=== PATIENT | female | born 1950 | race Caucasian/White ===

== ENCOUNTER → 2018-04-27 10:17 | Outpatient (CLI) | payer MEDICARE, OTHER, SELFPAY ==
--- NOTE | 2018-04-27 10:21 | DI.MG.S_ITS ---
BILATERAL DIGITAL SCREENING MAMMOGRAM 3D/2D WITH CAD: 04/27/2018 CLINICAL: Routine screening. Family history of breast cancer. Comparison is made to exams dated: 04/14/2017 mammogram, 03/26/2016 mammogram, and 02/07/2015 mammogram - [facility]. There are scattered fibroglandular elements in both breasts. Current study was also evaluated with a Computer Aided Detection (CAD) system. There is possible architectual distortion in the outer right breast at middle depth seen only on the craniocaudal view, which appears to pull calcifications towards its center. There is an asymmetry in the upper right breast at anterior depth. No significant masses, calcifications, or other findings are seen in either breast. IMPRESSION: INCOMPLETE: NEEDS ADDITIONAL IMAGING EVALUATION 1) Possible architectual distortion in the outer right breast at middle depth seen only on the craniocaudal view. Additional views with possible ultrasound recommended. 2) Asymmetry in the upper right breast at anterior depth. Additional views with possible ultrasound recommended. This exam was interpreted at Station ID: [id number]. NOTE: For mammograms, a report in lay terms will be sent to the patient. Approximately 15% of breast malignancies will not be visualized mammographically. In the management of a palpable breast mass, a negative mammogram must not discourage biopsy of a clinically suspicious lesion. Electronically Signed By: Maldonado Ruiz M.D. ecl/:04/27/2018 13:22:48 letter sent: Additional Imaging Needed ACR BI-RADS Category 0: Incomplete [id number]
== END ==
PROVIDERS: Family Provider Physician Assistant; PCP Physician Assistant; Visit Provider Physician Assistant
DX: Z12.31 Encounter for screening mammogram for malignant neoplasm of breast (principal); Z80.3 Family history of malignant neoplasm of breast
CPT/HCPCS: 77063; 77067

== ENCOUNTER → 2018-05-11 13:31 | Outpatient (CLI) | payer MEDICARE, OTHER, SELFPAY ==
--- NOTE | 2018-05-11 13:36 | DI.MG.S_ITS ---
UNILATERAL RIGHT DIGITAL DIAGNOSTIC MAMMOGRAM 3D/2D WITH ADDITIONAL VIEWS: 05/11/2018 CLINICAL: Additional evaluation requested from prior study. Comparison is made to exams dated: 04/27/2018 mammogram, 04/14/2017 mammogram, and 03/26/2016 mammogram - [facility]. There are scattered fibroglandular elements in the right breast. The architectural distortion in the right breast at 7 o'clock middle depth is much less prominent on additional views. The asymmetry in the right breast anterior depth superior region seen on the mediolateral oblique view only is not definitely seen on additional views. No other significant masses or calcifications are seen in the breast. IMPRESSION: INCOMPLETE: NEEDS ADDITIONAL IMAGING EVALUATION The architectural distortion in the right breast at 7 o'clock middle depth is indeterminate. An ultrasound is recommended. The asymmetry in the right breast anterior depth superior region seen on the mediolateral oblique view only is indeterminate. An ultrasound is recommended. This exam was interpreted at Station ID: [id number]. NOTE: For mammograms, a report in lay terms will be sent to the patient. Approximately 15% of breast malignancies will not be visualized mammographically. In the management of a palpable breast mass, a negative mammogram must not discourage biopsy of a clinically suspicious lesion. Electronically Signed By: Melissa Lees M.D. lk/:05/11/2018 15:06:46 letter sent: Additional Imaging Needed ACR BI-RADS Category 0: Incomplete [id number]
--- NOTE | 2018-05-11 13:36 | DI.US.S_ITS ---
PROCEDURE: US BREAST RT LIMITED COMPARISON: [facility], , MM SPECIAL VIEW RT, 05/11/2018, 14:06. INDICATIONS: Abnormal mammogram FINDINGS: IMPRESSION: Dictated by: Melissa Lees M.D. on 05/11/2018 at 17:25 Approved by: Melissa Lees M.D. on 05/11/2018 at 17:28
[2018-05-11 13:54] LABS: Add Manual Diff / Slide Review NO; Basophils Percent Auto 0.9 % (0-2); Eosinophils Percent Auto 2.1 % (2-4); Hemoglobin 15.6 g/dL (12.0-16.0); Lymphocytes Percent Auto 43.7 % (25-40); Mean Corpuscular HGB Conc 35.5 % (30-36); Mean Corpuscular Hemoglobin 31.2 PG (26-34); Mean Corpuscular Volume 87.8 fL (80-100); Monocytes Percent Auto 5.5 % (3-14); Neutrophils Absolute Auto 2800 /uL (3000-5900); Neutrophils Percent Auto 47.8 % (50-75); Platelet Count 162 X10^3/uL (150-400); Red Blood Cell Count 5.02 X10^6/uL (4.0-5.2); Red Cell Distribution Width 13.1 % (11.6-14.8); White Blood Cell Count 5.9 X10^3/uL (4.5-11.0)
--- NOTE | 2018-05-11 17:28 | DI.US.S_ITS ---
Patient Name: KAREN BAUTISTA date: 1950 Sex: F Attending Physician: Colten Indications: Date: 05/11/2018 14:50 At the request of: TENISHA EDWARDS Procedure: US breast RT limited ULTRASOUND OF RIGHT BREAST: 05/11/2018 CLINICAL: Patient returns today to evaluate a density in the right breast. No prior exams were available for comparison. Color flow ultrasound of the right breast was performed on the areas of interest. Dunaway scale images of the real-time examination were reviewed. IMPRESSION: NEGATIVE There is no sonographic evidence of malignancy. There is no abnormality seen in the right breast to correspond with the subtle mammography finding at 11 o'clock. This finding likely represent normal fibroglandular tissue. There is no abnormality seen in the right breast to correspond with the mammography finding at 7 o'clock. This finding is unchanged on multiple prior mammograms and likely represents fibroglandular tisse. A 1 year screening mammogram is recommended. This exam was interpreted at Station ID: [id number]. Electronically Signed By: Melissa mccloud/:05/11/2018 17:28:47 letter sent: Normal Exam Ultrasound BI-RADS: 1 Negative
== END ==
PROVIDERS: Family Provider Physician Assistant; PCP Physician Assistant; Visit Provider Physician Assistant
DX: R92.8 Other abnormal and inconclusive findings on diagnostic imaging of breast (principal); R71.8 Other abnormality of red blood cells
CPT/HCPCS: 36415; 76642; 77065; 85025; G0279

== ENCOUNTER → 2018-10-19 11:01 | Outpatient (CLI) | payer MEDICARE, OTHER, SELFPAY ==
[2018-10-19 12:11] LABS: BUN Creatinine Ratio 34.3 (6-22); Blood Urea Nitrogen 24 mg/dL (7-17); Calcium 9.2 mg/dL (8.4-10.2); Carbon Dioxide 31 mmol/L (22-32); Chloride 95 mmol/L (98-107); Estimated Glomerular Filt Rate > 60.0 mL/min (>60); Glucose 83 mg/dL (80-110); HEMOLYSIS < 15 (0-50); Potassium 4.8 mmol/L (3.4-5.1); Sodium 135 mmol/L (137-145)
== END ==
PROVIDERS: PCP Physician Assistant; Visit Provider Physician Assistant
DX: R94.4 Abnormal results of kidney function studies (principal); Z51.81 Encounter for therapeutic drug level monitoring
CPT/HCPCS: 36415; 80048

== ENCOUNTER → 2018-10-23 11:15 | Outpatient (CLI) | payer MEDICARE, OTHER, SELFPAY ==
[2018-10-23 17:09] LABS: Microalbumin Urine Random < 0.6 mg/dL (0-1.6)
[2018-10-23 17:17] LABS: Creatinine Urine Random 12.1 mg/dL; Microalbumi Creatinin Ratio Ur < 49.5 ug/mg CR (<30)
== END ==
PROVIDERS: PCP Physician Assistant; Visit Provider Physician Assistant
DX: R79.9 Abnormal finding of blood chemistry, unspecified (principal); R89.9 Unspecified abnormal finding in specimens from other organs, systems and tissues
CPT/HCPCS: 82043; 82570

== ENCOUNTER → 2018-10-27 09:42 | Outpatient (CLI) | payer MEDICARE, OTHER, SELFPAY ==
[2018-10-27 12:14] LABS: Creatinine Urine Random 56.9 mg/dL
[2018-10-27 12:23] LABS: Microalbumi Creatinin Ratio Ur 10.5 ug/mg CR (<30); Microalbumin Urine Random < 0.6 mg/dL (0-1.6)
== END ==
PROVIDERS: PCP Physician Assistant; Visit Provider Physician Assistant
DX: R79.9 Abnormal finding of blood chemistry, unspecified (principal); R89.9 Unspecified abnormal finding in specimens from other organs, systems and tissues
CPT/HCPCS: 82043; 82570

== ENCOUNTER → 2018-10-31 16:13 | Outpatient (CLI) | payer MEDICARE, OTHER, SELFPAY ==
[2018-10-31 16:49] LABS: BUN Creatinine Ratio 38.3 (6-22); Blood Urea Nitrogen 23 mg/dL (7-17); Calcium 9.9 mg/dL (8.4-10.2); Carbon Dioxide 28 mmol/L (22-32); Chloride 101 mmol/L (98-107); Estimated Glomerular Filt Rate > 60.0 mL/min (>60); Glucose 135 mg/dL (80-110); HEMOLYSIS < 15 (0-50); Potassium 3.7 mmol/L (3.4-5.1); Sodium 141 mmol/L (137-145); Uric Acid 3.3 mg/dL (2.5-6.2)
== END ==
PROVIDERS: PCP Physician Assistant; Visit Provider Physician Assistant
DX: E80.4 Gilbert syndrome (principal); K31.84 Gastroparesis; E79.0 Hyperuricemia without signs of inflammatory arthritis and tophaceous disease
CPT/HCPCS: 36415; 80048; 84550

== ENCOUNTER → 2018-11-13 14:53 | Outpatient (CLI) | payer MEDICARE, OTHER, SELFPAY ==
--- NOTE | 2018-11-13 14:57 | DI.RAD.S_ITS ---
PROCEDURE: XR ANKLE LT MIN 3V INDICATIONS: Left Ankle Pain TECHNIQUE: 3 views of the ankle were acquired. COMPARISON: None. FINDINGS: Bones: There is a nondisplaced fracture identified involving the tip of the lateral malleolus. Ankle mortise is well-maintained. No additional fractures are evident. Moderate-sized plantar calcaneal spur is present. Soft tissues: There is a tibiotalar joint effusion. Soft tissue swelling about the ankle is present. IMPRESSION: Nondisplaced distal lateral malleolar fracture. Dictated by: Wilian Richmond M.D. on 11/13/2018 at 14:37 Approved by: Wilian Richmond M.D. on 11/13/2018 at 14:42
== END ==
PROVIDERS: Family Provider Physician Assistant; PCP Physician Assistant; Visit Provider Physician Assistant
DX: S82.65XA Nondisplaced fracture of lateral malleolus of left fibula, initial encounter for closed fracture (principal); M25.572 Pain in left ankle and joints of left foot; M77.32 Calcaneal spur, left foot
CPT/HCPCS: 73610

== ENCOUNTER → 2018-11-17 12:14 | Outpatient (CLI) | payer MEDICARE, OTHER, SELFPAY ==
--- NOTE | 2018-11-17 12:18 | DI.RAD.S_ITS ---
PROCEDURE: XR LUMBAR SPINE 2-3V INDICATIONS: right hip pain TECHNIQUE: 3 views of the lumbar spine were acquired. COMPARISON: None. FINDINGS: Bones: 5 [id number] vertebrae are present. There is abnormal bony alignment, with grade 1 anterolisthesis of L4 and L5. No vertebral body compression fractures. No suspicious bony lesions. Note is made of moderately severe to severe degenerative disc disease at L5-S1, and also moderately severe facet osteoarthritis at becoming progressively more prominent from L3-S1. Soft tissues: Overlying bowel gas pattern is normal. No suspicious soft tissue calcifications. IMPRESSION: No acute disease is found and no trauma is seen over the lower half of the LS-spine there is progressively greater degenerative disc disease and facet osteoarthritis to the degree that significant spinal and foraminal stenosis would be expected. Dictated by: Jose Leon M.D. on 11/17/2018 at 12:35 Approved by: Jose Leon M.D. on 11/17/2018 at 12:37
== END ==
PROVIDERS: Family Provider Physician Assistant; PCP Physician Assistant; Visit Provider Physician Assistant
DX: M25.551 Pain in right hip (principal); M51.37 Other intervertebral disc degeneration, lumbosacral region; M47.817 Spondylosis without myelopathy or radiculopathy, lumbosacral region
CPT/HCPCS: 72110

== ENCOUNTER → 2018-11-25 09:33 | Outpatient (CLI) | payer MEDICARE, OTHER, SELFPAY ==
--- NOTE | 2018-11-25 09:37 | DI.MRI.S_ITS ---
PROCEDURE: MR LUMBAR SPINE WO CON INDICATIONS: Persistant low back pain radiating into right hip TECHNIQUE: Noncontrast sagittal T1 spin echo and T2 fast echo, sagittal STIR, axial T1 and T2 fast spin echo through the lumbar spine. In cases with scoliosis, additional coronal T2 fast spin echo may be performed. COMPARISON: [facility], CR, XR ANKLE LT MIN 3V, 11/13/2018, 15:06. [facility], CR, XR LUMBAR SPINE 2-3V, 11/17/2018, 12:19. FINDINGS: Image quality: Excellent. Alignment and Curvature: There are 5 lumbar-type vertebral bodies by plain film. There is mild, grade 1 retrolisthesis of L3 on L4 and L4 on L5. Bone Marrow: Marrow is of normal overall signal. No acute vertebral body compression fractures. T12 hemangioma. Minimal reactive signal within the endplates adjacent to the L3-L4 intervertebral disc. Spinal Cord: Conus medullaris terminates at the L1-L2 disc space level. Visualized cord demonstrates normal signal and size. Paraspinous Soft Tissues: No paravertebral masses. L1-L2: Mild disc desiccation. Mild facet and ligamentum flavum hypertrophy. No significant canal, nor foraminal stenosis. L2-L3: Mild disc desiccation and diffuse disc bulge with small superimposed right far lateral broad-based protrusion. Mild ligamentum flavum hypertrophy. Mild canal stenosis. Mild right greater than left foraminal stenosis. L3-L4: Mild disc height loss and desiccation. Mild diffuse disc bulge with small superimposed broad based right far lateral protrusion. Mild facet and ligamentum flavum hypertrophy. Mild canal stenosis. Mild right greater than left foraminal stenosis. L4-L5: Mild disc desiccation and diffuse disc bulge. Moderate facet hypertrophy bilaterally. Mild canal stenosis. Mild foraminal stenosis bilaterally. L5-S1: Moderate disc height loss and desiccation. Mild diffuse disc bulge/osteophyte. Mild bilateral facet hypertrophy. Mild canal stenosis. Mild bilateral foraminal stenosis. IMPRESSION: 1.Multilevel degenerative disc and facet disease, as well as ligamentum flavum hypertrophy and epidural lipomatosis. 2. Mild multilevel canal and foraminal stenoses. 3. No neural impingement. Dictated by: Sabine Sun M.D. on 11/27/2018 at 10:22 Approved by: Sabine Sun M.D. on 11/27/2018 at 10:31
== END ==
PROVIDERS: Family Provider Physician Assistant; PCP Physician Assistant; Visit Provider Physician Assistant
DX: M54.5 Low back pain (principal); M51.16 Intervertebral disc disorders with radiculopathy, lumbar region; M51.17 Intervertebral disc disorders with radiculopathy, lumbosacral region; M48.061 Spinal stenosis, lumbar region without neurogenic claudication; M48.07 Spinal stenosis, lumbosacral region; E88.2 Lipomatosis, not elsewhere classified
CPT/HCPCS: 72148

== ENCOUNTER → 2019-03-06 16:43 | Outpatient (CLI) | payer MEDICARE, OTHER, SELFPAY ==
[2019-03-06 17:19] LABS: Add Manual Diff / Slide Review NO; Basophils Absolute Auto 0 /uL (0-100); Basophils Percent Auto 0.8 % (0-2); Eosinophils Absolute Auto 200 /uL (0-450); Eosinophils Percent Auto 3.7 % (2-4); Hematocrit 44.9 % (36-46); Hemoglobin 15.6 g/dL (12.0-16.0); Lymphocytes Absolute Auto 2000 /uL (1100-4500); Lymphocytes Percent Auto 38.6 % (25-40); Mean Corpuscular HGB Conc 34.7 % (30-36); Mean Corpuscular Hemoglobin 30.1 PG (26-34); Mean Corpuscular Volume 86.8 fL (80-100); Monocytes Absolute Auto 300 /uL (0-900); Monocytes Percent Auto 5.8 % (3-14); Neutrophils Absolute Auto 2600 /uL (1500-7000); Neutrophils Percent Auto 51.1 % (50-75); Platelet Count 172 X10^3/uL (150-400); Red Blood Cell Count 5.18 X10^6/uL (4.0-5.2); Red Cell Distribution Width 13.4 % (11.6-14.8); White Blood Cell Count 5.1 X10^3/uL (4.5-11.0)
[2019-03-06 17:56] LABS: Alanine Aminotransferase 34 IU/L (9-52); Albumin 4.5 g/dL (3.5-5.0); Albumin Globulin Ratio 1.6 (1.0-2.8); Alkaline Phosphatase 132 U/L (38-126); Aspartate Aminotransferase 33 IU/L (14-36); Bilirubin Total 1.3 mg/dL (0.2-1.3); Blood Urea Nitrogen 21 mg/dL (7-17); Calcium 10.1 mg/dL (8.4-10.2); Carbon Dioxide 31 mmol/L (22-32); Chloride 99 mmol/L (98-107); Estimated Glomerular Filt Rate > 60.0 mL/min (>60); Globulin 2.8 g/dL (1.7-4.1); Glucose 97 mg/dL (80-110); HEMOLYSIS < 15 (0-50); Potassium 4.4 mmol/L (3.4-5.1); Sodium 138 mmol/L (137-145); Total Protein 7.3 g/dL (6.3-8.2); Uric Acid 4.8 mg/dL (2.5-6.2)
[2019-03-06 18:12] LABS: Vitamin D 25 Hydroxy (D3) 46.3 ng/mL (30.0-100.0)
[2019-03-06 18:23] LABS: Iron 74 ug/dL (37-170)
[2019-03-06 18:26] LABS: Thyroid Stimulating Hormone 1.78 uIU/mL (0.47-4.68)
[2019-03-06 18:44] LABS: Vitamin B12 685 pg/mL (239-931)
== END ==
PROVIDERS: Family Provider Physician Assistant; PCP Physician Assistant; Visit Provider Physician Assistant
DX: E79.0 Hyperuricemia without signs of inflammatory arthritis and tophaceous disease (principal); E80.4 Gilbert syndrome; M25.50 Pain in unspecified joint; R19.4 Change in bowel habit; R53.83 Other fatigue; M81.0 Age-related osteoporosis without current pathological fracture
CPT/HCPCS: 36415; 80053; 82306; 82607; 83540; 84443; 84550; 85025

== ENCOUNTER → 2019-03-16 13:31 | Outpatient (CLI) | payer MEDICARE, OTHER, SELFPAY | PROVIDERS: Family Provider Physician Assistant; PCP Physician Assistant; Visit Provider Physician Assistant | DX: M85.80 Other specified disorders of bone density and structure, unspecified site (principal); Z78.0 Asymptomatic menopausal state; K92.9 Disease of digestive system, unspecified; Z82.62 Family history of osteoporosis; Z87.81 Personal history of (healed) traumatic fracture | CPT/HCPCS: 77080 ==

== ENCOUNTER → 2019-03-19 12:08 | Outpatient (CLI) | payer MEDICARE, OTHER, SELFPAY ==
--- NOTE | 2019-03-19 | DI.US.S_ITS ---
PROCEDURE: US ABDOMEN LIMITED INDICATIONS: ELEVATED LFTS, CHANGE IN BOWEL HABITS TECHNIQUE: Real-time focused scanning was performed of the abdomen, with image documentation. COMPARISON: [facility], CT, ABDOMEN/PELVIS WITH CONTRAST, 01/07/2016, 11:45. [facility], US, ABDOMEN COMPLETE, 03/06/2014, 8:53. FINDINGS: Liver is diffusely increased in echogenicity. Presumed mid right hepatic lobe hemangioma not significantly changed measuring 2.4 x 2.0 x 2.8 cm. Normal hepatic size. Normal gallbladder. Prominence of the extra hepatic bile duct measuring up to 8.9 mm. IMPRESSION: 1. Increased hepatic echogenicity noted possibly related to hepatic steatosis but other sources of hepatocellular disease cannot be excluded. Recommend clinical correlation. 2. Presumed cavernous hemangioma within the mid right hepatic lobe not significantly changed. 3. Prominence of the extra hepatic bile duct. Recommend correlation with LFTs. Dictated by: Marcellus RODRIGUEZ Interpreted: Blanca Berger MD on 03/19/2019 at 13:53 Approved by: Blanca Berger MD, PhD on 03/19/2019 at 16:32
== END ==
PROVIDERS: Family Provider Physician Assistant; PCP Physician Assistant; Visit Provider Internal Medicine
DX: R19.4 Change in bowel habit (principal); R79.89 Other specified abnormal findings of blood chemistry
CPT/HCPCS: 76705

== ENCOUNTER 2019-03-21 13:13 | Day surgery (SDC) | payer MEDICARE, OTHER, SELFPAY ==
[2019-03-21 14:25] VITALS: BP 151/78; PULSE 65; RESP 99; TEMP 37; O2SAT 17
[2019-03-21 14:29] VITALS: BMI 22.6
[2019-03-21] MEDS: SODIUM CHLORIDE 0.9% 1,000 ML 200 ML IV (14:43)
--- NOTE | 2019-03-21 15:53 | PM.PREOP ---
Pre-operative Note Interval Note History & Physical reviewed/Exam performed by Physician: Yes Changes to H&P: No ASA Class (for procedural sedation): II
--- NOTE | 2019-03-21 16:28 | SUR.OPER ---
GLASSES IN LABELED BAG TO PACU WITH PATIENT.
[2019-03-21] MEDS: fentaNYL 250 MCG/5 ML INJ IV (16:33)
[2019-03-21] MEDS: MIDAZOLAM 5 MG/5 ML VIAL IV (16:34)
--- NOTE | 2019-03-21 17:08 | PM.OP.ENDO ---
Operative Date/Time/Diagnoses Date of procedure: 03/21/19 Procedure & Clinicians Study performed: Colonoscopy Moderate conscious sedation was administered by the endoscopy nurse and supervised by the endoscopist. The following parameters were monitored: Oxygen saturation, heart rate, blood pressure, and response to care. Sedation: 6 mg IV midazolam, 150 mcg IV fentanyl Indications: Change in bowel habits. Personal history of colon polyps. Last colonoscopy 2013 Procedure Notes Procedure in detail: Prior to the procedure, history and physical was performed, and patient medications and allergies were reviewed. Preprocedure nursing history and assessment was reviewed. Patient identification and proposed procedure were verified by the physician and nurse in the procedure room. The physical status of the patient was reassessed after the procedure. After informed consent was obtained including risks, benefits, and alternatives, the scope was passed under direct vision. Throughout the procedure, the patient's blood pressure, pulse, and oxygen saturations were monitored continuously. The slim colonoscope was introduced through the anus and advanced to the cecum as identified by the appendiceal orifice and ileocecal valve. The patient tolerated the procedure well. Bowel prep was deemed adequate to detect polyps greater than 5 mm. PRATIK and perianal examinations were unremarkable. Retroflexion in the rectum was unrevealing The entire examined colon was markedly tortuous. There was looping in the sigmoid colon. Many sigmoid colon diverticula were noted Impression: Sigmoid colon diverticulosis Tortuous colon No specimens taken Sedation minutes: 34 Complications: other (EBL none. No complications) Plan for aftercare: Repeat colonoscopy in 5 years for screening purposes Resume home medications High fiber diet Follow-up in GI clinic as previously scheduled Patient has a contact number available for emergencies. The signs and symptoms of potential delayed complications were discussed with the patient. Return to normal activities tomorrow. Written discharge instructions were provided to the patient. Discharge home with escort
== END 2019-03-21 17:25 | disposition home or self-care (01) ==
PROVIDERS: Family Provider Physician Assistant; PCP Physician Assistant; Visit Provider Internal Medicine
PROC: 0DJD8ZZ Inspection of Lower Intestinal Tract, Via Natural or Artificial Opening Endoscopic (ICD-10-PCS; CPT 45378; principal; 2019-03-21 15:00)
DX: R19.4 Change in bowel habit (principal); K57.30 Diverticulosis of large intestine without perforation or abscess without bleeding; R79.89 Other specified abnormal findings of blood chemistry; Z86.010 Personal history of colon polyps; Z80.0 Family history of malignant neoplasm of digestive organs
CPT/HCPCS: 45378; J2250; J3010

== ENCOUNTER 2019-03-26 09:23 | Emergency (ER) | payer MEDICARE, OTHER, SELFPAY ==
[2019-03-26 09:31] VITALS: BP 181/64; PULSE 66; RESP 20; TEMP 36.9; O2SAT 99; BMI 22.7
--- NOTE | 2019-03-26 10:00 | ED.ABDPAIN ---
HPI - Abdominal Pain General Chief Complaint: Abdominal Pain Stated Complaint: Abd pain Time Seen by Provider: 03/26/19 09:44 Source: patient Mode of arrival: ambulatory Limitations: no limitations History of Present Illness HPI narrative: Patient comes emergency department complaining of right upper quadrant abdominal pain that is under her ribs. Patient states she has been having this pain for years on and off, but that this time, she has nausea. Patient states she did had a big workup for the pain of 5 years ago, and nothing was found. The patient just had a colonoscopy this last week with Dr. Parekh, and she states that she mentioned to him that her liver enzymes had been elevated on and off over time, and he decided to do an ultrasound of her right upper quadrant. Patient states that he told her that she had a dilated common bile duct. She was not notified of any gallstones, though she states she has never been found to have gallstones in the past. Patient states her bilirubin has fluctuated between normal and mildly elevated over the last couple years. Patient states that her colonoscopy was unremarkable, as well as she knows, and that her health is otherwise good. No other complaints at this time. No chest pain or shortness breath. No cough. No fevers. No urinary symptoms. Patient has been nauseated and has vomited once this morning, but states she is feeling better now. She states pressure makes the pain worse, and nothing makes it better. It generally just resolved on its own, she states. Related Data Home Medications Medication Instructions Recorded Confirmed ResMed Aircurve 10 BIPAP #1 ea 10/26/18 03/26/19 levalbuterol 1.25 mg/3 mL solution 1.25 mg INHALATION Q4-6H PRN 12/28/18 03/26/19 for nebulization fluticasone propionate 110 1 - 2 puff INHALATION Q12H PRN 03/06/19 03/26/19 mcg/actuation HFA aerosol inhaler metronidazole 1 % topical cream 1 applictn TOP BID gram 03/06/19 03/26/19 mupirocin 2 % topical ointment 1 applictn TOP BID PRN 03/06/19 03/26/19 cholecalciferol (vitamin D3) 1,000 unit PO DAILY 03/26/19 03/26/19 [Vitamin D3] epinephrine [EpiPen 2-Niles] 3 ml IM PRN PRN 03/26/19 03/26/19 ketotifen fumarate [Zaditor] 1 drp EYE-BOTH PRN PRN 03/26/19 03/26/19 lifitegrast [Xiidra] 1 drp EYE-BOTH Q12H 03/26/19 03/26/19 loratadine [Claritin] 10 mg PO DAILY PRN 03/26/19 03/26/19 omega [id number]-fish oil [Fish Oil] 1,000 mg PO DAILY 03/26/19 03/26/19 polyethylene glycol 3350 [Miralax] 2 tsp PO DAILY 03/26/19 03/26/19 ranitidine HCl 150 mg PO BEDTIME PRN 03/26/19 03/26/19 Previous Rx's Medication Instructions Recorded azelastine 137 mcg (0.1 %) nasal 1 - 2 spray INTRANASAL BID #200 05/17/18 spray aerosol actuation levalbuterol HFA 45 mcg/actuation 2 puff INHALATION Q4-6H PRN #15 01/04/19 aerosol inhaler gram zolpidem 5 mg tablet 5 mg PO BEDTIME PRN #30 tab 01/04/19 Spacer for inhaler #1 ea 02/02/19 hyoscyamine sulfate 0.25 mg PO QID PRN #20 tab 03/26/19 ondansetron 4 mg PO Q6H PRN #14 tab 03/26/19 Allergies Allergy/AdvReac Type Severity Reaction Status Date / Time hydrocodone [HYDROCODONE] Allergy Intermediate ITCHY, Verified 03/21/19 14:34 NAUSEA, SOB Proton Pump Inhibitors AdvReac Severe Diarrhea - Verified 03/21/19 14:34 [PROTON PUMP INHIBITORS] severe cetirizine [CETIRIZINE] AdvReac Intermediate insomnia, Verified 03/21/19 14:34 nightmares fexofenadine [From DILAN] AdvReac Intermediate UNABLE TO Verified 03/21/19 14:34 SLEEP ENOUGH TO DISRUPT LIFE fluorouracil [From Efudex] AdvReac Intermediate depression Verified 03/21/19 14:34 and brain fogginess Latex, Natural Rubber AdvReac Intermediate Skin Verified 03/21/19 14:34 redness montelukast [MONTELUKAST] AdvReac Intermediate Anxiety Verified 03/21/19 14:34 palpitations rabeprazole [From ACIPHEX] AdvReac Mild Headaches Verified 03/21/19 14:34 Dry throat Review of Systems Constitutional Denies chills, Denies fever(s), Denies lethargy and Denies weakness Eyes Denies change in vision, Denies eye discharge, Denies irritation and Denies loss of vision ENT Ears, Nose, Mouth, and Throat: Denies change in voice, Denies neck pain and Denies sore throat Cardiovascular Denies chest pain, Denies irregular heart rhythm, Denies lightheadedness, Denies palpitations, Denies dyspnea, Denies dyspnea on exertion and Denies orthopnea Respiratory Denies cough, Denies dyspnea, Denies dyspnea on exertion and Denies wheezing Gastrointestinal Gastrointestinal: Reports abdominal pain, Denies change in bowel habits, Denies diarrhea, Denies nausea and Denies vomiting Genitourinary Denies hematuria, Denies flank pain, Denies urinary incontinence and Denies urinary urgency Musculoskeletal Denies neck pain Integumentary/Breasts Denies pruritus, Denies erythema, Denies rash and Denies wounds Neurologic Denies confusion, Denies loss of vision and Denies weakness Psychiatric Denies anxiety, Denies confusion, Denies depression, Denies homicidal ideation and Denies suicidal ideation Endocrine Denies palpitations Hematologic/Lymphatic Denies easy bruising Allergic/Immunologic Denies wheezing ON LICENSE OF [facility] Medical History Allergic rhinitis (Chronic) Asthma (Chronic) 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) Eczema (Chronic) GERD (gastroesophageal reflux disease) (Chronic) Gastroparesis (Chronic) Multinodular goiter (Chronic ~1999) SVT (supraventricular tachycardia) (Chronic 02/2016) Sleep apnea (Chronic) Actinic keratosis (Resolved) Colon polyps (Resolved 04/2014) Gastric polyps (Resolved 04/2014) Family History Father Heart disease Mother Dementia Social History marital status: details: to Mert, lives in [place] number of children: 0 household members: spouse lives independently: Yes caregiver/support person: No housing: house pets and animals: Yes (dog, Nery) education level: college 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, 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 Smoking Status: Former smoker Tobacco: How many years used: 1 second hand exposure: Yes alcohol intake: current substance use type: does not use Exam Initial Vital Signs Initial Vital Signs: Vital Signs Temperature 98.4 F 03/26/19 09:31 Pulse Rate 66 03/26/19 09:31 Respiratory Rate 20 03/26/19 09:31 Blood Pressure 181/64 H 03/26/19 09:31 Pulse Oximetry 99 03/26/19 09:31 Const General: cooperative and well developed Nutritional Appearance: well nourished Orientation: alert, awake, oriented x3 and not confused HENMT Head: normocephalic and atraumatic Ears: external ears normal Nose: external nose normal and No nasal discharge Face and sinus: face symmetric and No dry mucous membranes Mouth: oral mucosae normal and moist mucous membranes Teeth and gingiva: dentition normal Eyes General: appearance normal, both eyes and all related structures Eyelids: eyelids normal Conjunctivae: conjunctivae normal Sclera: sclerae normal Pupils: PERRL EOM: EOM intact bilaterally Neck Neck: normal visual inspection, trachea midline, No lymphadenopathy, No midline deformity and No JVD Lymphatic: No lymphedema Chest Chest: normal inspection of the chest Resp Effort & Inspection: normal respiratory effort, able to speak in complete sentences, no respiratory distress and no use of accessory muscles Auscultation: clear to auscultation bilaterally, no rales, no rhonchi and no wheezes Cardio Rate: regular rate Rhythm: regular rhythm Heart Sounds: no click, no gallops, no murmurs and no rubs Pulses: normal peripheral pulses GI Inspection: non-distended Palpation: soft, no hepatosplenomegaly, No guarding, No pulsatile mass and No tender Auscultation: normal bowel sounds Back/Spine/Pelvis Back: No CVA tenderness Cervical Spine: cervical ROM normal and No pain with cervical ROM Thoracic/Lumbar Spine: thoracic and lumbar spine normal to inspection Skin General: no rashes or lesions noted, No jaundice and No petechiae Neuro General: alert, oriented x3, gait normal and no focal motor deficits Speech: speech normal Extrem General: full ROM, no clubbing, cyanosis or edema, no pedal edema and no calf tenderness Psych Appearance: well kempt Mental Status: mental status grossly normal Attitude: cooperative Thought Content: normal and suicidality Judgment: judgment good Course Course Narrative: The patient was worked up with laboratory studies, and treated symptomatically for her pain and nausea. Medical records were reviewed, and it was found that she had a slight dilation of the extrahepatic bile duct at 8.9 mm. No stones appear to have been visualized. Patient was also found to have hepatic steatosis. Repeat ultrasound today was essentially unchanged. I spoke with Dr. Robins who did not feel that the patient needed any further intervention at this time. She recommended that patient follow up with Dr. Parekh, and get set up for an ERCP or MRCP as an outpatient and non emergently. I discussed the plan with the patient, who is agreeable. Patient was found to be feeling better after symptomatic treatment in the emergency department. We have discussed the usual indications for return. Orders Ordered: Discontinued Medications Hydromorphone HCl (Dilaudid) 0.5 mg IV NOW ONE Stop: 03/26/19 10:01 Last Admin: 03/26/19 10:15 Dose: 0.5 mg Sodium Chloride (Normal Saline 0.9%) 1,000 mls @ 1,000 mls/hr IV BOLUS ONE Stop: 03/26/19 10:59 Last Infusion: 03/26/19 11:06 Dose: 0 mls/hr Admin: 03/26/19 10:15 Dose: 1,000 mls/hr Ketorolac Tromethamine (Toradol) 30 mg IV NOW ONE Stop: 03/26/19 10:01 Last Admin: 03/26/19 10:14 Dose: 30 mg Ondansetron HCl (Zofran) 4 mg IV NOW ONE Stop: 03/26/19 10:01 Last Admin: 03/26/19 10:14 Dose: 4 mg Vital Signs - 8 hr 03/26/19 09:31 03/26/19 10:30 03/26/19 11:00 Temperature 98.4 F Pulse Rate 66 58 L 64 Respiratory Rate 20 15 Blood Pressure 181/64 H Blood Pressure [Left Arm] 153/74 H 147/106 H Pulse Oximetry 99 100 03/26/19 12:01 Temperature Pulse Rate 58 L Respiratory Rate 16 Blood Pressure Blood Pressure [Left Arm] 151/79 H Pulse Oximetry 98 MDM - Abdominal Pain Medical Records Attestation: I reviewed the patient's medical records. Lab Data Attestation: I reviewed the patient's lab results. Result diagrams: 03/26/19 09:51 03/26/19 10:30 Lab Results 03/26/19 03/26/19 Range/Units 09:51 10:30 WBC 4.5 (4.5-11.0) X10^3/uL RBC 5.22 H (4.0-5.2) X10^6/uL Hgb 15.8 (12.0-16.0) g/dL Hct 45.2 (36-46) % MCV 86.6 (80-100) fL MCH 30.2 (26-34) PG MCHC 34.9 (30-36) % RDW 13.8 (11.6-14.8) % Plt Count 183 (150-400) X10^3/uL Neut % (Auto) 44.5 L (50-75) % Lymph % (Auto) 42.9 H (25-40) % Payne % (Auto) 6.9 (3-14) % Eos % (Auto) 4.9 H (2-4) % Baso % (Auto) 0.8 (0-2) % Neut # (Auto) 2000 (4451-7563) /uL Lymph # (Auto) 1900 (2064-8394) /uL Payne # (Auto) 300 (0-900) /uL Eos # (Auto) 200 (0-450) /uL Baso # (Auto) 0 (0-100) /uL Sodium 142 (137-145) mmol/L Potassium 4.1 (3.4-5.1) mmol/L Chloride 108 H (98-107) mmol/L Carbon Dioxide 26 (22-32) mmol/L BUN 19 H (7-17) mg/dL Creatinine 0.70 (0.52-1.04) mg/dL Estimated GFR > 60.0 (>60) mL/min BUN/Creatinine Ratio 27.1 H (6-22) Glucose 89 (80-110) mg/dL Calcium 8.9 (8.4-10.2) mg/dL Total Bilirubin 1.5 H (0.2-1.3) mg/dL AST 26 (14-36) IU/L ALT 36 (9-52) IU/L Alkaline Phosphatase 101 (38-126) U/L Total Protein 6.5 (6.3-8.2) g/dL Albumin 3.9 (3.5-5.0) g/dL Globulin 2.6 (1.7-4.1) g/dL Albumin/Globulin Ratio 1.5 (1.0-2.8) Imaging Data US - abdomen: Radiologist's impression: PROCEDURE: US ABDOMEN LIMITED INDICATIONS: INCREASED RUQ PAIN TECHNIQUE: Real-time scanning was performed of the abdominal and retroperitoneal organs, with image documentation. COMPARISON: [facility], CT, ABDOMEN/PELVIS WITH CONTRAST, 01/07/2016, 11:45. [facility], [place], US ABDOMEN LIMITED, 03/19/2019, 12:46. FINDINGS: Liver: The liver is normal in size and demonstrates moderately increased echogenicity when compared to the right kidney. A small ovoid area of decreased echogenicity within the liver near the gregory hepatis is evident measuring up to 1.4 cm. A similar appearance is noted within the region of the gallbladder fossa. However, there is a heterogeneous structure that demonstrates decreased echogenicity involving the right hepatic lobe that measures up to 3 cm in diameter (previously measuring up to 2.8 cm in diameter. Gallbladder: No cholelithiasis or evidence of gallbladder wall inflammation. Biliary ducts: Intrahepatic bile ducts are non-dilated. Extrahepatic bile duct caliber measures 10 mm. Normal is 6-7 mm or less in diameter, or 10 mm or less post-cholecystectomy. Pancreas: Visualized portions of the pancreas are sonographically normal. Spleen: Spleen is normal in size and homogeneous in echotexture. Kidneys: The kidneys were not adequately evaluated. However, the imaged portions of both kidneys are within normal limits without hydronephrosis. IMPRESSION: 1. Hepatic steatosis. Please correlate clinically to exclude other chronic liver diseases. (There likely are small areas of fatty sparing within the left hepatic lobe.) 2. No cholelithiasis or evidence of acute cholecystitis. 3. Hemangioma within the right hepatic lobe is slightly larger on the current study. 4. Dilatation of the common bile duct may be within normal limits for this patient. Please correlate clinically with laboratory values. If there is clinical concern for choledocholithiasis, please consider MRCP for further evaluation. Dictated by: Wilian Richmond M.D. on 03/26/2019 at 13:01 Approved by: Wilian Richmond M.D. on 03/26/2019 at 13:06 Discharge Plan Departure Patient Disposition: Home Clinical Impression: Abdominal pain Qualifiers: Abdominal location: right upper quadrant Qualified Code(s): R10.11 - Right upper quadrant pain Discharge Date/Time: 03/26/19 14:18 Interventions: ED Discharge Assessment Last Done: 03/26/19 14:17 Instructions: DI for Abdominal Pain-Adult Activity Restrictions/Additional Instructions: Your labs look great. Your bilirubin is very slightly elevated at 1.5, but the rest of your liver labs are normal. Your ultrasound is unchanged from the 1 he had last week, which showed a very mild dilation of your common bile duct. Her case has been discussed with the on-call surgeon, who does not feel that there is any emergent intervention that needs to be done today. He will most likely need to have an ERCP or MRCP, and should follow up with Dr. Parekh to discuss this. Please call his office tomorrow to make an appointment for follow-up. Prescriptions: New ondansetron 4 mg tablet,disintegrating 4 mg PO Q6H PRN (Reason: nausea and vomiting) Qty: 14 RF: 0 hyoscyamine sulfate 0.125 mg tablet,disintegrating 0.25 mg PO QID PRN (Reason: dyspepsia) Qty: 20 RF: 0 No Action levalbuterol HCl 1.25 mg/3 mL solution for nebulization 1.25 mg INHALATION Q4-6H PRN (Reason: Allergic Symptoms) RF: 0 zolpidem 5 mg tablet 5 mg PO BEDTIME PRN (Reason: insomnia when traveling) Qty: 30 RF: 0 levalbuterol tartrate [Xopenex HFA] 45 mcg/actuation HFA aerosol inhaler 2 puff INHALATION Q4-6H PRN (Reason: shortness of breath or wheezing) Qty: 15 RF: 3 azelastine 137 mcg (0.1 %) aerosol,spray 1 - 2 spray Intranasal BID Qty: 200 RF: 3 Spacer for inhaler Qty: 1 RF: 0 Flovent HFA 110 mcg/actuation HFA aerosol inhaler 1 - 2 puff INHALATION Q12H PRN (Reason: Allergy Symptoms) RF: 0 metronidazole 1 % cream 1 applictn TOP BID RF: 0 mupirocin 2 % ointment 1 applictn TOP BID PRN (Reason: Allergy Symptoms) RF: 0 epinephrine [EpiPen 2-Niles] 0.3 mg/0.3 mL auto-injector 3 ml IM PRN PRN (Reason: Allergic Reaction) RF: 0 Xiidra 5 % dropperette 1 drp EYE-BOTH Q12H RF: 0 ketotifen fumarate [Zaditor] 0.025 % (0.035 %) Drops 1 drp EYE-BOTH PRN PRN (Reason: Allergy Symptoms) RF: 0 polyethylene glycol 3350 [Miralax] 17 gram/dose Powder 2 tsp PO DAILY RF: 0 loratadine [Claritin] 10 mg Tablet 10 mg PO DAILY PRN (Reason: Allergy Symptoms) RF: 0 cholecalciferol (vitamin D3) [Vitamin D3] 1,000 unit Capsule 1,000 unit PO DAILY RF: 0 omega 8-hfq-ppo-fish oil [Fish Oil] 1,000 mg (120 mg-180 mg) Capsule 1,000 mg PO DAILY RF: 0 ranitidine HCl 150 mg capsule 150 mg PO BEDTIME PRN (Reason: Heartburn) RF: 0 ResMed Aircurve 10 BIPAP Qty: 1 RF: 0 Referrals: Megan Abel PA-C [Primary Care Provider] -
[2019-03-26 10:12] LABS: Add Manual Diff / Slide Review NO; Basophils Absolute Auto 0 /uL (0-100); Basophils Percent Auto 0.8 % (0-2); Eosinophils Absolute Auto 200 /uL (0-450); Eosinophils Percent Auto 4.9 % (2-4); Hematocrit 45.2 % (36-46); Hemoglobin 15.8 g/dL (12.0-16.0); Lymphocytes Absolute Auto 1900 /uL (1100-4500); Lymphocytes Percent Auto 42.9 % (25-40); Mean Corpuscular HGB Conc 34.9 % (30-36); Mean Corpuscular Hemoglobin 30.2 PG (26-34); Mean Corpuscular Volume 86.6 fL (80-100); Monocytes Absolute Auto 300 /uL (0-900); Monocytes Percent Auto 6.9 % (3-14); Neutrophils Absolute Auto 2000 /uL (1500-7000); Neutrophils Percent Auto 44.5 % (50-75); Platelet Count 183 X10^3/uL (150-400); Red Blood Cell Count 5.22 X10^6/uL (4.0-5.2); Red Cell Distribution Width 13.8 % (11.6-14.8); White Blood Cell Count 4.5 X10^3/uL (4.5-11.0)
[2019-03-26] MEDS: KETOROLAC 60 MG/2 ML VIAL 30 MG IV (10:14)
[2019-03-26] MEDS: ONDANSETRON 4 MG/2 ML INJ IV (10:14)
[2019-03-26] MEDS: SODIUM CHLORIDE 0.9% 1,000 ML 1000 ML IV (10:15)
[2019-03-26] MEDS: HYDROMORPHONE 1 MG INJ 0.5 MG IV (10:15)
[2019-03-26 10:30] VITALS: BP 153/74; PULSE 58; RESP 15; O2SAT 100
[2019-03-26 10:52] LABS: Alanine Aminotransferase 36 IU/L (9-52); Albumin 3.9 g/dL (3.5-5.0); Albumin Globulin Ratio 1.5 (1.0-2.8); Alkaline Phosphatase 101 U/L (38-126); Aspartate Aminotransferase 26 IU/L (14-36); BUN Creatinine Ratio 27.1 (6-22); Bilirubin Total 1.5 mg/dL (0.2-1.3); Blood Urea Nitrogen 19 mg/dL (7-17); Calcium 8.9 mg/dL (8.4-10.2); Carbon Dioxide 26 mmol/L (22-32); Chloride 108 mmol/L (98-107); Estimated Glomerular Filt Rate > 60.0 mL/min (>60); Globulin 2.6 g/dL (1.7-4.1); Glucose 89 mg/dL (80-110); HEMOLYSIS < 15 (0-50); Potassium 4.1 mmol/L (3.4-5.1); Sodium 142 mmol/L (137-145); Total Protein 6.5 g/dL (6.3-8.2)
[2019-03-26 11:00] VITALS: BP 147/106; PULSE 64
[2019-03-26 12:01] VITALS: BP 151/79; PULSE 58; RESP 16; O2SAT 98
--- NOTE | 2019-03-26 12:20 | DI.US.S_ITS ---
PROCEDURE: US ABDOMEN LIMITED INDICATIONS: INCREASED RUQ PAIN TECHNIQUE: Real-time scanning was performed of the abdominal and retroperitoneal organs, with image documentation. COMPARISON: [facility], CT, ABDOMEN/PELVIS WITH CONTRAST, 01/07/2016, 11:45. [facility], [place], US ABDOMEN LIMITED, 03/19/2019, 12:46. FINDINGS: Liver: The liver is normal in size and demonstrates moderately increased echogenicity when compared to the right kidney. A small ovoid area of decreased echogenicity within the liver near the gregory hepatis is evident measuring up to 1.4 cm. A similar appearance is noted within the region of the gallbladder fossa. However, there is a heterogeneous structure that demonstrates decreased echogenicity involving the right hepatic lobe that measures up to 3 cm in diameter (previously measuring up to 2.8 cm in diameter. Gallbladder: No cholelithiasis or evidence of gallbladder wall inflammation. Biliary ducts: Intrahepatic bile ducts are non-dilated. Extrahepatic bile duct caliber measures 10 mm. Normal is 6-7 mm or less in diameter, or 10 mm or less post-cholecystectomy. Pancreas: Visualized portions of the pancreas are sonographically normal. Spleen: Spleen is normal in size and homogeneous in echotexture. Kidneys: The kidneys were not adequately evaluated. However, the imaged portions of both kidneys are within normal limits without hydronephrosis. IMPRESSION: 1. Hepatic steatosis. Please correlate clinically to exclude other chronic liver diseases. (There likely are small areas of fatty sparing within the left hepatic lobe.) 2. No cholelithiasis or evidence of acute cholecystitis. 3. Hemangioma within the right hepatic lobe is slightly larger on the current study. 4. Dilatation of the common bile duct may be within normal limits for this patient. Please correlate clinically with laboratory values. If there is clinical concern for choledocholithiasis, please consider MRCP for further evaluation. Dictated by: Wilian Richmond M.D. on 03/26/2019 at 13:01 Approved by: Wilian Richmond M.D. on 03/26/2019 at 13:06
[2019-03-26 13:00] VITALS: BP 135/69; PULSE 61; RESP 17; O2SAT 98
== END 2019-03-26 14:18 | disposition home or self-care (01) ==
PROVIDERS: Emergency Provider Emergency Medicine; PCP Physician Assistant
DX: R10.11 Right upper quadrant pain (principal)
CPT/HCPCS: 36415; 36591; 76705; 80053; 85025; 96361; 96374; 96375; 99283; 99284; J1170; J1885; J2405

== ENCOUNTER → 2019-04-09 06:00 | Outpatient (CLI) | payer MEDICARE, OTHER, SELFPAY ==
--- NOTE | 2019-04-09 06:09 | DI.MRI.S_ITS ---
PROCEDURE: MR ABDOME PELVIS WWO CON INDICATIONS: RUQ pain; dilated biliary duct; nausea; Hepatic abnormalities TECHNIQUE: Coronal HASTE, axial 2D FLASH in- and [id number]; axial breath-hold T2 FSE; dynamic axial VIBE during IV gadolinium administration; postgadolinium coronal VIBE or 2D FLASH with fat saturation from the hepatic dome to the iliac crests. COMPARISON: [facility], MR, ABDOMEN W&WO CONTRAST, 03/25/2014, 19:03. [facility], CT, ABDOMEN/PELVIS WITH CONTRAST, 01/07/2016, 11:45. [facility], US, US ABDOMEN LIMITED, 03/19/2019, 12:46. [facility], US, US ABDOMEN LIMITED, 03/26/2019, 12:37. FINDINGS: Image quality: Excellent. Lung bases: No basal pleural effusions. Heart is borderline enlarged. Solid organs: Within the inferior right hepatic lobe traversing segment 5 and 6, there is an oval mass lesion redemonstrated measuring approximately 2.2 x 2.0 cm in transverse dimension, slightly increased from approximately 1.9 x 1.9 cm on the prior MRI. This demonstrates T2 hyperintensity and T1 hypointensity with slightly lobulated margins. Following contrast administration, there is discontinuous peripheral nodular enhancement on the arterial phase with progressive centripetal enhancement internally on the portal venous phase and homogeneous hypervascular enhancement on the delayed phase. 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 No additional hepatic mass lesions identified. The gallbladder demonstrates no gallstones, wall thickening, or pericholecystic fluid. There is minimal central intrahepatic biliary ductal dilatation. The extrahepatic ducts are mildly dilated, with the common bile duct measuring up to 0.9 cm with gradual tapering distally into the ampulla of Vater. No discrete filling defects to suggest choledocholithiasis. No pancreatic duct dilatation. No discrete pancreatic or ampullary mass. No peripancreatic edema or fluid collections. There is mild fatty infiltration of the pancreas. The kidneys demonstrate no hydronephrosis. No adrenal nodules. Nodes and vessels: No mesenteric or retroperitoneal lymphadenopathy. Bowel and peritoneum: Visualized bowel loops appear normal in caliber. There is colonic diverticulosis within the sigmoid colon without acute diverticulitis. No intraperitoneal free fluid. Pelvis: There is mild trabeculation of the bladder wall. There is incomplete bladder distention. There are 2 small hypoenhancing hypoattenuating lesions within the uterus compatible with fibroids. No free fluid in the pelvis. Bones and soft tissues: Visualized osseous structures demonstrate no suspicious lesions. IMPRESSION: 1. Right hepatic lobe mass lesion again demonstrates imaging findings consistent with a cavernous hemangioma. There is slight increase in size compared to the prior MRI 03/25/14. 2. Mild biliary ductal dilatation without evidence of choledocholithiasis or a discrete mass lesion. Recommend correlation clinically included with laboratory values. 3. No evidence of cholelithiasis or cholecystitis. 4. Probable small fibroids in the uterus. Dictated by: Nolberto Rodriguez M.D. on 04/09/2019 at 11:14 Approved by: Nolberto Rodriguez M.D. on 04/09/2019 at 11:35
== END ==
PROVIDERS: PCP Physician Assistant; Referring Provider Internal Medicine; Visit Provider Physician Assistant
DX: R10.11 Right upper quadrant pain (principal); R11.0 Nausea; K83.8 Other specified diseases of biliary tract; K76.9 Liver disease, unspecified
CPT/HCPCS: 72197

== ENCOUNTER → 2019-04-17 14:58 | Outpatient (CLI) | payer MEDICARE, OTHER, SELFPAY ==
[2019-04-17 16:07] LABS: Alanine Aminotransferase 28 IU/L (9-52); Albumin 4.4 g/dL (3.5-5.0); Albumin Globulin Ratio 1.6 (1.0-2.8); Alkaline Phosphatase 129 U/L (38-126); Aspartate Aminotransferase 30 IU/L (14-36); Bilirubin Total 1.1 mg/dL (0.2-1.3); Globulin 2.8 g/dL (1.7-4.1); HEMOLYSIS < 15 (0-50); Total Protein 7.2 g/dL (6.3-8.2)
== END ==
PROVIDERS: PCP Physician Assistant; Visit Provider Physician Assistant
DX: R74.8 Abnormal levels of other serum enzymes (principal)
CPT/HCPCS: 36415; 80076

== ENCOUNTER → 2019-05-15 14:49 | Outpatient (CLI) | payer MEDICARE, OTHER, SELFPAY ==
--- NOTE | 2019-05-15 14:53 | DI.MG.S_ITS ---
BILATERAL DIGITAL SCREENING MAMMOGRAM 3D/2D WITH CAD: 05/15/2019 CLINICAL: Routine screening. Family history of breast cancer. Comparison is made to exams dated: 05/11/2018 mammogram, 04/27/2018 mammogram, and 04/14/2017 mammogram - [facility]. There are scattered fibroglandular elements in both breasts. Current study was also evaluated with a Computer Aided Detection (CAD) system. There are benign calcifications in both breasts. No significant masses, calcifications, or other findings are seen in either breast. There has been no significant interval change. IMPRESSION: There is no mammographic evidence of malignancy. A 1 year screening mammogram is recommended. This exam was interpreted at Station ID: [id number]. NOTE: For mammograms, a report in lay terms will be sent to the patient. Approximately 15% of breast malignancies will not be visualized mammographically. In the management of a palpable breast mass, a negative mammogram must not discourage biopsy of a clinically suspicious lesion. Electronically Signed By: Genaro frost/chely:05/15/2019 17:41:30 letter sent: Normal Exam ACR BI-RADS Category 2: Benign Finding(s) 3342F
== END ==
PROVIDERS: PCP Physician Assistant; Visit Provider Physician Assistant
DX: Z12.31 Encounter for screening mammogram for malignant neoplasm of breast (principal); Z80.3 Family history of malignant neoplasm of breast
CPT/HCPCS: 77063; 77067

== ENCOUNTER → 2019-06-19 12:54 | Outpatient (CLI) | payer MEDICARE, OTHER, SELFPAY ==
[2019-06-19 14:05] LABS: Alanine Aminotransferase 30 IU/L (9-52); Albumin 4.4 g/dL (3.5-5.0); Albumin Globulin Ratio 1.6 (1.0-2.8); Alkaline Phosphatase 120 U/L (38-126); Aspartate Aminotransferase 32 IU/L (14-36); Bilirubin Total 1.2 mg/dL (0.2-1.3); Bilirubin Unconjugated 1.2 mg/dL (0.0-1.1); Globulin 2.7 g/dL (1.7-4.1); HEMOLYSIS < 15 (0-50); Total Protein 7.1 g/dL (6.3-8.2)
== END ==
PROVIDERS: PCP Physician Assistant; Visit Provider Physician Assistant
DX: R74.8 Abnormal levels of other serum enzymes (principal)
CPT/HCPCS: 36415; 80076

== ENCOUNTER → 2019-06-28 15:28 | Outpatient (CLI) | payer MEDICARE, OTHER, SELFPAY ==
--- NOTE | 2019-06-28 | DI.RAD.S_ITS ---
PROCEDURE: XR FOOT RT MIN 3V INDICATIONS: PAIN IN JOINTS TECHNIQUE: 3 views of the foot were acquired. COMPARISON: None. FINDINGS: Bones: No fractures or dislocations. No suspicious bony lesions. Severe first MTP joint degeneration. Prominent plantar calcaneal spur. Hallux valgus appearance although weightbearing views of the more specific. No marginal lucencies Soft tissues: No tibiotalar joint effusion. Achilles tendon appears normal. IMPRESSION: Severe first MTP joint degeneration. Plantar calcaneal spur. Hallux valgus, although weightbearing views of the more specific. Dictated by: Ross Rivera M.D. on 06/28/2019 at 17:03 Approved by: Ross Rivera M.D. on 06/28/2019 at 17:04
--- NOTE | 2019-06-28 | DI.RAD.S_ITS ---
PROCEDURE: XR HAND LT MIN 3V INDICATIONS: PAIN IN JOINTS TECHNIQUE: 3 views of the hand(s) acquired. COMPARISON: None. FINDINGS: Bones: No fractures or dislocations. Carpal bones are normally aligned. No suspicious bony lesions. First CMC and triscaphe joint degeneration diffuse interphalangeal joint degeneration. No definite marginal lucencies. Soft tissues: No suspicious soft tissue calcifications. IMPRESSION: Left hand osteoarthritis as above. Dictated by: Ross Rivera M.D. on 06/28/2019 at 17:04 Approved by: Ross Rivera M.D. on 06/28/2019 at 17:06
--- NOTE | 2019-06-28 | DI.RAD.S_ITS ---
PROCEDURE: XR HAND RT MIN 3V INDICATIONS: PAIN IN JOINTS TECHNIQUE: 3 views of the hand(s) acquired. COMPARISON: None. FINDINGS: Bones: No fractures or dislocations. Carpal bones are normally aligned. No suspicious bony lesions. Diffuse interphalangeal joint degeneration and spurring. Marginal lucencies are seen at the third fourth and fifth MCP joints although technically age-indeterminate in the absence of comparison studies. First CMC and triscaphe joint degeneration. Possible additional small marginal lucencies at the DIP joints of the little and index finger, as well as the PIP joints of the middle, ring and little finger. Soft tissues: No suspicious soft tissue calcifications. IMPRESSION: Right hand osteoarthritis. Polyarticular marginal lucencies as detailed above raising the possibility of erosions although age-indeterminate. Dictated by: Ross Rivera M.D. on 06/28/2019 at 17:06 Approved by: Ross Rivera M.D. on 06/28/2019 at 17:09
--- NOTE | 2019-06-28 | DI.RAD.S_ITS ---
PROCEDURE: XR FOOT LT MIN 3V INDICATIONS: PAIN IN JOINTS TECHNIQUE: 3 views of the foot were acquired. COMPARISON: None. FINDINGS: Bones: No fractures or dislocations. No suspicious bony lesions. First MTP joint degeneration. Plantar calcaneal spur. Soft tissues: No tibiotalar joint effusion. Achilles tendon appears normal. IMPRESSION: First MTP joint degeneration. Plantar calcaneal spur. Dictated by: Ross Rivera M.D. on 06/28/2019 at 17:00 Approved by: Ross Rivera M.D. on 06/28/2019 at 17:01
== END ==
PROVIDERS: PCP Physician Assistant; Visit Provider Internal Medicine Rheumatology
DX: M25.542 Pain in joints of left hand (principal); M25.541 Pain in joints of right hand; M25.572 Pain in left ankle and joints of left foot; M25.571 Pain in right ankle and joints of right foot; M19.072 Primary osteoarthritis, left ankle and foot; M19.071 Primary osteoarthritis, right ankle and foot; M77.32 Calcaneal spur, left foot; M77.31 Calcaneal spur, right foot; M20.11 Hallux valgus (acquired), right foot; M18.0 Bilateral primary osteoarthritis of first carpometacarpal joints; M19.042 Primary osteoarthritis, left hand; M19.041 Primary osteoarthritis, right hand
CPT/HCPCS: 73130; 73630

== ENCOUNTER → 2020-01-30 16:16 | Outpatient (CLI) | payer MEDICARE, OTHER, SELFPAY ==
[2020-01-30 17:01] LABS: Add Manual Diff / Slide Review NO; Basophils Absolute Auto 100 /uL (0-100); Basophils Percent Auto 0.9 % (0-2); Eosinophils Absolute Auto 200 /uL (0-450); Eosinophils Percent Auto 3.7 % (2-4); Hemoglobin 15.9 g/dL (12.0-16.0); Lymphocytes Absolute Auto 2900 /uL (1100-4500); Lymphocytes Percent Auto 50.2 % (25-40); Mean Corpuscular HGB Conc 35.3 % (30-36); Mean Corpuscular Hemoglobin 31.1 PG (26-34); Mean Corpuscular Volume 88.1 fL (80-100); Monocytes Absolute Auto 300 /uL (0-900); Monocytes Percent Auto 4.6 % (3-14); Neutrophils Absolute Auto 2300 /uL (1500-7000); Neutrophils Percent Auto 40.6 % (50-75); Platelet Count 165 X10^3/uL (150-400); Red Cell Distribution Width 13.6 % (11.6-14.8); White Blood Cell Count 5.8 X10^3/uL (4.5-11.0)
[2020-01-30 17:17] LABS: Alanine Aminotransferase 30 IU/L (<35); Albumin 4.7 g/dL (3.5-5.0); Albumin Globulin Ratio 1.5 (1.0-2.8); Alkaline Phosphatase 139 U/L (38-126); Aspartate Aminotransferase 36 IU/L (14-36); BUN Creatinine Ratio 39.7 (6-22); Bilirubin Total 0.9 mg/dL (0.2-1.3); Blood Urea Nitrogen 27 mg/dL (7-17); Calcium 9.7 mg/dL (8.4-10.2); Carbon Dioxide 28 mmol/L (22-32); Chloride 102 mmol/L (98-107); Estimated Glomerular Filt Rate > 60.0 mL/min (>60); Globulin 3.1 g/dL (1.7-4.1); Glucose 153 mg/dL (80-110); HEMOLYSIS < 15 (0-50); Potassium 3.8 mmol/L (3.4-5.1); Sodium 140 mmol/L (137-145); Total Protein 7.8 g/dL (6.3-8.2)
== END ==
PROVIDERS: Referring Provider Family Medicine; Visit Provider Family Medicine
DX: E79.0 Hyperuricemia without signs of inflammatory arthritis and tophaceous disease (principal); E80.4 Gilbert syndrome; M25.50 Pain in unspecified joint; R53.83 Other fatigue
CPT/HCPCS: 36415; 80053; 85025

== ENCOUNTER → 2020-03-07 14:44 | Outpatient (CLI) | payer MEDICARE, OTHER, SELFPAY ==
--- NOTE | 2020-03-07 14:49 | DI.RAD.S_ITS ---
PROCEDURE: XR LUMBAR SPINE 2-3V INDICATIONS: right hip pain, toe paresthesia both feet TECHNIQUE: 3 views of the lumbar spine were acquired. COMPARISON: [facility], , XR LUMBAR SPINE 2-3V, 11/17/2018, 12:19. FINDINGS: Bones: 5 [id number] vertebrae are present. Trace multilevel retrolisthesis. Trace spondylolisthesis L4-L5. Multilevel disc degeneration, severe at the L5-S1 level. Moderate L4-L5 and L5-S1 facet joint arthropathy. No vertebral body compression fractures. No suspicious bony lesions. Soft tissues: Overlying bowel gas pattern is normal. No suspicious soft tissue calcifications. IMPRESSION: Multilevel spondylosis similar to prior exam dated 11/17/18. Dictated by: Marcellus Espitia [facility] Interpreted: Blanca Berger MD on 03/07/2020 at 15:57 Approved by: Blanca Berger MD, PhD on 03/07/2020 at 16:30
--- NOTE | 2020-03-07 14:49 | DI.RAD.S_ITS ---
PROCEDURE: XR HIP W PEL IF DONE RT 2V INDICATIONS: right hip pain, toe paresthesia both feet TECHNIQUE: AP pelvis with lateral view(s) of the right hip(s). COMPARISON: [facility], , XR PELVIS WITH LATERAL HIP, 10/09/2018, 11:08. FINDINGS: Bones: No fractures or dislocations. Pelvic ring appears intact. No suspicious bony lesions. Soft tissues: The visualized bowel gas pattern is normal. No suspicious soft tissue calcifications. Mild joint narrowing with periarticular osteophyte formation of the hip joints bilaterally. Degenerative disc and facet disease involves the inferior lumbar spine. IMPRESSION: Mild symmetric hip joint degeneration. Dictated by: Marcellus MICHAELA Interpreted: Blanca Berger MD on 03/07/2020 at 15:56 Approved by: Blanca Berger MD, PhD on 03/07/2020 at 16:29
== END ==
PROVIDERS: PCP Family Medicine; Referring Provider Nurse Practitioner Family; Visit Provider Nurse Practitioner Family
DX: M25.551 Pain in right hip (principal); M16.0 Bilateral primary osteoarthritis of hip; M47.816 Spondylosis without myelopathy or radiculopathy, lumbar region; M47.817 Spondylosis without myelopathy or radiculopathy, lumbosacral region; R20.2 Paresthesia of skin
CPT/HCPCS: 72100; 73502

== ENCOUNTER → 2020-03-27 08:11 | Outpatient (CLI) | payer MEDICARE, OTHER, SELFPAY ==
[2020-03-27 09:54] LABS: Hemoglobin A1C% w Est Avg Glu 4.9 % (4.0-6.0)
[2020-03-27 09:56] LABS: Add Manual Diff / Slide Review NO; Basophils Absolute Auto 100 /uL (0-100); Basophils Percent Auto 1.2 % (0-2); Eosinophils Absolute Auto 300 /uL (0-450); Eosinophils Percent Auto 5.6 % (2-4); Hematocrit 43.5 % (36-46); Hemoglobin 15.7 g/dL (12.0-16.0); Lymphocytes Absolute Auto 1900 /uL (1100-4500); Mean Corpuscular HGB Conc 36.1 % (30-36); Mean Corpuscular Hemoglobin 31.5 PG (26-34); Mean Corpuscular Volume 87.3 fL (80-100); Monocytes Absolute Auto 300 /uL (0-900); Monocytes Percent Auto 5.8 % (3-14); Neutrophils Absolute Auto 2100 /uL (1500-7000); Neutrophils Percent Auto 45.4 % (50-75); Platelet Count 185 X10^3/uL (150-400); Red Blood Cell Count 4.98 X10^6/uL (4.0-5.2); Red Cell Distribution Width 13.3 % (11.6-14.8); White Blood Cell Count 4.6 X10^3/uL (4.5-11.0)
[2020-03-27 10:06] LABS: Alanine Aminotransferase 23 IU/L (<35); Albumin 4.1 g/dL (3.5-5.0); Albumin Globulin Ratio 1.5 (1.0-2.8); Alkaline Phosphatase 119 U/L (38-126); Aspartate Aminotransferase 33 IU/L (14-36); Bilirubin Total 1.2 mg/dL (0.2-1.3); Blood Urea Nitrogen 24 mg/dL (7-17); Calcium 9.3 mg/dL (8.4-10.2); Carbon Dioxide 30 mmol/L (22-32); Chloride 103 mmol/L (98-107); Cholesterol 190 mg/dL (140-199); Estimated Glomerular Filt Rate > 60.0 mL/min (>60); Globulin 2.8 g/dL (1.7-4.1); Glucose 89 mg/dL (80-110); HDL Cholesterol 38 mg/dL (40-60); HEMOLYSIS < 15 (0-50); LDL Cholesterol Calculated 121 mg/dL (<100); Potassium 3.8 mmol/L (3.4-5.1); Sodium 139 mmol/L (137-145); Total Protein 6.9 g/dL (6.3-8.2); Triglycerides 157 mg/dL (35-150)
[2020-03-27 10:13] LABS: Free T3, Triiodothyronine Free 3.34 pg/mL (2.77-5.27); Free T4, Direct Thyroxine 1.19 ng/dL (0.78-2.19)
[2020-03-27 10:26] LABS: Vitamin D 25 Hydroxy (D3) 42.5 ng/mL (30.0-100.0)
[2020-03-27 10:27] LABS: Thyroid Stimulating Hormone 1.74 uIU/mL (0.47-4.68)
== END ==
PROVIDERS: PCP Family Medicine; Referring Provider Family Medicine; Visit Provider Family Medicine
DX: Z13.220 Encounter for screening for lipoid disorders (principal); E04.1 Nontoxic single thyroid nodule; E55.9 Vitamin D deficiency, unspecified; E80.4 Gilbert syndrome; K31.84 Gastroparesis; R73.9 Hyperglycemia, unspecified; E78.5 Hyperlipidemia, unspecified
CPT/HCPCS: 36415; 80053; 80061; 82306; 83036; 84439; 84443; 84481; 85025

== ENCOUNTER → 2020-04-04 12:05 | Outpatient (CLI) | payer MEDICARE, OTHER, SELFPAY ==
--- NOTE | 2020-04-04 | DI.MRI.S_ITS ---
PROCEDURE: MR LUMBAR SPINE WO CON INDICATIONS: Radiculopathy, lumbar region TECHNIQUE: Noncontrast sagittal T1 spin echo and T2 fast echo, sagittal STIR, axial T1 and T2 fast spin echo through the lumbar spine. In cases with scoliosis, additional coronal T2 fast spin echo may be performed. COMPARISON: [facility], , MR LUMBAR SPINE WO CON, 11/25/2018, 10:00. FINDINGS: Image quality: Excellent. Alignment and Curvature: 5 lumbar type vertebral bodies are present by plain film. There is mild grade 1 retrolisthesis of L3 on L4 and mild grade 1 anterolisthesis of L4 on L5. Bone Marrow: Marrow is of normal overall signal. No acute vertebral body compression fractures. There is mild reactive signal within the endplates adjacent to the L2-L3, L3-L4, L4-L5, and L5-S1 intervertebral discs. Spinal Cord: Conus medullaris terminates at the lower L1 level. Visualized cord demonstrates normal signal and size. Paraspinous Soft Tissues: No paravertebral masses. L1-L2: Normal appearance. L2-L3: Mild disc desiccation and diffuse disc bulge. Mild facet and ligamentum flavum hypertrophy. Mild canal stenosis. Mild right greater than left foraminal stenosis. No change. L3-L4: Mild disc height loss and desiccation. Mild diffuse disc bulge. Mild facet and ligament flavum hypertrophy. Mild canal stenosis. Mild bilateral foraminal stenosis. No change. L4-L5: Mild disc desiccation and diffuse disc bulge. Moderate facet hypertrophy bilaterally. Mild ligamentum hypertrophy. Mild canal stenosis. Mild bilateral foraminal stenosis. No change. L5-S1: Moderate disc height loss and desiccation. Mild diffuse disc bulge/osteophyte. Mild bilateral facet hypertrophy. Mild canal stenosis. Mild bilateral foraminal stenosis. No change. IMPRESSION: 1. Multilevel degenerative disc and facet disease, as well as ligamentum flavum hypertrophy and epidural lipomatosis, causing mild multilevel canal and foraminal stenoses. No neural impingement. Dictated by: Sabien Sun M.D. on 04/04/2020 at 14:44 Approved by: Sabine Sun M.D. on 04/04/2020 at 14:49
== END ==
PROVIDERS: PCP Family Medicine; Referring Provider Physical Medicine & Rehabilitation; Visit Provider Physical Medicine & Rehabilitation
DX: M51.16 Intervertebral disc disorders with radiculopathy, lumbar region (principal); M48.061 Spinal stenosis, lumbar region without neurogenic claudication; M48.07 Spinal stenosis, lumbosacral region; E88.2 Lipomatosis, not elsewhere classified
CPT/HCPCS: 72148

== ENCOUNTER → 2020-04-21 08:52 | Outpatient (CLI) | payer MEDICARE, OTHER, SELFPAY ==
[2020-04-21 09:37] LABS: Bacteria Urine None Seen; RBC Urine None Seen (0-5/HPF); WBC Urine None Seen (0-5/HPF)
[2020-04-21 09:48] LABS: Add Manual Diff / Slide Review NO; Basophils Absolute Auto 100 /uL (0-100); Basophils Percent Auto 1.3 % (0-2); Eosinophils Absolute Auto 300 /uL (0-450); Eosinophils Percent Auto 5.5 % (2-4); Hematocrit 44.7 % (36-46); Lymphocytes Absolute Auto 1800 /uL (1100-4500); Lymphocytes Percent Auto 37.4 % (25-40); Mean Corpuscular HGB Conc 35.7 % (30-36); Mean Corpuscular Hemoglobin 31.5 PG (26-34); Mean Corpuscular Volume 88.1 fL (80-100); Monocytes Absolute Auto 300 /uL (0-900); Neutrophils Absolute Auto 2300 /uL (1500-7000); Neutrophils Percent Auto 49.8 % (50-75); Platelet Count 169 X10^3/uL (150-400); Red Blood Cell Count 5.07 X10^6/uL (4.0-5.2); Red Cell Distribution Width 13.1 % (11.6-14.8); White Blood Cell Count 4.7 X10^3/uL (4.5-11.0)
[2020-04-21 09:52] LABS: Appearance Urine UA CLEAR; Bilirubin Urine UA NEGATIVE (NEGATIVE); Color Urine UA YELLOW; Glucose Urine UA NEGATIVE (Negative); Ketones Urine UA NEGATIVE (NEGATIVE); Leukocyte Esterase Urine UA NEGATIVE (NEGATIVE); Nitrite Urine UA NEGATIVE (Negative); Occult Blood Urine UA NEGATIVE (Negative); Protein Urine UA NEGATIVE (Negative); Specific Gravity Urine UA <=1.005 (1.000-1.035); Urobilinogen Urine UA 0.2 E.U./dL (0.2)
[2020-04-21 09:54] LABS: pH Urine UA 6.5 (4.5-8.0)
[2020-04-21 10:01] LABS: Alanine Aminotransferase 34 IU/L (<35); Albumin 4.5 g/dL (3.5-5.0); Albumin Globulin Ratio 1.6 (1.0-2.8); Alkaline Phosphatase 120 U/L (38-126); Aspartate Aminotransferase 34 IU/L (14-36); BUN Creatinine Ratio 36.9 (6-22); Bilirubin Total 1.3 mg/dL (0.2-1.3); Blood Urea Nitrogen 24 mg/dL (7-17); Calcium 9.7 mg/dL (8.4-10.2); Carbon Dioxide 29 mmol/L (22-32); Chloride 105 mmol/L (98-107); Estimated Glomerular Filt Rate > 60.0 mL/min (>60); Globulin 2.8 g/dL (1.7-4.1); Glucose 89 mg/dL (80-110); HEMOLYSIS < 15 (0-50); Potassium 3.9 mmol/L (3.4-5.1); Sodium 140 mmol/L (137-145); Total Protein 7.3 g/dL (6.3-8.2)
[2020-04-21 10:06] LABS: Culture Indicated Urine Cult Not Indicated; Urine Comments Microscopic Normal
[2020-04-21 17:39] LABS: HIV 1 & 2 Ab/Ag 4th Gen Combo NEGATIVE (NEGATIVE)
[2020-04-23 13:46] LABS: QuantiFERON Mitogen Value 5.09 IU/mL (.); QuantiFERON Nil Value 0.19 IU/mL (.); QuantiFERON TB Gold Plus Negative (Negative); QuantiFERON TB1 Ag Value 0.18 IU/mL (.); QuantiFERON TB2 Ag Value 0.14 IU/mL (.)
== END ==
PROVIDERS: PCP Family Medicine; Referring Provider Family Medicine; Visit Provider Family Medicine
DX: R61 Generalized hyperhidrosis (principal)
CPT/HCPCS: 36415; 80053; 81001; 85025; 86480; 87040; 87389

== ENCOUNTER → 2020-04-26 10:30 | Outpatient (CLI) | payer MEDICARE, OTHER, SELFPAY ==
[2020-04-28 21:01] LABS: COVID19 Sendout Not Detected (Not Detect)
== END ==
PROVIDERS: PCP Family Medicine; Visit Provider Physician Assistant
DX: Z11.59 Encounter for screening for other viral diseases (principal)
CPT/HCPCS: 87635

== ENCOUNTER 2020-04-29 07:58 | Day surgery (SDC) | payer MEDICARE, OTHER, SELFPAY ==
[2020-04-29] MEDS: CATARACT EYE COMPOUND (10 DROPS/SYRINGE) 3 DROPS EYE-OP (08:37)
[2020-04-29] MEDS: PROPARACAINE 0.5% OPHTH SOL 2 DROPS EYE-OP (08:37)
[2020-04-29 08:38] VITALS: BP 148/83; PULSE 75; RESP 16; TEMP 36.4; O2SAT 100; BMI 22.5
--- NOTE | 2020-04-29 09:40 | P.OP_ITS ---
Operative Date/Time/Diagnoses Pre-op diagnosis: Nuclear cataract right eye Procedure & Clinicians Procedure: Cataract Surgery Same procedure as scheduled: Yes Surgeon: Joshua Moreno Anesthesia Type: MAC +/- and Sedation Operative Notes Procedure in detail: Patient brought to the operating suite. Tetracaine drops placed in the right eye. Marking instrument was used to sneha the vertical and horizontal meridians. Patient was prepped and draped in sterile manner. Wire lid speculum was placed in the eye. Marking instrument was used to sneha 45 degree meridian. Betadine drops were placed on the eye. This was irrigated. Lidocaine jelly was placed on the eye. A paracentesis port was created with a side-port blade. 0.1 mL 1% preservative free lidocaine was injected into the anterior chamber. The anterior chamber was deepened with viscoelastic. 2.6 mm keratome was used to create a temporal clear corneal incision. Cystotome and Utr terra forceps were used to create continuous tear capsulorrhexis. Balanced salt solution was used to hydro dissect the nucleus. The phacoemulsification handpiece was inserted and the nucleus was removed using the stop and chop technique. The irrigation aspiration handpiece was inserted and the remaining cortex was removed. Anterior chamber was deepened with viscoelastic. An Belle [id number] intraocular lens with a power of 16.0 was injected into the capsular bag. Irrigation aspiration handpiece was inserted and the remaining viscoelastic was removed. The lens was rotated to the 45 degree meridian. Incision was hydrated with balanced salt solution and found to be leak free with pressure with Weck- Yoko sponges. 0.1 mL Vigamox injected anterior chamber. 0.3 mL Kenalog 10 mg was injected subconjunctivally. Lid speculum was removed. The patient left the operating room in excellent condition. Complications: none Post-operative Condition: stable Disposition: same day surgery
--- NOTE | 2020-04-29 09:40 | PM.PREOP ---
Pre-operative Note Interval Note History & Physical reviewed/Exam performed by Physician: Yes Changes to H&P: No
[2020-04-29] MEDS: LIDOCAINE JELLY 2% 5 ML 1 APPLIC TOP (10:08)
[2020-04-29] MEDS: TETRACAINE 0.5% OPHTH DROPS 4 ML 2 DROPS EYE-OP (10:08)
[2020-04-29] MEDS: CHONDROIDTIN/SOD HYALURONATE 1.05 ML SYRINGE INTRAOCULA (10:08)
[2020-04-29] MEDS: TRIAMCINOLONE 50 MG/5 ML VIAL INJ (10:09)
[2020-04-29] MEDS: MOXIFLOXACIN INJ 5 MG/ML VIAL EYE-OP (10:09)
[2020-04-29] MEDS: BALANCED SALT IRRIG SOLN NO.2 500 ML, EPINEPHrine 1 MG IRR (10:10)
[2020-04-29] MEDS: PHENYLEPHRINE/LIDOCAINE VIAL (OR) 0.2 ML EYE-OP (10:10)
[2020-04-29 10:20] VITALS: BP 149/77; PULSE 71; RESP 16; TEMP 36.5
--- NOTE | 2020-04-29 12:12 | SUR.PHASEII ---
Left when ready and left in stable condition.
== END 2020-04-29 11:00 | disposition home or self-care (01) ==
PROVIDERS: PCP Family Medicine; Referring Provider Family Medicine; Visit Provider Ophthalmology
PROC: (CPT 66984; principal; 2020-04-29 09:45)
DX: H25.11 Age-related nuclear cataract, right eye (principal); K21.9 Gastro-esophageal reflux disease without esophagitis; G47.33 Obstructive sleep apnea (adult) (pediatric)
CPT/HCPCS: 66984; J0171; J2250; J3010; J3301; V2787

== ENCOUNTER → 2020-05-10 15:17 | Outpatient (CLI) | payer MEDICARE, OTHER, SELFPAY ==
[2020-05-13 05:39] LABS: COVID19 Sendout Not Detected (Not Detected)
== END ==
PROVIDERS: PCP Family Medicine; Visit Provider Physician Assistant
DX: Z11.59 Encounter for screening for other viral diseases (principal)
CPT/HCPCS: 87635

== ENCOUNTER 2020-05-13 08:23 | Day surgery (SDC) | payer MEDICARE, OTHER, SELFPAY ==
[2020-05-13] MEDS: PROPARACAINE 0.5% OPHTH SOL 2 DROPS EYE-OP (09:21)
[2020-05-13] MEDS: CATARACT EYE COMPOUND (10 DROPS/SYRINGE) 3 DROPS EYE-OP (09:22)
[2020-05-13 09:23] VITALS: TEMP 36.9; BMI 22.6
[2020-05-13 09:30] VITALS: BP 147/75; PULSE 70; RESP 16; O2SAT 100
--- NOTE | 2020-05-13 10:10 | P.OP_ITS ---
Operative Date/Time/Diagnoses Pre-op diagnosis: Nuclear Cataract Left eye Post-op diagnosis: same Procedure & Clinicians Same procedure as scheduled: Yes Surgeon: Joshua Moreno Anesthesia Type: MAC +/- and Sedation Operative Notes Procedure in detail: Patient brought to the operating suite. Tetracaine drops placed in the left eye. marking instrument was used to sneha the vertical and horizontal merdiains. Patient was prepped and draped in sterile manner. Wire lid speculum was placed in the eye. Marking instrument was used to sneha the 120 degree meridian. Betadine drops were placed on the eye. This was irrigated. Lidocaine jelly was placed on the eye. A paracentesis port was created with a side-port blade. 0.1 mL 1% preservative free lidocaine was injected into the anterior chamber. The anterior chamber was deepened with viscoelastic. 2.6 mm keratome was used to create a temporal clear corneal incision. Cystotome and Utrata forceps were used to create continuous tear capsulorrhexis. Balanced salt solution was used to hydro dissect the nucleus. The phacoemulsification handpiece was inserted and the nucleus was removed using the stop and chop te chnique. The irrigation aspiration handpiece was inserted and the remaining cortex was removed. Anterior chamber was deepened with viscoelastic. An Belle [id number] intraocular lens with a power of 15.5 was injected into the capsular bag. Irrigation aspiration handpiece was inserted and the remaining viscoelastic was removed. The lens was rotated to the 120 degree meridian. Incision was hydrated with balanced salt solution and found to be leak free with pressure with Weck-Yoko sponges. 0.1 mL Vigamox injected anterior chamber. 0.3 mL Kenalog 10 mg was injected subconjunctivally. Lid speculum was removed. The patient left the operating room in excellent condition. Complications: none Post-operative Condition: stable Disposition: same day surgery
--- NOTE | 2020-05-13 10:10 | PM.PREOP ---
Pre-operative Note Interval Note History & Physical reviewed/Exam performed by Physician: Yes Changes to H&P: No
--- NOTE | 2020-05-13 10:24 | SUR.OPER ---
Supine on eye stretcher, head on extension cradle secured with tape. Arms tucked at sides with blanket. Pillow under knees.
[2020-05-13] MEDS: CHONDROIDTIN/SOD HYALURONATE 1.05 ML SYRINGE INTRAOCULA (10:29)
[2020-05-13] MEDS: LIDOCAINE JELLY 2% 5 ML 1 APPLIC TOP (10:29)
[2020-05-13] MEDS: PHENYLEPHRINE/LIDOCAINE VIAL (OR) 0.2 ML EYE-OP (10:30)
[2020-05-13] MEDS: TETRACAINE 0.5% OPHTH DROPS 4 ML 2 DROPS EYE-OP (10:30)
[2020-05-13] MEDS: MOXIFLOXACIN INJ 5 MG/ML VIAL EYE-OP (10:30)
[2020-05-13] MEDS: BALANCED SALT IRRIG SOLN NO.2 500 ML, EPINEPHrine 1 MG IRR (10:31)
[2020-05-13] MEDS: TRIAMCINOLONE 50 MG/5 ML VIAL INJ (10:31)
[2020-05-13 12:42] VITALS: BP 137/72; PULSE 63; RESP 16; TEMP 36.4; O2SAT 97
--- NOTE | 2020-05-13 12:46 | SUR.PHASEII ---
called at 1050, to be here in 10-15 minutes, called at 1100, stated he would be delayed by 10 minutes, pt ok to wait outside with pt. She had her snack of crackers and beverage after the proceedure and stated. I feel great Left unit in stable condition.
== END 2020-05-13 11:08 | disposition home or self-care (01) ==
PROVIDERS: PCP Family Medicine; Referring Provider Family Medicine; Visit Provider Ophthalmology
PROC: (CPT 66984; principal; 2020-05-13 10:15)
DX: H25.12 Age-related nuclear cataract, left eye (principal); K21.9 Gastro-esophageal reflux disease without esophagitis; J45.909 Unspecified asthma, uncomplicated
CPT/HCPCS: 66984; J0171; J2250; J3010; J3301; V2787

== ENCOUNTER → 2020-05-16 15:35 | Outpatient (CLI) | payer MEDICARE, OTHER, SELFPAY ==
--- NOTE | 2020-05-16 15:37 | DI.MG.S_ITS ---
BILATERAL DIGITAL SCREENING MAMMOGRAM 3D/2D WITH CAD: 05/16/2020 CLINICAL: Routine screening. Family history of breast cancer. Comparison is made to exams dated: 05/15/2019 mammogram, 04/27/2018 mammogram, and 04/14/2017 mammogram - [facility]. There are scattered fibroglandular elements in both breasts. Current study was also evaluated with a Computer Aided Detection (CAD) system. There are benign calcifications in both breasts. No significant masses, calcifications, or other findings are seen in either breast. There has been no significant interval change. IMPRESSION: BENIGN There is no mammographic evidence of malignancy. A 1 year screening mammogram is recommended. This exam was interpreted at Station ID: [id number]. NOTE: For mammograms, a report in lay terms will be sent to the patient. Approximately 15% of breast malignancies will not be visualized mammographically. In the management of a palpable breast mass, a negative mammogram must not discourage biopsy of a clinically suspicious lesion. Electronically Signed By: Gerson Angelse M.D., jr/chely:05/16/2020 16:57:32 letter sent: Normal Exam ACR BI-RADS Category 2: Benign Finding(s) 3342F
== END ==
PROVIDERS: PCP Family Medicine; Referring Provider Family Medicine; Visit Provider Family Medicine
DX: Z12.31 Encounter for screening mammogram for malignant neoplasm of breast (principal); Z80.3 Family history of malignant neoplasm of breast
CPT/HCPCS: 77063; 77067

== ENCOUNTER → 2020-06-23 09:36 | Outpatient (CLI) | payer MEDICARE, OTHER, SELFPAY | PROVIDERS: PCP Family Medicine; Visit Provider Registered Nurse | DX: L03.90 Cellulitis, unspecified (principal) | CPT/HCPCS: 87070; 87075; 87077; 87205 ==

== ENCOUNTER 2020-09-01 12:45 | Outpatient (RCR) | payer MEDICARE, OTHER, SELFPAY ==
--- NOTE | 2020-08-04 16:36 | PT.OIE ---
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) Eczema (Chronic) Gastric polyps (Resolved 04/2014) Gastroparesis (Chronic) GERD (gastroesophageal reflux disease) (Chronic) History of Lyme disease (Resolved) Multinodular goiter (Chronic ~1999) Paresthesia of both feet (Acute) Pelvic somatic dysfunction (Acute) Physical exam, annual (Acute) Rheumatoid arthritis (Acute) Rheumatoid arthritis (Acute) Right hip pain (Acute) Sacral region somatic dysfunction (Acute) Segmental and somatic dysfunction of rib cage (Acute) Sleep apnea (Chronic) Somatic dysfunction of abdominal region (Acute) Somatic dysfunction of right lower extremity (Acute) Stiff neck (Acute) Stress incontinence in female (Acute) SVT (supraventricular tachycardia) (Chronic 02/2016) Thoracic region somatic dysfunction (Acute) Thyroid nodule (Acute) Upper extremity somatic dysfunction (Acute) Vitamin D deficiency (Acute) Past Surgical History (Last Reviewed 07/01/20 @ 13:40 by Isabella Marsh MD) History of tonsillectomy (Acute 08/09/19) Visit Care Team Role Provider Type Jose Bolanos DO Family Provider Physician Primary Care Provider Specialty: Family Practice Address: [address] [place] [id number] Email: Isabella Marsh MD Attending Provider Physician Referring Provider 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 [employer] Address: [address] [place] [address], [id number] Email: Physical Therapy Initial Evaluation PT-OP-A Visit Information Start: 08/04/20 07:54 Freq: Status: Active Protocol: Document 08/04/20 14:15 AMB (Rec: 08/05/20 09:02 AMB [id number]) Out-Patient Physical Therapy Visit Information Visit Information Visit Type Initial Evaluation Visit Start Time 14:15 Visit Stop Time 15:10 Total Visit Minutes 55 Visit Number 1 PT-OP-B Current Condition Start: 08/04/20 07:54 Freq: Status: Active Protocol: Document 08/05/20 14:15 AMB (Rec: 08/07/20 10:56 AMB [email or web address]) Current Condition History of Current Condition Onset Date years ago Current Complaints urinary incontinence History of Current Condition Ashlie's biggest issue is moving from sit to stand after sitting for about 2 hours and then getting a sudden urge that she needs to urinate. She states she leaks enough to wet her underwear. She does drink a lot of fluid due to her autoimmune disease. She states that she usually urinates for at least 5 seconds. She denies any fecal incontinence. She does also notice leaking with cough, sneeze, lift. She has had one of a baby with Prior Functional Status Baseline Function- ADL's Independent Baseline Function- Mobility Independent Current Functional Impairments (Reported) Functional Limitations- ADL's difficulty getting to toilet in time if holding urine more than 2 hours, leak with lift cough sneeze Personal Factors Other Personal Factors That May Effect Rheumatoid arthritis, history Therapy/Recovery of bronchitis, previous history of contstipation (not currently) PT-OP-C Subjective Start: 08/04/20 07:54 Freq: Status: Active Protocol: Document 08/04/20 14:15 AMB (Rec: 08/08/20 16:36 AMB [email or web address]) Patient Questionnaires Pelvic Pain and Urgency/Frequency Patient Symptom Scale Pelvic Pain Score 13 PT-OP-I Pelvic Floor Start: 08/04/20 07:54 Freq: Status: Active Protocol: Document 08/04/20 14:15 AMB (Rec: 08/04/20 15:25 AMB [email or web address]) Pelvic Floor Assessment Urine Pelvic Floor Surgery No Urinary Symptoms Urge Sensation,Prolapse, Dribbling After Urination, Incomplete Emptying Leakage Size Medium Leakage Cause Cough,Lifting,Sneeze,Urge Other Leakage Causes sit to stand Leaks Per Day 9/week Voiding Frequency every 2 hours Nocturia 1 Bowel Other Bowel Symptoms previous constipation currently on miralax Prolapse Cystocele Grade 2 Perineal Descent Resting Present Bearing Present Contraction Ability Voluntary Contraction Weak Voluntary Relaxation Moderate Manual Muscle Testing Left 2 Manual Muscle Testing Right 2 Manual Muscle Testing Anterior 2 Manual Muscle Testing Posterior 3 Muscle Endurance (Seconds) 5 Number of Quick Contractions In 10 4 Seconds PT-OP-T Assessment and Plan Start: 08/04/20 07:54 Freq: Status: Active Protocol: Document 08/04/20 14:15 AMB (Rec: 08/08/20 16:36 AMB [email or web address]) Physical Therapy Assessment Rehab Potential Rehabilitation Potential Excellent Evaluation Complexity Number of Personal Factors/Comorbidities 1-2 Number of Body Systems Impaired 1-2 Clinical Presentation at Evaluation Stable Impairments Impairments Functional Activities, Functional Mobility,Strength Goals Two Impairment incontinence Short Term Goal (STG) Ashlie will contract her pelvic floor while lifting to avoid leaking while lifting 10 pounds from the floor to waist height. STG Duration 4 weeks Skilled Nursing Goal (LTG) Ashlie will move from sit to stand without leaking urine. LTG Duration 8 weeks One Impairment Pelvic floor strength Short Term Goal (STG) Ashlie will improve her pelvic floor strength to 4/5. STG Duration 4 weeks Assessment Summary Assessment Ashlie attends physical therapy with pelvic floor weakness and stress incontinence with what sounds like a little bit of urgency as well. She will benefit from physical therapy to improve her ability to contract her pelvic floor and avoid urinary leaks. Physical Therapy Plan Frequency and Duration Frequency of Treatment 1x/Week Duration of Treatment 8 weeks Plan of Care Start Date 08/04/20 Plan of Care End Date 09/29/20 Therapeutic Interventions Therapeutic Interventions Home Exercise Program,Manual Therapy,Neuromuscular Re- education,Self-Care/Home Management,Therapeutic Activities,Therapeutic Exercises Modalities Biofeedback,Electric Stimulation Next Visit Focus/Plan Next Note Type Treatment Note
--- NOTE | 2020-08-04 16:37 | PT.OPPOC ---
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 Address: [address] [place] [address], [phone] Email: Plan Of Care PT-OP-T Assessment and Plan Start: 08/04/20 07:54 Freq: Status: Active Protocol: Document 08/04/20 14:15 AMB (Rec: 08/08/20 16:36 AMB [email or web address]) Physical Therapy Assessment Rehab Potential Rehabilitation Potential Excellent Evaluation Complexity Number of Personal Factors/Comorbidities 1-2 Number of Body Systems Impaired 1-2 Clinical Presentation at Evaluation Stable Impairments Impairments Functional Activities, Functional Mobility,Strength Goals Two Impairment incontinence Short Term Goal (STG) Ashlie will contract her pelvic floor while lifting to avoid leaking while lifting 10 pounds from the floor to waist height. STG Duration 4 weeks Nursing Home Goal (LTG) Ashlie will move from sit to stand without leaking urine. LTG Duration 8 weeks One Impairment Pelvic floor strength Short Term Goal (STG) Ashlie will improve her pelvic floor strength to 4/5. STG Duration 4 weeks Assessment Summary Assessment Ashlie attends physical therapy with pelvic floor weakness and stress incontinence with what sounds like a little bit of urgency as well. She will benefit from physical therapy to improve her ability to contract her pelvic floor and avoid urinary leaks. Physical Therapy Plan Frequency and Duration Frequency of Treatment 1x/Week Duration of Treatment 8 weeks Plan of Care Start Date 08/04/20 Plan of Care End Date 09/29/20 Therapeutic Interventions Therapeutic Interventions Home Exercise Program,Manual Therapy,Neuromuscular Re- education,Self-Care/Home Management,Therapeutic Activities,Therapeutic Exercises Modalities Biofeedback,Electric Stimulation Next Visit Focus/Plan Next Note Type Treatment Note Plan of Care Dates Plan of Care Start Date 08/04/20 Plan of Care End Date 09/29/20 Electronically Signed by: Emilie Steen, PT 08/08/20 [id number] Please Sign and Return: I have reviewed this Plan of Care and certify that the skilled therapy services above are required to meet the patient?s needs. Physician Signature Date Printed Name and Credentials Clinical Instructor Signature Printed Name and Credentials
--- NOTE | 2020-08-18 15:19 | PT.OTN ---
Current Diagnoses Segmental and somatic dysfunction of pelvic region (08/18/20) Stress incontinence (female) (male) (08/18/20) Physical Therapy Treatment Note PT-OP-A Visit Information Start: 08/04/20 07:54 Freq: Status: Active Protocol: Document 08/18/20 13:31 AMB (Rec: 08/18/20 13:43 AMB [id number]) Out-Patient Physical Therapy Visit Information Visit Information Visit Type Treatment Note Visit Start Time 13:30 Visit Stop Time 14:15 Total Visit Minutes 45 Visit Number 2 PT-OP-B Current Condition Start: 08/04/20 07:54 Freq: Status: Active Protocol: Document 08/05/20 14:15 AMB (Rec: 08/07/20 10:56 AMB [email or web address]) Current Condition History of Current Condition Onset Date years ago Current Complaints urinary incontinence History of Current Condition Ashlie's biggest issue is moving from sit to stand after sitting for about 2 hours and then getting a sudden urge that she needs to urinate. She states she leaks enough to wet her underwear. She does drink a lot of fluid due to her autoimmune disease. She states that she usually urinates for at least 5 seconds. She denies any fecal incontinence. She does also notice leaking with cough, sneeze, lift. She has had one of a baby with Prior Functional Status Baseline Function- ADL's Independent Baseline Function- Mobility Independent Current Functional Impairments (Reported) Functional Limitations- ADL's difficulty getting to toilet in time if holding urine more than 2 hours, leak with lift cough sneeze Personal Factors Other Personal Factors That May Effect Rheumatoid arthritis, history Therapy/Recovery of bronchitis, previous history of contstipation (not currently) PT-OP-C Subjective Start: 08/04/20 07:54 Freq: Status: Active Protocol: Document 08/18/20 13:31 AMB (Rec: 08/18/20 13:43 AMB [id number]) OP-PT Subjective Patient Comments Patient Comments Ashlie attends PT with 3 days of measurements of how much urine she voided each time she went to the bathroom. The first day she noticed a few voids with 4oz only, but used the kegels and reducing urge techniques and then noticed that she is able to avoid small voids keeping it to at least 9oz, she is no longer rushing to the bathroom. PT-OP-I Pelvic Floor Start: 08/04/20 07:54 Freq: Status: Active Protocol: Document 08/04/20 14:15 AMB (Rec: 08/04/20 15:25 AMB [email or web address]) Pelvic Floor Assessment Urine Pelvic Floor Surgery No Urinary Symptoms Urge Sensation,Prolapse, Dribbling After Urination, Incomplete Emptying Leakage Size Medium Leakage Cause Cough,Lifting,Sneeze,Urge Other Leakage Causes sit to stand Leaks Per Day 9/week Voiding Frequency every 2 hours Nocturia 1 Bowel Other Bowel Symptoms previous constipation currently on miralax Prolapse Cystocele Grade 2 Perineal Descent Resting Present Bearing Present Contraction Ability Voluntary Contraction Weak Voluntary Relaxation Moderate Manual Muscle Testing Left 2 Manual Muscle Testing Right 2 Manual Muscle Testing Anterior 2 Manual Muscle Testing Posterior 3 Muscle Endurance (Seconds) 5 Number of Quick Contractions In 10 4 Seconds PT-OP-Q Treatments Start: 08/04/20 07:54 Freq: Status: Active Protocol: Document 08/18/20 13:30 AMB (Rec: 08/18/20 15:18 AMB [id number]) Therapeutic Exercises Sitting Exercises 1 Sitting Exercise Name roll in/roll out Reps/Minutes 2x10 ea, #2 t band Neuro Re-Education Treatment Other Activities 1 Details sEMG Comments quick flicks and long holds PT-OP-T Assessment and Plan Start: 08/04/20 07:54 Freq: Status: Active Protocol: Document 08/18/20 13:30 AMB (Rec: 08/18/20 14:02 AMB [id number]) Physical Therapy Assessment Assessment Summary Assessment 2.8 resting baseline, quick flicks 13.8 avg, 10 second hold avg 14.9. Pt with good understanding of pelvic floor exercises, if she continues to improve, may not need all appoitnments scheduled, but pt is still noticing stress incotinence so will benefit from continued therapy at this time.
--- NOTE | 2020-09-01 15:14 | PT.OTN ---
Current Diagnoses Segmental and somatic dysfunction of pelvic region (09/01/20) Stress incontinence (female) (male) (09/01/20) Physical Therapy Treatment Note PT-OP-A Visit Information Start: 08/04/20 07:54 Freq: Status: Active Protocol: Document 09/01/20 12:45 AMB (Rec: 09/01/20 13:36 AMB [id number]) Out-Patient Physical Therapy Visit Information Visit Information Visit Type Treatment Note Visit Start Time 12:45 Visit Stop Time 13:30 Total Visit Minutes 45 Visit Number 3 PT-OP-B Current Condition Start: 08/04/20 07:54 Freq: Status: Active Protocol: Document 08/05/20 14:15 AMB (Rec: 08/07/20 10:56 AMB [email or web address]) Current Condition History of Current Condition Onset Date years ago Current Complaints urinary incontinence History of Current Condition Ashlie's biggest issue is moving from sit to stand after sitting for about 2 hours and then getting a sudden urge that she needs to urinate. She states she leaks enough to wet her underwear. She does drink a lot of fluid due to her autoimmune disease. She states that she usually urinates for at least 5 seconds. She denies any fecal incontinence. She does also notice leaking with cough, sneeze, lift. She has had one of a baby with Prior Functional Status Baseline Function- ADL's Independent Baseline Function- Mobility Independent Current Functional Impairments (Reported) Functional Limitations- ADL's difficulty getting to toilet in time if holding urine more than 2 hours, leak with lift cough sneeze Personal Factors Other Personal Factors That May Effect Rheumatoid arthritis, history Therapy/Recovery of bronchitis, previous history of contstipation (not currently) PT-OP-C Subjective Start: 08/04/20 07:54 Freq: Status: Active Protocol: Document 09/01/20 12:45 AMB (Rec: 09/01/20 15:11 AMB [email or web address]) OP-PT Subjective Patient Comments Patient Comments Ashlie is doing well, she does have leaking with a large squat and is working on increasing the time between voids. PT-OP-I Pelvic Floor Start: 08/04/20 07:54 Freq: Status: Active Protocol: Document 08/04/20 14:15 AMB (Rec: 08/04/20 15:25 AMB [email or web address]) Pelvic Floor Assessment Urine Pelvic Floor Surgery No Urinary Symptoms Urge Sensation,Prolapse, Dribbling After Urination, Incomplete Emptying Leakage Size Medium Leakage Cause Cough,Lifting,Sneeze,Urge Other Leakage Causes sit to stand Leaks Per Day 9/week Voiding Frequency every 2 hours Nocturia 1 Bowel Other Bowel Symptoms previous constipation currently on miralax Prolapse Cystocele Grade 2 Perineal Descent Resting Present Bearing Present Contraction Ability Voluntary Contraction Weak Voluntary Relaxation Moderate Manual Muscle Testing Left 2 Manual Muscle Testing Right 2 Manual Muscle Testing Anterior 2 Manual Muscle Testing Posterior 3 Muscle Endurance (Seconds) 5 Number of Quick Contractions In 10 4 Seconds PT-OP-Q Treatments Start: 08/04/20 07:54 Freq: Status: Active Protocol: Document 09/01/20 12:45 AMB (Rec: 09/01/20 13:36 AMB [id number]) Therapeutic Exercises Standing Exercises 3 Standing Exercise Name lifting 10# waist to chest height Comments with long hold before lift and at bottom 2 Standing Exercise Name long and quick flicks Comments stride stance 1 Standing Exercise Name long holds with mini squat PT-OP-T Assessment and Plan Start: 08/04/20 07:54 Freq: Status: Active Protocol: Document 09/01/20 12:45 AMB (Rec: 09/01/20 15:10 AMB [email or web address]) Physical Therapy Assessment Assessment Summary Assessment Ashlie is doing well with her exercises. She needs to continue to strengthen, as she does fatigue quickly. Physical Therapy Plan Next Visit Focus/Plan Next Note Type Treatment Note Next Visit Plan Increase challenge of exercises, or d/c if pt is feeling well
--- NOTE | 2020-09-08 15:00 | PT.OPDS ---
Current Diagnoses Segmental and somatic dysfunction of pelvic region (09/01/20) Stress incontinence (female) (male) (09/01/20) Visit Care Team Role Provider Type Jose Bolanos DO Family Provider Physician Primary Care Provider Specialty: Family Practice Address: [address] [place] [address], [id number] Email: Isabella Marsh MD Attending Provider Physician Referring Provider Specialty: GRAINING MACHINE OPERATOR Address: [address] [place] [address], [id number] Email: Visit Number Visit Number 3 Discharge Summary PT-OP-B Current Condition Start: 08/04/20 07:54 Freq: Status: Active Protocol: Document 08/05/20 14:15 AMB (Rec: 08/07/20 10:56 AMB [email or web address]) Current Condition History of Current Condition Onset Date years ago Current Complaints urinary incontinence History of Current Condition Ashlie's biggest issue is moving from sit to stand after sitting for about 2 hours and then getting a sudden urge that she needs to urinate. She states she leaks enough to wet her underwear. She does drink a lot of fluid due to her autoimmune disease. She states that she usually urinates for at least 5 seconds. She denies any fecal incontinence. She does also notice leaking with cough, sneeze, lift. She has had one of a baby with Prior Functional Status Baseline Function- ADL's Independent Baseline Function- Mobility Independent Current Functional Impairments (Reported) Functional Limitations- ADL's difficulty getting to toilet in time if holding urine more than 2 hours, leak with lift cough sneeze Personal Factors Other Personal Factors That May Effect Rheumatoid arthritis, history Therapy/Recovery of bronchitis, previous history of contstipation (not currently) PT-OP-C Subjective Start: 08/04/20 07:54 Freq: Status: Active Protocol: Document 09/01/20 12:45 AMB (Rec: 09/01/20 15:11 AMB [email or web address]) OP-PT Subjective Patient Comments Patient Comments Ashlie is doing well, she does have leaking with a large squat and is working on increasing the time between voids. PT-OP-I Pelvic Floor Start: 08/04/20 07:54 Freq: Status: Active Protocol: Document 08/04/20 14:15 AMB (Rec: 08/04/20 15:25 AMB [email or web address]) Pelvic Floor Assessment Urine Pelvic Floor Surgery No Urinary Symptoms Urge Sensation,Prolapse, Dribbling After Urination, Incomplete Emptying Leakage Size Medium Leakage Cause Cough,Lifting,Sneeze,Urge Other Leakage Causes sit to stand Leaks Per Day 9/week Voiding Frequency every 2 hours Nocturia 1 Bowel Other Bowel Symptoms previous constipation currently on miralax Prolapse Cystocele Grade 2 Perineal Descent Resting Present Bearing Present Contraction Ability Voluntary Contraction Weak Voluntary Relaxation Moderate Manual Muscle Testing Left 2 Manual Muscle Testing Right 2 Manual Muscle Testing Anterior 2 Manual Muscle Testing Posterior 3 Muscle Endurance (Seconds) 5 Number of Quick Contractions In 10 4 Seconds PT-OP-T Assessment and Plan Start: 08/04/20 07:54 Freq: Status: Active Protocol: Document 09/08/20 14:59 AMB (Rec: 09/08/20 15:00 AMB [email or web address]) Physical Therapy Assessment Assessment Summary Assessment Pt has met the majority of her goals, she feels she has enough exercises to continue to progress independently, and what with the pandemic, if she doesn't have to come to the hospital, that is probably for the best. Physical Therapy Plan Discharge Physical Therapy Discharge Reasons Goals Met
== END 2020-10-10 10:47 | disposition home or self-care (01) ==
LOC: PHYS 12:45
PROVIDERS: Family Provider Family Medicine; PCP Family Medicine; Referring Provider Obstetrics & Gynecology; Visit Provider Obstetrics & Gynecology
DX: N39.3 Stress incontinence (female) (male) (principal); M99.05 Segmental and somatic dysfunction of pelvic region
CPT/HCPCS: 97110; 97112; 97162

== ENCOUNTER → 2020-10-08 17:15 | Outpatient (CLI) | payer MEDICARE, OTHER, SELFPAY ==
--- NOTE | 2020-10-08 17:18 | DI.RAD.S_ITS ---
PROCEDURE: XR KNEE RT 3V INDICATIONS: knee pain TECHNIQUE: 3 views of the knee were acquired. COMPARISON: None. FINDINGS: Bones: No fractures or dislocations. No suspicious bony lesions. Mild medial and patellofemoral compartment marginal osteophytosis compatible with osteoarthritis. Soft tissues: No joint effusion. No suspicious soft tissue calcifications. IMPRESSION: Mild medial and patellofemoral compartment osteoarthritis. Dictated by: Blanca Berger MD, PhD on 10/09/2020 at 13:52 Approved by: Blanca Berger MD, PhD on 10/09/2020 at 13:54
--- NOTE | 2020-10-08 17:18 | DI.RAD.S_ITS ---
PROCEDURE: XR KNEE LT 3V INDICATIONS: knee pain TECHNIQUE: 3 views of the knee were acquired. COMPARISON: None. FINDINGS: Bones: No fractures or dislocations. No suspicious bony lesions. Mild medial and patellofemoral compartment marginal osteophytosis compatible with osteoarthritis. Soft tissues: No joint effusion. No suspicious soft tissue calcifications. IMPRESSION: Mild medial and patellofemoral compartment osteoarthritis. Dictated by: Blanca Beregr MD, PhD on 10/09/2020 at 13:54 Approved by: Blanca Berger MD, PhD on 10/09/2020 at 13:55
== END ==
PROVIDERS: Family Provider Family Medicine; PCP Family Medicine; Referring Provider Family Medicine; Visit Provider Family Medicine
DX: M17.0 Bilateral primary osteoarthritis of knee (principal); M25.561 Pain in right knee; M25.562 Pain in left knee
CPT/HCPCS: 73562

== ENCOUNTER 2021-02-18 12:00 | Outpatient (RCR) | payer MEDICARE, OTHER, SELFPAY ==
--- NOTE | 2020-12-23 17:53 | PT.OIE ---
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) Other disorders of patella, unspecified knee (12/23/20) Unspecified internal derangement of unspecified knee (12/23/20) Pain in right knee (12/23/20) Pain in left knee (12/23/20) Past Medical History (Last Updated 11/27/20 @ 18:03 by Jose Bolanos DO) Abnormal MRI, lumbar spine Actinic keratosis Allergic rhinitis Asthma Bilateral hand pain Bilateral knee pain Bladder prolapse Cervical somatic dysfunction Colon polyps (04/2014) Constipation due to slow transit Disseminated superficial actinic porokeratosis (DSAP) (~08/2017) Eczema Gastric polyps (04/2014) Gastroparesis GERD (gastroesophageal reflux disease) History of Lyme disease Left-sided low back pain without sciatica Multinodular goiter (~1999) Paresthesia of both feet Pelvic somatic dysfunction Physical exam, annual Rheumatoid arthritis Rheumatoid arthritis Right hip pain Sacral region somatic dysfunction Segmental and somatic dysfunction of rib cage Sleep apnea Somatic dysfunction of abdominal region Somatic dysfunction of lower extremity Somatic dysfunction of right lower extremity Stiff neck Stress incontinence in female SVT (supraventricular tachycardia) (02/2016) Thoracic region somatic dysfunction Thyroid nodule Upper extremity somatic dysfunction Vitamin D deficiency Past Surgical History (Last Reviewed 07/01/20 @ 13:40 by Isabella Marsh MD) History of tonsillectomy (08/09/19) Visit Care Team Role Provider Type Jose Bolanos DO Primary Care Provider Physician Specialty: Family Practice Address: [address] [place] [address], [facility] Email: Thee Cameron MD Attending Provider Physician Referring Provider Specialty: Orthopedic Surgery Address: [address] [place] [address], [id number] Email: [email or web address] Physical Therapy Initial Evaluation PT-OP-A Visit Information Start: 12/23/20 14:01 Freq: Status: Active Protocol: Document 12/23/20 11:15 DCW (Rec: 12/23/20 14:24 DCW [id number]) Out-Patient Physical Therapy Visit Information Visit Information Visit Type Initial Evaluation Visit Start Time 11:15 Visit Stop Time 11:55 Total Visit Minutes 40 Visit Number 1 Number of INTEL RECRUITER Visits 0 Evaluation Information Evaluation Date 12/23/20 PT-OP-B Current Condition Start: 12/23/20 14:01 Freq: Status: Active Protocol: Document 12/23/20 11:15 DCW (Rec: 12/23/20 14:24 [facility] [id number]) Current Condition History of Current Condition Onset Date Six months Current Complaints Knee pain, mainly at night History of Current Condition Pt is a 70 year old female presenting with a six month history of knee pain. When pain began, it was very back suddenly at night, but would go away during the day. Does note that over a last few weeks, it has been worsening, to the point where her knees were achy pretty much all day yesterday, but it is still much more severe at night. X- rays have shown minimal degenerative changes. Pain does not prevenet pt from her usual habit of walking 2+ miles daily. She can't think of anything in general that makes her symptoms worse, but has noticed recently some increased difficulty walking downhill. Prior Treatments and Tests Left knee x-ray: IMPRESSION: Mild medial and patellofemoral compartment osteoarthritis. Per Blanca Berger MD, PhD on 2020 Prior Functional Status Baseline Function- ADL's Independent Baseline Function- Mobility Independent Personal Factors Other Personal Factors That May Effect Rheumatoid Arthritis Therapy/Recovery PT-OP-C Subjective Start: 12/23/20 14:01 Freq: Status: Active Protocol: Document 12/23/20 11:15 DCW (Rec: 12/23/20 14:24 [facility] [id number]) OP-PT Subjective Patient Comments Patient Comments My watch adjuster does won't say for certain that my knee pain is RA, but he also won't say for certain that it isn't RA. Patient Reported Progress Worse Patient Questionnaires Lower Extremity Functional Scale LEFS Score 41/80 = 51.25% OP-PT Pain Assessment Location Bilateral Knee Intensity 7 Scale Used Numeric (0 - 10) PT-OP-F Manual Assessment Start: 12/23/20 14:01 Freq: Status: Active Protocol: Document 12/23/20 11:15 DCW (Rec: 12/23/20 14:30 LAW [id number]) Manual Assessments Soft Tissue Assessment Soft Tissue Mobility Assessment Moderate bilateral VMO atrophy , minimal contraction during quad set Joint Mobility Assessment Joint Mobility Assessment Poor patellafemoral tracking, minimal medial pull with knee extension PT-OP-K Range of Motion Start: 12/23/20 14:01 Freq: Status: Active Protocol: Document 12/23/20 11:15 DCW (Rec: 12/23/20 14:30 DCW [id number]) Knee Goniometric Range of Motion Knee Right Knee ROM WFL Yes Left Knee ROM WFL Yes PT-OP-L Special Tests Start: 12/23/20 14:01 Freq: Status: Active Protocol: Document 12/23/20 11:15 DCW (Rec: 12/23/20 17:53 DCW [id number]) Special Tests Knee Special Tests Varus- 0 Degrees Test Results Negative bilaterally Valgus- 0 Degrees Test Results Negative bilaterally Patellar Grind Test Test Results Mildly positive bilaterally Clarke Test Test Results Negative bilaterally Stephan's Test Results Negative bilaterally Anterior Draw Test Results Negative bilaterally PT-OP-M Strength Start: 12/23/20 14:01 Freq: Status: Active Protocol: Document 12/23/20 11:15 DCW (Rec: 12/23/20 17:53 DCW [id number]) Knee Strength Knee Manual Muscle Testing Right Flexion (S2) 5 Normal Extension (L3) 5 Normal Comments VMO Atrophy Left Flexion (S2) 5 Normal Extension (L3) 5 Normal Comments VMO Atrophy PT-OP-Q Treatments Start: 12/23/20 14:01 Freq: Status: Active Protocol: Document 12/23/20 11:15 DCW (Rec: 12/23/20 17:53 DCW [id number]) Therapeutic Exercises Supine Exercises 2 Supine Exercise Name Bridging /c Adductor ball squeeze Side bilateral Reps/Minutes x15 1 Supine Exercise Name SLR /c ER Side bilateral Reps/Minutes x15 Sidelying Exercises 1 Sidelying Exercise Name SLR Adduction Side bilateral Reps/Minutes x15 Standing Exercises 3 Standing Exercise Name Wall squat /c Adductor ball squeeze Side bilateral Reps/Minutes x10 PT-OP-T Assessment and Plan Start: 12/23/20 14:01 Freq: Status: Active Protocol: Document 12/23/20 11:15 DCW (Rec: 12/23/20 17:53 DCW [id number]) Physical Therapy Assessment Rehab Potential Rehabilitation Potential Excellent Evaluation Complexity Number of Personal Factors/Comorbidities 1-2 Number of Body Systems Impaired 1-2 Clinical Presentation at Evaluation Stable Impairments Impairments Functional Mobility,Pain, Strength,Tone Goals Three Impairment Pt has increased pain descending hills Production Aide Goal (LTG) Pt to decend all the hills on her daily walk with no increased pain LTG Duration 02/22/21 Two Impairment Pt has disturbed sleep on a nightly basis due to knee pain Fpc Goal (LTG) Pt to sleep through the night without waking due to knee pain 4 nights a week. LTG Duration 02/22/21 One Impairment Pt does not have an appropriate home exercise program Short Term Goal (STG) Pt to be independent and compliant with an appropriate HEP STG Duration 01/23/21 Assessment Summary Assessment Pt presents with signs and symptoms of decreased patellar tracking. Overall, pt presents with minimal positive objective symptoms, doing very well in general, MMT and ROM WNL. Pt just presents with some bilateral VMO atrophy, which results in poor patella tracking, decreased medial pull during knee extension, which is the most likely cause of her ongoing pain. Pt should benefit from skilled therapy focusing on VMO strengthening, patella mobilization, e-stim for quad contraction. Physical Therapy Plan Frequency and Duration Frequency of Treatment 2x/Week Duration of Treatment Two months Plan of Care Start Date 12/23/20 Plan of Care End Date 02/22/21 Therapeutic Interventions Therapeutic Interventions Home Exercise Program,Joint Mobilizations,Manual Therapy, Patient/Caregiver Education, Self-Care/Home Management,Soft Tissue Mobilization,Taping, Therapeutic Exercises Modalities Cold Pack/Ice Massage,Electric Stimulation,Hot Packs, Ultrasound Next Visit Focus/Plan Next Note Type Treatment Note Next Visit Plan [place] e-stim, VMO strengthening, patellar mobility
--- NOTE | 2020-12-23 17:53 | PT.OPPOC ---
Physical, Occupational & Speech Therapy At 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) Other disorders of patella, unspecified knee (12/23/20) Unspecified internal derangement of unspecified knee (12/23/20) Pain in right knee (12/23/20) Pain in left knee (12/23/20) Visit Care Team Role Provider Type Jose Bolanos DO Primary Care Provider Physician Specialty: Family Practice Address: [address] [place] [address], [id number] Email: Thee Cameron MD Attending Provider Physician Referring Provider Specialty: Orthopedic Surgery Address: [address] [place] [address], [id number] Email: [email or web address] Plan Of Care PT-OP-T Assessment and Plan Start: 12/23/20 14:01 Freq: Status: Active Protocol: Document 12/23/20 11:15 DCW (Rec: 12/23/20 17:53 DCW [id number]) Physical Therapy Assessment Rehab Potential Rehabilitation Potential Excellent Evaluation Complexity Number of Personal Factors/Comorbidities 1-2 Number of Body Systems Impaired 1-2 Clinical Presentation at Evaluation Stable Impairments Impairments Functional Mobility,Pain, Strength,Tone Goals Three Impairment Pt has increased pain descending hills Mcc Goal (LTG) Pt to decend all the hills on her daily walk with no increased pain LTG Duration 02/22/21 Two Impairment Pt has disturbed sleep on a nightly basis due to knee pain Mcc Goal (LTG) Pt to sleep through the night without waking due to knee pain 4 nights a week. LTG Duration 02/22/21 One Impairment Pt does not have an appropriate home exercise program Short Term Goal (STG) Pt to be independent and compliant with an appropriate HEP STG Duration 01/23/21 Assessment Summary Assessment Pt presents with signs and symptoms of decreased patellar tracking. Overall, pt presents with minimal positive objective symptoms, doing very well in general, MMT and ROM WNL. Pt just presents with some bilateral VMO atrophy, which results in poor patella tracking, decreased medial pull during knee extension, which is the most likely cause of her ongoing pain. Pt should benefit from skilled therapy focusing on VMO strengthening, patella mobilization, e-stim for quad contraction. Physical Therapy Plan Frequency and Duration Frequency of Treatment 2x/Week Duration of Treatment Two months Plan of Care Start Date 12/23/20 Plan of Care End Date 02/22/21 Therapeutic Interventions Therapeutic Interventions Home Exercise Program,Joint Mobilizations,Manual Therapy, Patient/Caregiver Education, Self-Care/Home Management,Soft Tissue Mobilization,Taping, Therapeutic Exercises Modalities Cold Pack/Ice Massage,Electric Stimulation,Hot Packs, Ultrasound Next Visit Focus/Plan Next Note Type Treatment Note Next Visit Plan [place] e-stim, VMO strengthening, patellar mobility Plan of Care Dates Plan of Care Start Date 12/23/20 Plan of Care End Date 02/22/21 Electronically Signed by: Luis Singh, PT 12/23/20 1471 Please Sign and Return: I have reviewed this Plan of Care and certify that the skilled therapy services above are required to meet the patient?s needs. Physician Signature Date Printed Name and Credentials Clinical Instructor Signature Printed Name and Credentials
--- NOTE | 2020-12-26 12:41 | PT.OTN ---
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) Other disorders of patella, unspecified knee (12/26/20) Unspecified internal derangement of unspecified knee (12/26/20) Pain in right knee (12/26/20) Pain in left knee (12/26/20) Physical Therapy Treatment Note PT-OP-A Visit Information Start: 12/23/20 14:01 Freq: Status: Active Protocol: Document 12/26/20 12:00 DCW (Rec: 12/26/20 12:41 DCW [id number]) Out-Patient Physical Therapy Visit Information Visit Information Visit Type Treatment Note Visit Start Time 12:00 Visit Stop Time 12:45 Total Visit Minutes 45 Visit Number 2 Number of ORNAMENTAL METAL ERECTOR Visits 0 Evaluation Information Evaluation Date 12/23/20 PT-OP-B Current Condition Start: 12/23/20 14:01 Freq: Status: Active Protocol: Document 12/23/20 11:15 DCW (Rec: 12/23/20 14:24 DCW [id number]) Current Condition History of Current Condition Onset Date Six months Current Complaints Knee pain, mainly at night History of Current Condition Pt is a 70 year old female presenting with a six month history of knee pain. When pain began, it was very back suddenly at night, but would go away during the day. Does note that over a last few weeks, it has been worsening, to the point where her knees were achy pretty much all day yesterday, but it is still much more severe at night. X- rays have shown minimal degenerative changes. Pain does not prevenet pt from her usual habit of walking 2+ miles daily. She can't think of anything in general that makes her symptoms worse, but has noticed recently some increased difficulty walking downhill. Prior Treatments and Tests Left knee x-ray: IMPRESSION: Mild medial and patellofemoral compartment osteoarthritis. Per Blanca Berger MD, PhD on 2020 Prior Functional Status Baseline Function- ADL's Independent Baseline Function- Mobility Independent Personal Factors Other Personal Factors That May Effect Rheumatoid Arthritis Therapy/Recovery PT-OP-C Subjective Start: 12/23/20 14:01 Freq: Status: Active Protocol: Document 12/26/20 12:00 DCW (Rec: 12/26/20 12:41 DCW [id number]) OP-PT Subjective Patient Comments Patient Comments I already feel like my knees are getting better. I'm surprised I can do those home exercises without pain. PT-OP-F Manual Assessment Start: 12/23/20 14:01 Freq: Status: Active Protocol: Document 12/23/20 11:15 DCW (Rec: 12/23/20 14:30 DCW [id number]) Manual Assessments Soft Tissue Assessment Soft Tissue Mobility Assessment Moderate bilateral VMO atrophy , minimal contraction during quad set Joint Mobility Assessment Joint Mobility Assessment Poor patellafemoral tracking, minimal medial pull with knee extension PT-OP-K Range of Motion Start: 12/23/20 14:01 Freq: Status: Active Protocol: Document 12/23/20 11:15 DCW (Rec: 12/23/20 14:30 DCW [id number]) Knee Goniometric Range of Motion Knee Right Knee ROM WFL Yes Left Knee ROM WFL Yes PT-OP-L Special Tests Start: 12/23/20 14:01 Freq: Status: Active Protocol: Document 12/23/20 11:15 DCW (Rec: 12/23/20 17:53 DCW [id number]) Special Tests Knee Special Tests Varus- 0 Degrees Test Results Negative bilaterally Valgus- 0 Degrees Test Results Negative bilaterally Patellar Grind Test Test Results Mildly positive bilaterally Clarke Test Test Results Negative bilaterally Stephan's Test Results Negative bilaterally Anterior Draw Test Results Negative bilaterally PT-OP-M Strength Start: 12/23/20 14:01 Freq: Status: Active Protocol: Document 12/23/20 11:15 DCW (Rec: 12/23/20 17:53 DCW [id number]) Knee Strength Knee Manual Muscle Testing Right Flexion (S2) 5 Normal Extension (L3) 5 Normal Comments VMO Atrophy Left Flexion (S2) 5 Normal Extension (L3) 5 Normal Comments VMO Atrophy PT-OP-Q Treatments Start: 12/23/20 14:01 Freq: Status: Active Protocol: Document 12/26/20 12:00 DCW (Rec: 12/26/20 12:41 DCW [id number]) Cardio Equipment Recumbent Elliptical (Biodex) Duration (Minutes) 5 Resistance 4 Gym Equipment Shuttle Recovery Unilateral Squats Details Lv 2 T-band lateral pull Resistance 37# Reps/Time x15 Bilateral Squats Details Ball squeeze Resistance 62# Reps/Time x25 Therapeutic Exercises Standing Exercises 2 Standing Exercise Name Step-downs Equipment Used 6 step Reps/Minutes x10 1 Standing Exercise Name TKE Side bilateral Resistance Lv 3 Equipment Used T-band Reps/Minutes x20 PT-OP-R Modalities Start: 12/23/20 14:01 Freq: Status: Active Protocol: Document 12/26/20 12:00 DCW (Rec: 12/26/20 12:41 DCW [id number]) Electric Stimulation Electric Stimulation [place]orese Stimulation Body Location Left VMO, Left Quad Duration (Minutes) 10 Intensity 28 Frequency 5 on/5 off Ramp 2.0 Patient Position Supine Comments SAQ PT-OP-T Assessment and Plan Start: 12/23/20 14:01 Freq: Status: Active Protocol: Document 12/26/20 12:00 DCW (Rec: 12/26/20 12:41 DCW [id number]) Physical Therapy Assessment Impairments Impairments Functional Mobility,Pain, Strength,Tone Goals Three Impairment Pt has increased pain descending hills Assisted Goal (LTG) Pt to decend all the hills on her daily walk with no increased pain LTG Duration 02/22/21 Two Impairment Pt has disturbed sleep on a nightly basis due to knee pain Twill Cutter Goal (LTG) Pt to sleep through the night without waking due to knee pain 4 nights a week. LTG Duration 02/22/21 One Impairment Pt does not have an appropriate home exercise program Short Term Goal (STG) Pt to be independent and compliant with an appropriate HEP STG Duration 01/23/21 Assessment Summary Assessment Pt showing very good progress so far after only one visit, much improved VMO contraction, but still some deficit with patellar tracking. Physical Therapy Plan Frequency and Duration Frequency of Treatment 2x/Week Duration of Treatment Two months Plan of Care Start Date 12/23/20 Plan of Care End Date 02/22/21 Therapeutic Interventions Therapeutic Interventions Home Exercise Program,Joint Mobilizations,Manual Therapy, Patient/Caregiver Education, Self-Care/Home Management,Soft Tissue Mobilization,Taping, Therapeutic Exercises Modalities Cold Pack/Ice Massage,Electric Stimulation,Hot Packs, Ultrasound Next Visit Focus/Plan Next Note Type Treatment Note Next Visit Plan [place]se e-stim, VMO strengthening, patellar mobility
--- NOTE | 2020-12-29 11:12 | PT.OTN ---
Current Diagnoses Chondromalacia patellae, unspecified knee (12/29/20) Other disorders of patella, unspecified knee (12/29/20) Unspecified internal derangement of unspecified knee (12/29/20) Pain in right knee (12/29/20) Pain in left knee (12/29/20) Physical Therapy Treatment Note PT-OP-A Visit Information Start: 12/23/20 14:01 Freq: Status: Active Protocol: Document 12/29/20 10:32 DCW (Rec: 12/29/20 11:10 DCW [id number]) Out-Patient Physical Therapy Visit Information Visit Information Visit Type Treatment Note Visit Start Time 10:32 Visit Stop Time 11:15 Total Visit Minutes 43 Visit Number 3 Number of CLOCK REPAIRER Visits 0 Evaluation Information Evaluation Date 12/23/20 PT-OP-B Current Condition Start: 12/23/20 14:01 Freq: Status: Active Protocol: Document 12/23/20 11:15 DCW (Rec: 12/23/20 14:24 DCW [id number]) Current Condition History of Current Condition Onset Date Six months Current Complaints Knee pain, mainly at night History of Current Condition Pt is a 70 year old female presenting with a six month history of knee pain. When pain began, it was very back suddenly at night, but would go away during the day. Does note that over a last few weeks, it has been worsening, to the point where her knees were achy pretty much all day yesterday, but it is still much more severe at night. X- rays have shown minimal degenerative changes. Pain does not prevenet pt from her usual habit of walking 2+ miles daily. She can't think of anything in general that makes her symptoms worse, but has noticed recently some increased difficulty walking downhill. Prior Treatments and Tests Left knee x-ray: IMPRESSION: Mild medial and patellofemoral compartment osteoarthritis. Per Blanca Berger MD, PhD on 2020 Prior Functional Status Baseline Function- ADL's Independent Baseline Function- Mobility Independent Personal Factors Other Personal Factors That May Effect Rheumatoid Arthritis Therapy/Recovery PT-OP-C Subjective Start: 12/23/20 14:01 Freq: Status: Active Protocol: Document 12/29/20 10:32 DCW (Rec: 12/29/20 11:10 DCW [id number]) OP-PT Subjective Patient Comments Patient Comments It's feeling so much better, it's amazing. I've never had PT work this quickly before. Still a little pain going downhill, but nothing waking me up. PT-OP-F Manual Assessment Start: 12/23/20 14:01 Freq: Status: Active Protocol: Document 12/23/20 11:15 DCW (Rec: 12/23/20 14:30 DCW [id number]) Manual Assessments Soft Tissue Assessment Soft Tissue Mobility Assessment Moderate bilateral VMO atrophy , minimal contraction during quad set Joint Mobility Assessment Joint Mobility Assessment Poor patellafemoral tracking, minimal medial pull with knee extension PT-OP-K Range of Motion Start: 12/23/20 14:01 Freq: Status: Active Protocol: Document 12/23/20 11:15 DCW (Rec: 12/23/20 14:30 DCW [id number]) Knee Goniometric Range of Motion Knee Right Knee ROM WFL Yes Left Knee ROM WFL Yes PT-OP-L Special Tests Start: 12/23/20 14:01 Freq: Status: Active Protocol: Document 12/23/20 11:15 DCW (Rec: 12/23/20 17:53 DCW [id number]) Special Tests Knee Special Tests Varus- 0 Degrees Test Results Negative bilaterally Valgus- 0 Degrees Test Results Negative bilaterally Patellar Grind Test Test Results Mildly positive bilaterally Clarke Test Test Results Negative bilaterally Stephan's Test Results Negative bilaterally Anterior Draw Test Results Negative bilaterally PT-OP-M Strength Start: 12/23/20 14:01 Freq: Status: Active Protocol: Document 12/23/20 11:15 DCW (Rec: 12/23/20 17:53 DCW [id number]) Knee Strength Knee Manual Muscle Testing Right Flexion (S2) 5 Normal Extension (L3) 5 Normal Comments VMO Atrophy Left Flexion (S2) 5 Normal Extension (L3) 5 Normal Comments VMO Atrophy PT-OP-Q Treatments Start: 12/23/20 14:01 Freq: Status: Active Protocol: Document 12/29/20 10:32 DCW (Rec: 12/29/20 11:10 DCW [id number]) Cardio Equipment Recumbent Elliptical (sciencebite) Duration (Minutes) 5 Resistance 5 Seat Position 8 Gym Equipment Shuttle Recovery Unilateral Squats Details Lv 2 T-band lateral pull Resistance 37# Reps/Time x15 Bilateral Squats Details Ball squeeze Resistance 62# Reps/Time x25 Therapeutic Exercises Sitting Exercises 1 Sitting Exercise Name LAQ Side bilateral Resistance 5# Comments 2x15 Standing Exercises 2 Standing Exercise Name Step-downs Side bilateral Equipment Used 6 step Reps/Minutes x15 1 Standing Exercise Name TKE Side bilateral Resistance Lv 3 Equipment Used T-band Reps/Minutes x20 Other Exercises 1 Other Exercise Name Resisted side-stepping Resistance Green Equipment Used T-band Comments stopped d/t R hip pain PT-OP-R Modalities Start: 12/23/20 14:01 Freq: Status: Active Protocol: Document 12/29/20 10:32 DCW (Rec: 12/29/20 11:10 DCW [id number]) Electric Stimulation Electric Stimulation French Stimulation Body Location Left VMO, Left Quad Duration (Minutes) 10 Intensity 26 Frequency 5 on/5 off Ramp 2.0 Patient Position Supine Comments SAQ PT-OP-T Assessment and Plan Start: 12/23/20 14:01 Freq: Status: Active Protocol: Document 12/29/20 10:32 DCW (Rec: 12/29/20 11:10 DCW [id number]) Physical Therapy Assessment Impairments Impairments Functional Mobility,Pain, Strength,Tone Goals Three Impairment Pt has increased pain descending hills Group Home Goal (LTG) Pt to decend all the hills on her daily walk with no increased pain LTG Duration 02/22/21 Two Impairment Pt has disturbed sleep on a nightly basis due to knee pain Ironworker Apprentice Goal (LTG) Pt to sleep through the night without waking due to knee pain 4 nights a week. LTG Duration 02/22/21 One Impairment Pt does not have an appropriate home exercise program Short Term Goal (STG) Pt to be independent and compliant with an appropriate HEP STG Duration 01/23/21 Assessment Summary Assessment Pt continues to show great progress, very good R VMO contraction, left lagging slightly behind, but still showing good improvement. Physical Therapy Plan Frequency and Duration Frequency of Treatment 2x/Week Duration of Treatment Two months Plan of Care Start Date 12/23/20 Plan of Care End Date 02/22/21 Therapeutic Interventions Therapeutic Interventions Home Exercise Program,Joint Mobilizations,Manual Therapy, Patient/Caregiver Education, Self-Care/Home Management,Soft Tissue Mobilization,Taping, Therapeutic Exercises Modalities Cold Pack/Ice Massage,Electric Stimulation,Hot Packs, Ultrasound Next Visit Focus/Plan Next Note Type Treatment Note Next Visit Plan French e-stim, VMO strengthening, patellar mobility
--- NOTE | 2021-01-01 11:15 | PT.OTN ---
Current Diagnoses Chondromalacia patellae, unspecified knee (01/01/21) Other disorders of patella, unspecified knee (01/01/21) Unspecified internal derangement of unspecified knee (01/01/21) Pain in right knee (01/01/21) Pain in left knee (01/01/21) Physical Therapy Treatment Note PT-OP-A Visit Information Start: 12/23/20 14:01 Freq: Status: Active Protocol: Document 01/01/21 10:30 DCW (Rec: 01/01/21 11:15 DCW [id number]) Out-Patient Physical Therapy Visit Information Visit Information Visit Type Treatment Note Visit Start Time 10:30 Visit Stop Time 11:15 Total Visit Minutes 45 Visit Number 4 Number of CHEMICAL MAKER Visits 0 Evaluation Information Evaluation Date 12/23/20 PT-OP-B Current Condition Start: 12/23/20 14:01 Freq: Status: Active Protocol: Document 12/23/20 11:15 DCW (Rec: 12/23/20 14:24 DCW [id number]) Current Condition History of Current Condition Onset Date Six months Current Complaints Knee pain, mainly at night History of Current Condition Pt is a 70 year old female presenting with a six month history of knee pain. When pain began, it was very back suddenly at night, but would go away during the day. Does note that over a last few weeks, it has been worsening, to the point where her knees were achy pretty much all day yesterday, but it is still much more severe at night. X- rays have shown minimal degenerative changes. Pain does not prevenet pt from her usual habit of walking 2+ miles daily. She can't think of anything in general that makes her symptoms worse, but has noticed recently some increased difficulty walking downhill. Prior Treatments and Tests Left knee x-ray: IMPRESSION: Mild medial and patellofemoral compartment osteoarthritis. Per Blanca Berger MD, PhD on 2020 Prior Functional Status Baseline Function- ADL's Independent Baseline Function- Mobility Independent Personal Factors Other Personal Factors That May Effect Rheumatoid Arthritis Therapy/Recovery PT-OP-C Subjective Start: 12/23/20 14:01 Freq: Status: Active Protocol: Document 01/01/21 10:30 DCW (Rec: 01/01/21 11:15 DCW [id number]) OP-PT Subjective Patient Comments Patient Comments Pt notes her right knee feels great. Her left is a little sore, but it is not waking me up at night. PT-OP-F Manual Assessment Start: 12/23/20 14:01 Freq: Status: Active Protocol: Document 12/23/20 11:15 DCW (Rec: 12/23/20 14:30 DCW [id number]) Manual Assessments Soft Tissue Assessment Soft Tissue Mobility Assessment Moderate bilateral VMO atrophy , minimal contraction during quad set Joint Mobility Assessment Joint Mobility Assessment Poor patellafemoral tracking, minimal medial pull with knee extension PT-OP-K Range of Motion Start: 12/23/20 14:01 Freq: Status: Active Protocol: Document 12/23/20 11:15 DCW (Rec: 12/23/20 14:30 DCW [id number]) Knee Goniometric Range of Motion Knee Right Knee ROM WFL Yes Left Knee ROM WFL Yes PT-OP-L Special Tests Start: 12/23/20 14:01 Freq: Status: Active Protocol: Document 12/23/20 11:15 DCW (Rec: 12/23/20 17:53 DCW [id number]) Special Tests Knee Special Tests Varus- 0 Degrees Test Results Negative bilaterally Valgus- 0 Degrees Test Results Negative bilaterally Patellar Grind Test Test Results Mildly positive bilaterally Clarke Test Test Results Negative bilaterally Stephan's Test Results Negative bilaterally Anterior Draw Test Results Negative bilaterally PT-OP-M Strength Start: 12/23/20 14:01 Freq: Status: Active Protocol: Document 12/23/20 11:15 DCW (Rec: 12/23/20 17:53 DCW [id number]) Knee Strength Knee Manual Muscle Testing Right Flexion (S2) 5 Normal Extension (L3) 5 Normal Comments VMO Atrophy Left Flexion (S2) 5 Normal Extension (L3) 5 Normal Comments VMO Atrophy PT-OP-Q Treatments Start: 12/23/20 14:01 Freq: Status: Active Protocol: Document 01/01/21 10:30 DCW (Rec: 01/01/21 11:15 DCW [id number]) Cardio Equipment Recumbent Elliptical (Mayi Zhaopin) Duration (Minutes) 6 Resistance 5 Seat Position 8 Gym Equipment Shuttle Recovery Unilateral Squats Details Lv 2 T-band lateral pull Resistance 37# Reps/Time x15 Bilateral Squats Details Ball squeeze Resistance 62# Reps/Time x25 Shuttle Balance Red Details Lateral weight-shift Therapeutic Exercises Standing Exercises 2 Standing Exercise Name Step-downs Side bilateral Equipment Used 6 step Reps/Minutes x15 1 Standing Exercise Name TKE Side bilateral Resistance Lv 3 Equipment Used T-band Reps/Minutes x20 3 Standing Exercise Name BOSU Lunge Side bilateral Equipment Used Blue BOSU PT-OP-R Modalities Start: 12/23/20 14:01 Freq: Status: Active Protocol: Document 01/01/21 10:30 DCW (Rec: 01/01/21 11:15 DCW [id number]) Electric Stimulation Electric Stimulation Gambian Stimulation Body Location Left VMO, Left Quad Duration (Minutes) 10 Intensity 30 Frequency 5 on/5 off Ramp 2.0 Patient Position Supine Comments SAQ PT-OP-T Assessment and Plan Start: 12/23/20 14:01 Freq: Status: Active Protocol: Document 01/01/21 10:30 DCW (Rec: 01/01/21 11:15 DCW [id number]) Physical Therapy Assessment Impairments Impairments Functional Mobility,Pain, Strength,Tone Goals Three Impairment Pt has increased pain descending hills Group Home Goal (LTG) Pt to decend all the hills on her daily walk with no increased pain LTG Duration 02/22/21 Two Impairment Pt has disturbed sleep on a nightly basis due to knee pain Welding Machine Setter Goal (LTG) Pt to sleep through the night without waking due to knee pain 4 nights a week. LTG Duration 02/22/21 One Impairment Pt does not have an appropriate home exercise program Short Term Goal (STG) Pt to be independent and compliant with an appropriate HEP STG Duration 01/23/21 Assessment Summary Assessment Pt still making fantastic progress improving bilateral VMO contraction, increased quality of patella tracking. Still some crepitus in patellofemoral joint with quad contraction. Physical Therapy Plan Frequency and Duration Frequency of Treatment 2x/Week Duration of Treatment Two months Plan of Care Start Date 12/23/20 Plan of Care End Date 02/22/21 Therapeutic Interventions Therapeutic Interventions Home Exercise Program,Joint Mobilizations,Manual Therapy, Patient/Caregiver Education, Self-Care/Home Management,Soft Tissue Mobilization,Taping, Therapeutic Exercises Modalities Cold Pack/Ice Massage,Electric Stimulation,Hot Packs, Ultrasound Next Visit Focus/Plan Next Note Type Treatment Note Next Visit Plan Gambian e-stim, VMO strengthening, patellar mobility
--- NOTE | 2021-01-05 11:15 | PT.OTN ---
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) Other disorders of patella, unspecified knee (01/05/21) Unspecified internal derangement of unspecified knee (01/05/21) Pain in right knee (01/05/21) Pain in left knee (01/05/21) Physical Therapy Treatment Note PT-OP-A Visit Information Start: 12/23/20 14:01 Freq: Status: Active Protocol: Document 01/05/21 10:30 DCW (Rec: 01/05/21 11:15 DCW [id number]) Out-Patient Physical Therapy Visit Information Visit Information Visit Type Treatment Note Visit Start Time 10:30 Visit Stop Time 11:15 Total Visit Minutes 45 Visit Number 5 Number of FULL TIME STAFF INTERPRETER Visits 0 Evaluation Information Evaluation Date 12/23/20 PT-OP-B Current Condition Start: 12/23/20 14:01 Freq: Status: Active Protocol: Document 12/23/20 11:15 DCW (Rec: 12/23/20 14:24 DCW [id number]) Current Condition History of Current Condition Onset Date Six months Current Complaints Knee pain, mainly at night History of Current Condition Pt is a 70 year old female presenting with a six month history of knee pain. When pain began, it was very back suddenly at night, but would go away during the day. Does note that over a last few weeks, it has been worsening, to the point where her knees were achy pretty much all day yesterday, but it is still much more severe at night. X- rays have shown minimal degenerative changes. Pain does not prevenet pt from her usual habit of walking 2+ miles daily. She can't think of anything in general that makes her symptoms worse, but has noticed recently some increased difficulty walking downhill. Prior Treatments and Tests Left knee x-ray: IMPRESSION: Mild medial and patellofemoral compartment osteoarthritis. Per Blanca Berger MD, PhD on 2020 Prior Functional Status Baseline Function- ADL's Independent Baseline Function- Mobility Independent Personal Factors Other Personal Factors That May Effect Rheumatoid Arthritis Therapy/Recovery PT-OP-C Subjective Start: 12/23/20 14:01 Freq: Status: Active Protocol: Document 01/05/21 10:30 DCW (Rec: 01/05/21 11:15 DCW [id number]) OP-PT Subjective Patient Comments Patient Comments Pt notes she woke up with knee pain in both knees day night, unsure what caused it. Does admit performing her HEP continues to help relieve knee pain. PT-OP-F Manual Assessment Start: 12/23/20 14:01 Freq: Status: Active Protocol: Document 12/23/20 11:15 DCW (Rec: 12/23/20 14:30 DCW [id number]) Manual Assessments Soft Tissue Assessment Soft Tissue Mobility Assessment Moderate bilateral VMO atrophy , minimal contraction during quad set Joint Mobility Assessment Joint Mobility Assessment Poor patellafemoral tracking, minimal medial pull with knee extension PT-OP-K Range of Motion Start: 12/23/20 14:01 Freq: Status: Active Protocol: Document 12/23/20 11:15 DCW (Rec: 12/23/20 14:30 DCW [id number]) Knee Goniometric Range of Motion Knee Right Knee ROM WFL Yes Left Knee ROM WFL Yes PT-OP-L Special Tests Start: 12/23/20 14:01 Freq: Status: Active Protocol: Document 12/23/20 11:15 DCW (Rec: 12/23/20 17:53 DCW [id number]) Special Tests Knee Special Tests Varus- 0 Degrees Test Results Negative bilaterally Valgus- 0 Degrees Test Results Negative bilaterally Patellar Grind Test Test Results Mildly positive bilaterally Clarke Test Test Results Negative bilaterally Stephan's Test Results Negative bilaterally Anterior Draw Test Results Negative bilaterally PT-OP-M Strength Start: 12/23/20 14:01 Freq: Status: Active Protocol: Document 12/23/20 11:15 DCW (Rec: 12/23/20 17:53 DCW [id number]) Knee Strength Knee Manual Muscle Testing Right Flexion (S2) 5 Normal Extension (L3) 5 Normal Comments VMO Atrophy Left Flexion (S2) 5 Normal Extension (L3) 5 Normal Comments VMO Atrophy PT-OP-Q Treatments Start: 12/23/20 14:01 Freq: Status: Active Protocol: Document 01/05/21 10:30 DCW (Rec: 01/05/21 11:15 DCW [id number]) Cardio Equipment Recumbent Elliptical ([employer]) Duration (Minutes) 6 Resistance 5 Seat Position 8 Gym Equipment Shuttle Recovery Unilateral Squats Details Lv 2 T-band lateral pull Resistance 37# Reps/Time x15 Bilateral Squats Details Ball squeeze Resistance 62# Reps/Time x25 Therapeutic Exercises Standing Exercises 2 Standing Exercise Name Step-downs Side bilateral Equipment Used 6 step Reps/Minutes x15 1 Standing Exercise Name TKE Side bilateral Resistance Lv 3 Equipment Used T-band Reps/Minutes x20 3 Standing Exercise Name BOSU Lunge Side bilateral Equipment Used Blue BOSU Manual Therapy Treatment Joint Mobilizations 1 Joint Patellofemoral joint mobs Direction Medial, Inf/sup Grade III Body Position Sitting PT-OP-R Modalities Start: 12/23/20 14:01 Freq: Status: Active Protocol: Document 01/05/21 10:30 DCW (Rec: 01/05/21 11:15 DCW [id number]) Electric Stimulation Electric Stimulation Norwegian Stimulation Body Location Left VMO, Left Quad Duration (Minutes) 10 Intensity 30 Frequency 5 on/5 off Ramp 2.0 Patient Position Supine Comments SAQ PT-OP-T Assessment and Plan Start: 12/23/20 14:01 Freq: Status: Active Protocol: Document 01/05/21 10:30 DCW (Rec: 01/05/21 11:15 DCW [id number]) Physical Therapy Assessment Impairments Impairments Functional Mobility,Pain, Strength,Tone Goals Three Impairment Pt has increased pain descending hills Prison Goal (LTG) Pt to decend all the hills on her daily walk with no increased pain LTG Duration 02/22/21 Two Impairment Pt has disturbed sleep on a nightly basis due to knee pain Landing Gear Mechanic Goal (LTG) Pt to sleep through the night without waking due to knee pain 4 nights a week. LTG Duration 02/22/21 One Impairment Pt does not have an appropriate home exercise program Short Term Goal (STG) Pt to be independent and compliant with an appropriate HEP STG Duration 01/23/21 Assessment Summary Assessment Pt still having some difficulty with patellar tracking in left leg, some crepitus with knee extension. Physical Therapy Plan Frequency and Duration Frequency of Treatment 2x/Week Duration of Treatment Two months Plan of Care Start Date 12/23/20 Plan of Care End Date 02/22/21 Therapeutic Interventions Therapeutic Interventions Home Exercise Program,Joint Mobilizations,Manual Therapy, Patient/Caregiver Education, Self-Care/Home Management,Soft Tissue Mobilization,Taping, Therapeutic Exercises Modalities Cold Pack/Ice Massage,Electric Stimulation,Hot Packs, Ultrasound Next Visit Focus/Plan Next Note Type Treatment Note Next Visit Plan Norwegian e-stim, VMO strengthening, patellar mobility
--- NOTE | 2021-01-08 11:10 | PT.OTN ---
Current Diagnoses Chondromalacia patellae, unspecified knee (01/08/21) Other disorders of patella, unspecified knee (01/08/21) Unspecified internal derangement of unspecified knee (01/08/21) Pain in right knee (01/08/21) Pain in left knee (01/08/21) Physical Therapy Treatment Note PT-OP-A Visit Information Start: 12/23/20 14:01 Freq: Status: Active Protocol: Document 01/08/21 10:30 DCW (Rec: 01/08/21 11:10 DCW [id number]) Out-Patient Physical Therapy Visit Information Visit Information Visit Type Treatment Note Visit Start Time 10:30 Visit Stop Time 11:15 Total Visit Minutes 45 Visit Number 6 Number of MOBILE HEAVY EQUIPMENT OPERATOR Visits 0 Evaluation Information Evaluation Date 12/23/20 PT-OP-B Current Condition Start: 12/23/20 14:01 Freq: Status: Active Protocol: Document 12/23/20 11:15 DCW (Rec: 12/23/20 14:24 DCW [id number]) Current Condition History of Current Condition Onset Date Six months Current Complaints Knee pain, mainly at night History of Current Condition Pt is a 70 year old female presenting with a six month history of knee pain. When pain began, it was very back suddenly at night, but would go away during the day. Does note that over a last few weeks, it has been worsening, to the point where her knees were achy pretty much all day yesterday, but it is still much more severe at night. X- rays have shown minimal degenerative changes. Pain does not prevenet pt from her usual habit of walking 2+ miles daily. She can't think of anything in general that makes her symptoms worse, but has noticed recently some increased difficulty walking downhill. Prior Treatments and Tests Left knee x-ray: IMPRESSION: Mild medial and patellofemoral compartment osteoarthritis. Per Blanca Berger MD, PhD on 2020 Prior Functional Status Baseline Function- ADL's Independent Baseline Function- Mobility Independent Personal Factors Other Personal Factors That May Effect Rheumatoid Arthritis Therapy/Recovery PT-OP-C Subjective Start: 12/23/20 14:01 Freq: Status: Active Protocol: Document 01/08/21 10:30 DCW (Rec: 01/08/21 11:10 DCW [id number]) OP-PT Subjective Patient Comments Patient Comments I had a good day yesterday, but then had pain again last night. My knees do always feel the best after I finish with my exercises. PT-OP-F Manual Assessment Start: 12/23/20 14:01 Freq: Status: Active Protocol: Document 12/23/20 11:15 DCW (Rec: 12/23/20 14:30 DCW [id number]) Manual Assessments Soft Tissue Assessment Soft Tissue Mobility Assessment Moderate bilateral VMO atrophy , minimal contraction during quad set Joint Mobility Assessment Joint Mobility Assessment Poor patellafemoral tracking, minimal medial pull with knee extension PT-OP-K Range of Motion Start: 12/23/20 14:01 Freq: Status: Active Protocol: Document 12/23/20 11:15 DCW (Rec: 12/23/20 14:30 DCW [id number]) Knee Goniometric Range of Motion Knee Right Knee ROM WFL Yes Left Knee ROM WFL Yes PT-OP-L Special Tests Start: 12/23/20 14:01 Freq: Status: Active Protocol: Document 12/23/20 11:15 DCW (Rec: 12/23/20 17:53 DCW [id number]) Special Tests Knee Special Tests Varus- 0 Degrees Test Results Negative bilaterally Valgus- 0 Degrees Test Results Negative bilaterally Patellar Grind Test Test Results Mildly positive bilaterally Clarke Test Test Results Negative bilaterally Stephan's Test Results Negative bilaterally Anterior Draw Test Results Negative bilaterally PT-OP-M Strength Start: 12/23/20 14:01 Freq: Status: Active Protocol: Document 12/23/20 11:15 DCW (Rec: 12/23/20 17:53 DCW [id number]) Knee Strength Knee Manual Muscle Testing Right Flexion (S2) 5 Normal Extension (L3) 5 Normal Comments VMO Atrophy Left Flexion (S2) 5 Normal Extension (L3) 5 Normal Comments VMO Atrophy PT-OP-Q Treatments Start: 12/23/20 14:01 Freq: Status: Active Protocol: Document 01/08/21 10:30 DCW (Rec: 01/08/21 11:10 DCW [id number]) Cardio Equipment Recumbent Elliptical ([employer]) Duration (Minutes) 6 Resistance 5 Seat Position 8 Gym Equipment Shuttle Recovery Unilateral Squats Details Lv 2 T-band lateral pull Resistance 37# Reps/Time x15 Bilateral Squats Details Ball squeeze Resistance 62# Reps/Time x25 Shuttle Balance Red Details Lateral weight-shift Sport Cord Red Exercise Details BOSU Lunges Cord/Resistance Red Therapeutic Exercises Standing Exercises 2 Standing Exercise Name Step-downs Side bilateral Equipment Used 6 step Reps/Minutes x15 1 Standing Exercise Name TKE Side bilateral Resistance Lv 3 Equipment Used T-band Reps/Minutes x20 Manual Therapy Treatment Joint Mobilizations 1 Joint Patellofemoral joint mobs Direction Medial, Inf/sup Grade III Body Position Sitting PT-OP-R Modalities Start: 12/23/20 14:01 Freq: Status: Active Protocol: Document 01/08/21 10:30 DCW (Rec: 01/08/21 11:10 DCW [id number]) Electric Stimulation Electric Stimulation Chilean Stimulation Body Location Left VMO, Left Quad Duration (Minutes) 10 Intensity 32 Frequency 5 on/5 off Ramp 2.0 Patient Position Supine Comments SAQ PT-OP-T Assessment and Plan Start: 12/23/20 14:01 Freq: Status: Active Protocol: Document 01/08/21 10:30 DCW (Rec: 01/08/21 11:10 DCW [id number]) Physical Therapy Assessment Impairments Impairments Functional Mobility,Pain, Strength,Tone Goals Three Impairment Pt has increased pain descending hills Acid Wash Operator Goal (LTG) Pt to decend all the hills on her daily walk with no increased pain LTG Duration 02/22/21 Two Impairment Pt has disturbed sleep on a nightly basis due to knee pain Fpc Goal (LTG) Pt to sleep through the night without waking due to knee pain 4 nights a week. LTG Duration 02/22/21 One Impairment Pt does not have an appropriate home exercise program Short Term Goal (STG) Pt to be independent and compliant with an appropriate HEP STG Duration 01/23/21 Assessment Summary Assessment Significant improvement with left VMO contraction, improved patellar tracking, still slight patella grind. Physical Therapy Plan Frequency and Duration Frequency of Treatment 2x/Week Duration of Treatment Two months Plan of Care Start Date 12/23/20 Plan of Care End Date 02/22/21 Therapeutic Interventions Therapeutic Interventions Home Exercise Program,Joint Mobilizations,Manual Therapy, Patient/Caregiver Education, Self-Care/Home Management,Soft Tissue Mobilization,Taping, Therapeutic Exercises Modalities Cold Pack/Ice Massage,Electric Stimulation,Hot Packs, Ultrasound Next Visit Focus/Plan Next Note Type Treatment Note Next Visit Plan Chilean e-stim, VMO strengthening, patellar mobility
--- NOTE | 2021-01-12 13:52 | PT.OTN ---
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) Other disorders of patella, unspecified knee (01/12/21) Unspecified internal derangement of unspecified knee (01/12/21) Pain in right knee (01/12/21) Pain in left knee (01/12/21) Physical Therapy Treatment Note PT-OP-A Visit Information Start: 12/23/20 14:01 Freq: Status: Active Protocol: Document 01/12/21 13:04 SP (Rec: 01/12/21 14:02 SP [id number]) Out-Patient Physical Therapy Visit Information Visit Information Visit Type Treatment Note Visit Start Time 13:04 Visit Stop Time 13:52 Total Visit Minutes 48 Visit Number 7 Number of PUG MACHINE OPERATOR Visits 1 Precautions Precautions Latex sensitivity contact on skin. PT-OP-B Current Condition Start: 12/23/20 14:01 Freq: Status: Active Protocol: Document 12/23/20 11:15 DCW (Rec: 12/23/20 14:24 DCW [id number]) Current Condition History of Current Condition Onset Date Six months Current Complaints Knee pain, mainly at night History of Current Condition Pt is a 70 year old female presenting with a six month history of knee pain. When pain began, it was very back suddenly at night, but would go away during the day. Does note that over a last few weeks, it has been worsening, to the point where her knees were achy pretty much all day yesterday, but it is still much more severe at night. X- rays have shown minimal degenerative changes. Pain does not prevenet pt from her usual habit of walking 2+ miles daily. She can't think of anything in general that makes her symptoms worse, but has noticed recently some increased difficulty walking downhill. Prior Treatments and Tests Left knee x-ray: IMPRESSION: Mild medial and patellofemoral compartment osteoarthritis. Per Blanca Berger MD, PhD on 2020 Prior Functional Status Baseline Function- ADL's Independent Baseline Function- Mobility Independent Personal Factors Other Personal Factors That May Effect Rheumatoid Arthritis Therapy/Recovery PT-OP-C Subjective Start: 12/23/20 14:01 Freq: Status: Active Protocol: Document 01/12/21 13:04 SP (Rec: 01/12/21 14:02 SP [id number]) OP-PT Subjective Patient Comments Patient Comments Pt states is finding more benefits post PT: less knee cap grinding, achy post descending stairs when carrying something and more freedom of movement in knees post exercises in PT and home, performing 2x/day and thinking want to do more during the day to help. PT-OP-F Manual Assessment Start: 12/23/20 14:01 Freq: Status: Active Protocol: Document 12/23/20 11:15 DCW (Rec: 12/23/20 14:30 DCW [id number]) Manual Assessments Soft Tissue Assessment Soft Tissue Mobility Assessment Moderate bilateral VMO atrophy , minimal contraction during quad set Joint Mobility Assessment Joint Mobility Assessment Poor patellafemoral tracking, minimal medial pull with knee extension PT-OP-K Range of Motion Start: 12/23/20 14:01 Freq: Status: Active Protocol: Document 12/23/20 11:15 DCW (Rec: 12/23/20 14:30 DCW [id number]) Knee Goniometric Range of Motion Knee Right Knee ROM WFL Yes Left Knee ROM WFL Yes PT-OP-L Special Tests Start: 12/23/20 14:01 Freq: Status: Active Protocol: Document 12/23/20 11:15 DCW (Rec: 12/23/20 17:53 DCW [id number]) Special Tests Knee Special Tests Varus- 0 Degrees Test Results Negative bilaterally Valgus- 0 Degrees Test Results Negative bilaterally Patellar Grind Test Test Results Mildly positive bilaterally Clarke Test Test Results Negative bilaterally Stephan's Test Results Negative bilaterally Anterior Draw Test Results Negative bilaterally PT-OP-M Strength Start: 12/23/20 14:01 Freq: Status: Active Protocol: Document 12/23/20 11:15 DCW (Rec: 12/23/20 17:53 DCW [id number]) Knee Strength Knee Manual Muscle Testing Right Flexion (S2) 5 Normal Extension (L3) 5 Normal Comments VMO Atrophy Left Flexion (S2) 5 Normal Extension (L3) 5 Normal Comments VMO Atrophy PT-OP-Q Treatments Start: 12/23/20 14:01 Freq: Status: Active Protocol: Document 01/12/21 13:04 SP (Rec: 01/12/21 14:02 SP [id number]) Cardio Equipment Recumbent Elliptical ([employer]) Duration (Minutes) 6 Resistance 5 Seat Position 8 Other 55 RPM Gym Equipment Shuttle Recovery Unilateral Squats Details Lv 2 T-band lateral pull Resistance 37# Reps/Time x15 Bilateral Squats Details Green Ball squeeze Resistance 62# Reps/Time x25 Shuttle Balance Red Details Lateral weight-shift Reps/Duration 3 min Comments -STS shifts -wt shift COG over JACQUIE Sport Cord Red Exercise Details BOSU Lunges (mid carpet line R side post) Cord/Resistance blue Reps/Duration x20 Comments B Therapeutic Exercises Standing Exercises 2 Standing Exercise Name Step-downs Side bilateral Equipment Used 6 step, R HR Reps/Minutes x15 1 Standing Exercise Name TKE Side bilateral Resistance Lv 3 Equipment Used T-band Reps/Minutes x20 3 Standing Exercise Name BOSU Lunge Side bilateral Equipment Used Blue BOSU Reps/Minutes 20 PT-OP-R Modalities Start: 12/23/20 14:01 Freq: Status: Active Protocol: Document 01/12/21 13:04 SP (Rec: 01/12/21 14:02 SP [id number]) Electric Stimulation Electric Stimulation O[place]i Stimulation Body Location Left VMO, Left Quad Duration (Minutes) 10 Intensity 27 Frequency 5 on/5 off Ramp 2.0 Patient Position Supine Comments w/SAQ over blue foam roller ( attended) PT-OP-T Assessment and Plan Start: 12/23/20 14:01 Freq: Status: Active Protocol: Document 01/12/21 13:04 SP (Rec: 01/12/21 14:02 SP [id number]) Physical Therapy Assessment Goals Three Impairment Pt has increased pain descending hills Group Home Goal (LTG) Pt to decend all the hills on her daily walk with no increased pain LTG Duration 02/22/21 Two Impairment Pt has disturbed sleep on a nightly basis due to knee pain Group Home Goal (LTG) Pt to sleep through the night without waking due to knee pain 4 nights a week. LTG Duration 02/22/21 One Impairment Pt does not have an appropriate home exercise program Short Term Goal (STG) Pt to be independent and compliant with an appropriate HEP 01/12/21: HEP SLR, hip adduction, wall squats w/ ball squeeze, bridge w/ ball between knees. Added TKE today . STG Duration 01/23/21 Progress Towards Goals Progress Towards Goals Progressing Toward Goals Progress Comments Pt showing most relief of pain post tx and when does exercises. Assessment Summary Assessment Pt continues to show improvement in VMO facilitation, patellar tracking and self corrections in knee alignment during ther ex with no patellar grind during tx today. Physical Therapy Plan Frequency and Duration Frequency of Treatment 2x/Week Duration of Treatment Two months Plan of Care Start Date 12/23/20 Plan of Care End Date 02/22/21 Therapeutic Interventions Therapeutic Interventions Home Exercise Program,Joint Mobilizations,Manual Therapy, Patient/Caregiver Education, Self-Care/Home Management,Soft Tissue Mobilization,Taping, Therapeutic Exercises Modalities Cold Pack/Ice Massage,Electric Stimulation,Hot Packs, Ultrasound Next Visit Focus/Plan Next Note Type Treatment Note Next Visit Plan Provided latex TB #3 for home HEP TKE and good response to descend stairs 1 HR as in tx today. Next tx add sit<>stands to help descent to chair. Continue per PT POC: Omani e -stim, VMO strengthening, patellar mobility
--- NOTE | 2021-01-12 13:52 | PT.OTN ---
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) Other disorders of patella, unspecified knee (01/12/21) Unspecified internal derangement of unspecified knee (01/12/21) Pain in right knee (01/12/21) Pain in left knee (01/12/21) Physical Therapy Treatment Note PT-OP-A Visit Information Start: 12/23/20 14:01 Freq: Status: Active Protocol: Document 01/12/21 13:04 SP (Rec: 01/12/21 14:02 SP [id number]) Out-Patient Physical Therapy Visit Information Visit Information Visit Type Treatment Note Visit Start Time 13:04 Visit Stop Time 13:52 Total Visit Minutes 48 Visit Number 7 Number of PRODUCTION CLOTH CUTTER Visits 1 Precautions Precautions Latex sensitivity contact on skin. PT-OP-B Current Condition Start: 12/23/20 14:01 Freq: Status: Active Protocol: Document 12/23/20 11:15 DCW (Rec: 12/23/20 14:24 DCW [id number]) Current Condition History of Current Condition Onset Date Six months Current Complaints Knee pain, mainly at night History of Current Condition Pt is a 70 year old female presenting with a six month history of knee pain. When pain began, it was very back suddenly at night, but would go away during the day. Does note that over a last few weeks, it has been worsening, to the point where her knees were achy pretty much all day yesterday, but it is still much more severe at night. X- rays have shown minimal degenerative changes. Pain does not prevenet pt from her usual habit of walking 2+ miles daily. She can't think of anything in general that makes her symptoms worse, but has noticed recently some increased difficulty walking downhill. Prior Treatments and Tests Left knee x-ray: IMPRESSION: Mild medial and patellofemoral compartment osteoarthritis. Per Blanca Berger MD, PhD on 2020 Prior Functional Status Baseline Function- ADL's Independent Baseline Function- Mobility Independent Personal Factors Other Personal Factors That May Effect Rheumatoid Arthritis Therapy/Recovery PT-OP-C Subjective Start: 12/23/20 14:01 Freq: Status: Active Protocol: Document 01/12/21 13:04 SP (Rec: 01/12/21 14:02 SP [id number]) OP-PT Subjective Patient Comments Patient Comments Pt states B knees discomfort constantly the same upon arrival. She is finding more benefits post PT: less knee cap grinding, achy post descending stairs when carrying something and more freedom of movement in knees post exercises in PT and home, performing 2x/day and thinking want to do more during the day to help B knees feel better. PT-OP-F Manual Assessment Start: 12/23/20 14:01 Freq: Status: Active Protocol: Document 12/23/20 11:15 DCW (Rec: 12/23/20 14:30 DCW [id number]) Manual Assessments Soft Tissue Assessment Soft Tissue Mobility Assessment Moderate bilateral VMO atrophy , minimal contraction during quad set Joint Mobility Assessment Joint Mobility Assessment Poor patellafemoral tracking, minimal medial pull with knee extension PT-OP-K Range of Motion Start: 12/23/20 14:01 Freq: Status: Active Protocol: Document 12/23/20 11:15 DCW (Rec: 12/23/20 14:30 DCW [id number]) Knee Goniometric Range of Motion Knee Right Knee ROM WFL Yes Left Knee ROM WFL Yes PT-OP-L Special Tests Start: 12/23/20 14:01 Freq: Status: Active Protocol: Document 12/23/20 11:15 DCW (Rec: 12/23/20 17:53 DCW [id number]) Special Tests Knee Special Tests Varus- 0 Degrees Test Results Negative bilaterally Valgus- 0 Degrees Test Results Negative bilaterally Patellar Grind Test Test Results Mildly positive bilaterally Clarke Test Test Results Negative bilaterally Stephan's Test Results Negative bilaterally Anterior Draw Test Results Negative bilaterally PT-OP-M Strength Start: 12/23/20 14:01 Freq: Status: Active Protocol: Document 12/23/20 11:15 DCW (Rec: 12/23/20 17:53 DCW [id number]) Knee Strength Knee Manual Muscle Testing Right Flexion (S2) 5 Normal Extension (L3) 5 Normal Comments VMO Atrophy Left Flexion (S2) 5 Normal Extension (L3) 5 Normal Comments VMO Atrophy PT-OP-Q Treatments Start: 12/23/20 14:01 Freq: Status: Active Protocol: Document 01/12/21 13:04 SP (Rec: 01/12/21 14:02 SP [id number]) Cardio Equipment Recumbent Elliptical (Biodex) Duration (Minutes) 6 Resistance 5 Seat Position 8 Other 55 RPM Gym Equipment Shuttle Recovery Unilateral Squats Details Lv 2 T-band lateral pull Resistance 37# Reps/Time x15 Bilateral Squats Details Green Ball squeeze Resistance 62# Reps/Time x25 Shuttle Balance Red Details Lateral weight-shift Reps/Duration 3 min Comments -STS shifts -wt shift COG over JACQUIE Sport Cord Red Exercise Details BOSU Lunges (mid carpet line R side post) Cord/Resistance blue Reps/Duration x20 Comments B Therapeutic Exercises Standing Exercises 2 Standing Exercise Name Step-downs Side bilateral Equipment Used 6 step, R HR Reps/Minutes x15 1 Standing Exercise Name TKE Side bilateral Resistance Lv 3 Equipment Used T-band Reps/Minutes x20 3 Standing Exercise Name BOSU Lunge Side bilateral Equipment Used Blue BOSU Reps/Minutes 20 PT-OP-R Modalities Start: 12/23/20 14:01 Freq: Status: Active Protocol: Document 01/12/21 13:04 SP (Rec: 01/12/21 14:02 SP [id number]) Electric Stimulation Electric Stimulation Malawian Stimulation Body Location Left VMO, Left Quad Duration (Minutes) 10 Intensity 27 Frequency 5 on/5 off Ramp 2.0 Patient Position Supine Comments w/SAQ over blue foam roller ( attended) PT-OP-T Assessment and Plan Start: 12/23/20 14:01 Freq: Status: Active Protocol: Document 01/12/21 13:04 SP (Rec: 01/12/21 14:02 SP [id number]) Physical Therapy Assessment Goals Three Impairment Pt has increased pain descending hills [facility] Goal (LTG) Pt to decend all the hills on her daily walk with no increased pain LTG Duration 02/22/21 Two Impairment Pt has disturbed sleep on a nightly basis due to knee pain [facility] Goal (LTG) Pt to sleep through the night without waking due to knee pain 4 nights a week. LTG Duration 02/22/21 One Impairment Pt does not have an appropriate home exercise program Short Term Goal (STG) Pt to be independent and compliant with an appropriate HEP 01/12/21: HEP SLR, hip adduction, wall squats w/ ball squeeze, bridge w/ ball between knees. Added TKE today . STG Duration 01/23/21 Progress Towards Goals Progress Towards Goals Progressing Toward Goals Progress Comments Pt showing most relief of pain post tx and when does exercises. Assessment Summary Assessment Pt continues to show improvement in VMO facilitation, patellar tracking and self corrections in knee alignment during ther ex with no patellar grind during tx today. Physical Therapy Plan Frequency and Duration Frequency of Treatment 2x/Week Duration of Treatment Two months Plan of Care Start Date 12/23/20 Plan of Care End Date 02/22/21 Therapeutic Interventions Therapeutic Interventions Home Exercise Program,Joint Mobilizations,Manual Therapy, Patient/Caregiver Education, Self-Care/Home Management,Soft Tissue Mobilization,Taping, Therapeutic Exercises Modalities Cold Pack/Ice Massage,Electric Stimulation,Hot Packs, Ultrasound Next Visit Focus/Plan Next Note Type Treatment Note Next Visit Plan Provided latex TB #3 for home HEP TKE and good response to descend stairs 1 HR as in tx today. Next tx add sit<>stands to help descent to chair. Continue per PT POC: Malawian e -stim, VMO strengthening, patellar mobility
--- NOTE | 2021-01-15 14:30 | PT.OTN ---
Current Diagnoses Chondromalacia patellae, unspecified knee (01/15/21) Other disorders of patella, unspecified knee (01/15/21) Unspecified internal derangement of unspecified knee (01/15/21) Pain in right knee (01/15/21) Pain in left knee (01/15/21) Physical Therapy Treatment Note PT-OP-A Visit Information Start: 12/23/20 14:01 Freq: Status: Active Protocol: Document 01/15/21 13:45 DCW (Rec: 01/15/21 14:30 DCW [id number]) Out-Patient Physical Therapy Visit Information Visit Information Visit Type Treatment Note Visit Start Time 13:45 Visit Stop Time 14:30 Total Visit Minutes 45 Visit Number 8 Number of MANAGER PEST Visits 0 Evaluation Information Evaluation Date 12/23/20 PT-OP-B Current Condition Start: 12/23/20 14:01 Freq: Status: Active Protocol: Document 12/23/20 11:15 DCW (Rec: 12/23/20 14:24 DCW [id number]) Current Condition History of Current Condition Onset Date Six months Current Complaints Knee pain, mainly at night History of Current Condition Pt is a 70 year old female presenting with a six month history of knee pain. When pain began, it was very back suddenly at night, but would go away during the day. Does note that over a last few weeks, it has been worsening, to the point where her knees were achy pretty much all day yesterday, but it is still much more severe at night. X- rays have shown minimal degenerative changes. Pain does not prevenet pt from her usual habit of walking 2+ miles daily. She can't think of anything in general that makes her symptoms worse, but has noticed recently some increased difficulty walking downhill. Prior Treatments and Tests Left knee x-ray: IMPRESSION: Mild medial and patellofemoral compartment osteoarthritis. Per Blanca Berger MD, PhD on 2020 Prior Functional Status Baseline Function- ADL's Independent Baseline Function- Mobility Independent Personal Factors Other Personal Factors That May Effect Rheumatoid Arthritis Therapy/Recovery PT-OP-C Subjective Start: 12/23/20 14:01 Freq: Status: Active Protocol: Document 01/15/21 13:45 DCW (Rec: 01/15/21 14:30 DCW [id number]) OP-PT Subjective Patient Comments Patient Comments No pain at night, during the day, much better. Still some soreness, but not has bad as it was before. I can still feel it the most going down the stairs. PT-OP-F Manual Assessment Start: 12/23/20 14:01 Freq: Status: Active Protocol: Document 12/23/20 11:15 DCW (Rec: 12/23/20 14:30 DCW [id number]) Manual Assessments Soft Tissue Assessment Soft Tissue Mobility Assessment Moderate bilateral VMO atrophy , minimal contraction during quad set Joint Mobility Assessment Joint Mobility Assessment Poor patellafemoral tracking, minimal medial pull with knee extension PT-OP-K Range of Motion Start: 12/23/20 14:01 Freq: Status: Active Protocol: Document 12/23/20 11:15 DCW (Rec: 12/23/20 14:30 DCW [id number]) Knee Goniometric Range of Motion Knee Right Knee ROM WFL Yes Left Knee ROM WFL Yes PT-OP-L Special Tests Start: 12/23/20 14:01 Freq: Status: Active Protocol: Document 12/23/20 11:15 DCW (Rec: 12/23/20 17:53 DCW [id number]) Special Tests Knee Special Tests Varus- 0 Degrees Test Results Negative bilaterally Valgus- 0 Degrees Test Results Negative bilaterally Patellar Grind Test Test Results Mildly positive bilaterally Clarke Test Test Results Negative bilaterally Stephan's Test Results Negative bilaterally Anterior Draw Test Results Negative bilaterally PT-OP-M Strength Start: 12/23/20 14:01 Freq: Status: Active Protocol: Document 12/23/20 11:15 DCW (Rec: 12/23/20 17:53 DCW [id number]) Knee Strength Knee Manual Muscle Testing Right Flexion (S2) 5 Normal Extension (L3) 5 Normal Comments VMO Atrophy Left Flexion (S2) 5 Normal Extension (L3) 5 Normal Comments VMO Atrophy PT-OP-Q Treatments Start: 12/23/20 14:01 Freq: Status: Active Protocol: Document 01/15/21 13:45 DCW (Rec: 01/15/21 14:30 DCW [id number]) Cardio Equipment Recumbent Elliptical (Advanced Telemetry) Duration (Minutes) 6 Resistance 6 Seat Position 8 Gym Equipment Shuttle Recovery Unilateral Squats Details Lv 2 T-band lateral pull Resistance 37# Reps/Time x15 Bilateral Squats Details Green Ball squeeze Resistance 62# Reps/Time x25 Shuttle Balance Red Details Lateral weight-shift Sport Cord Red Exercise Details BOSU Lunges Cord/Resistance Blue Therapeutic Exercises Sidelying Exercises 2 Sidelying Exercise Name 3-way clamshells Side bilateral Standing Exercises 2 Standing Exercise Name Step-downs Side bilateral Equipment Used 6 step Reps/Minutes x15 1 Standing Exercise Name TKE Side bilateral Resistance Lv 3 Equipment Used T-band Reps/Minutes x20 Manual Therapy Treatment Joint Mobilizations 1 Joint Patellofemoral joint mobs Direction Medial, Inf/sup Grade III Body Position Sitting PT-OP-R Modalities Start: 12/23/20 14:01 Freq: Status: Active Protocol: Document 01/15/21 13:45 DCW (Rec: 01/15/21 14:30 DCW [id number]) Electric Stimulation Electric Stimulation Gibraltarian Stimulation Body Location Left VMO, Left Quad Duration (Minutes) 10 Intensity 30 Frequency 5 on/5 off Ramp 2.0 Patient Position Supine Comments w/SAQ over blue foam roller ( attended) PT-OP-T Assessment and Plan Start: 12/23/20 14:01 Freq: Status: Active Protocol: Document 01/15/21 13:45 DCW (Rec: 01/15/21 14:30 DCW [id number]) Physical Therapy Assessment Impairments Impairments Functional Mobility,Pain, Strength,Tone Goals Three Impairment Pt has increased pain descending hills Multiple Wire Sawyer Goal (LTG) Pt to decend all the hills on her daily walk with no increased pain LTG Duration 02/22/21 Two Impairment Pt has disturbed sleep on a nightly basis due to knee pain Custodial Goal (LTG) Pt to sleep through the night without waking due to knee pain 4 nights a week. LTG Duration 02/22/21 One Impairment Pt does not have an appropriate home exercise program Short Term Goal (STG) Pt to be independent and compliant with an appropriate HEP STG Duration 01/23/21 Assessment Summary Assessment Pt continues to do very well overall, showing great improvement with VMO contraction, decreased patella pain. Physical Therapy Plan Frequency and Duration Frequency of Treatment 2x/Week Duration of Treatment Two months Plan of Care Start Date 12/23/20 Plan of Care End Date 02/22/21 Therapeutic Interventions Therapeutic Interventions Home Exercise Program,Joint Mobilizations,Manual Therapy, Patient/Caregiver Education, Self-Care/Home Management,Soft Tissue Mobilization,Taping, Therapeutic Exercises Modalities Cold Pack/Ice Massage,Electric Stimulation,Hot Packs, Ultrasound Next Visit Focus/Plan Next Note Type Treatment Note Next Visit Plan Next tx add sit<>stands to help descent to chair. Continue per PT POC: Gibraltarian e -stim, VMO strengthening, patellar mobility
--- NOTE | 2021-01-19 10:01 | PT.OTN ---
Current Diagnoses Chondromalacia patellae, unspecified knee (01/19/21) Other disorders of patella, unspecified knee (01/19/21) Unspecified internal derangement of unspecified knee (01/19/21) Pain in right knee (01/19/21) Pain in left knee (01/19/21) Physical Therapy Treatment Note PT-OP-A Visit Information Start: 12/23/20 14:01 Freq: Status: Active Protocol: Document 01/19/21 08:54 SP (Rec: 01/19/21 10:12 SP [id number]) Out-Patient Physical Therapy Visit Information Visit Information Visit Type Treatment Note Visit Start Time 08:54 Visit Stop Time 10:01 Total Visit Minutes 67 Visit Number 9 Number of PARTITION MAKING MACHINE OPERATOR Visits 1 Evaluation Information Evaluation Date 12/23/20 Precautions Precautions LATEX SENSITIVITY contact on skin. PT-OP-B Current Condition Start: 12/23/20 14:01 Freq: Status: Active Protocol: Document 12/23/20 11:15 DCW (Rec: 12/23/20 14:24 DCW [id number]) Current Condition History of Current Condition Onset Date Six months Current Complaints Knee pain, mainly at night History of Current Condition Pt is a 70 year old female presenting with a six month history of knee pain. When pain began, it was very back suddenly at night, but would go away during the day. Does note that over a last few weeks, it has been worsening, to the point where her knees were achy pretty much all day yesterday, but it is still much more severe at night. X- rays have shown minimal degenerative changes. Pain does not prevenet pt from her usual habit of walking 2+ miles daily. She can't think of anything in general that makes her symptoms worse, but has noticed recently some increased difficulty walking downhill. Prior Treatments and Tests Left knee x-ray: IMPRESSION: Mild medial and patellofemoral compartment osteoarthritis. Per Blanca Berger MD, PhD on 2020 Prior Functional Status Baseline Function- ADL's Independent Baseline Function- Mobility Independent Personal Factors Other Personal Factors That May Effect Rheumatoid Arthritis Therapy/Recovery PT-OP-C Subjective Start: 12/23/20 14:01 Freq: Status: Active Protocol: Document 01/19/21 08:54 SP (Rec: 01/19/21 10:12 SP [id number]) OP-PT Subjective Patient Comments Patient Comments Pt stated felt so good after last tx went for a walk 2 - 2. 25 [place], not having the under knee cap pain anymore but little around the edges. Patient Reported Progress Improving PT-OP-F Manual Assessment Start: 12/23/20 14:01 Freq: Status: Active Protocol: Document 12/23/20 11:15 DCW (Rec: 12/23/20 14:30 DCW [id number]) Manual Assessments Soft Tissue Assessment Soft Tissue Mobility Assessment Moderate bilateral VMO atrophy , minimal contraction during quad set Joint Mobility Assessment Joint Mobility Assessment Poor patellafemoral tracking, minimal medial pull with knee extension PT-OP-K Range of Motion Start: 12/23/20 14:01 Freq: Status: Active Protocol: Document 12/23/20 11:15 DCW (Rec: 12/23/20 14:30 DCW [id number]) Knee Goniometric Range of Motion Knee Right Knee ROM WFL Yes Left Knee ROM WFL Yes PT-OP-L Special Tests Start: 12/23/20 14:01 Freq: Status: Active Protocol: Document 12/23/20 11:15 DCW (Rec: 12/23/20 17:53 DCW [id number]) Special Tests Knee Special Tests Varus- 0 Degrees Test Results Negative bilaterally Valgus- 0 Degrees Test Results Negative bilaterally Patellar Grind Test Test Results Mildly positive bilaterally Clarke Test Test Results Negative bilaterally Stephan's Test Results Negative bilaterally Anterior Draw Test Results Negative bilaterally PT-OP-M Strength Start: 12/23/20 14:01 Freq: Status: Active Protocol: Document 12/23/20 11:15 DCW (Rec: 12/23/20 17:53 DCW [id number]) Knee Strength Knee Manual Muscle Testing Right Flexion (S2) 5 Normal Extension (L3) 5 Normal Comments VMO Atrophy Left Flexion (S2) 5 Normal Extension (L3) 5 Normal Comments VMO Atrophy PT-OP-Q Treatments Start: 12/23/20 14:01 Freq: Status: Active Protocol: Document 01/19/21 08:54 SP (Rec: 01/19/21 10:12 SP [id number]) Cardio Equipment Recumbent Elliptical (Biodex) Duration (Minutes) 6 Resistance 6 Seat Position 8 Other 45 RPM, MET 3.12, 588 SPM Gym Equipment Shuttle Recovery Unilateral Squats Details Lv 2 T-band lateral pull ( personal latex free) Resistance 37# Reps/Time 2X20 Bilateral Squats Details Green Ball squeeze Resistance 62# Reps/Time 2x30 Shuttle Balance Red Details Lateral weight-shift, SLS Comments - STS shifts - wt shift COG over JACQUIE - forward SLS Sport Cord Red Exercise Details BOSU Stationary Lunges Cord/Resistance Blue Reps/Duration x30 Therapeutic Exercises Standing Exercises sit<>stands Standing Exercise Name slow descent Equipment Used 18 chair, front mirror Reps/Minutes x8 Comments cued knee with/ behind toes, even B LE wt distribution 2 Standing Exercise Name Step-downs Side bilateral Equipment Used 6 step Reps/Minutes x15 1 Standing Exercise Name TKE (forward, adductor fac- lateral pull) Side bilateral Resistance Lv 3>4 Equipment Used T-band Reps/Minutes x20 each direction, LE and resistance Comments trial lateral pull-R hip discomfort to discontinued, cued slow pace/no lock Manual Therapy Treatment Joint Mobilizations 1 Joint Patellofemoral joint mobs Direction Medial, Inf/sup Grade III Body Position Sitting Taping L patellar glide Body Location L Treatment Focus medial patellar tracking Type of Tape Kinesio Tape Skin Inspection intact, normal color Comments educated adverse affects, remove if noted- verbal confirmation. PT-OP-R Modalities Start: 12/23/20 14:01 Freq: Status: Active Protocol: Document 01/19/21 08:54 SP (Rec: 01/19/21 10:12 SP [id number]) Electric Stimulation Electric Stimulation Macanese Stimulation Body Location Left VMO, Left Quad Duration (Minutes) 10 Intensity 30 Frequency 5 on/5 off Ramp 2.0 Patient Position Supine Comments w/SAQ over blue foam roller ( attended) PT-OP-T Assessment and Plan Start: 12/23/20 14:01 Freq: Status: Active Protocol: Document 01/19/21 08:54 SP (Rec: 01/19/21 10:12 SP [id number]) Physical Therapy Assessment Goals Three Impairment Pt has increased pain descending hills Penitentiary Goal (LTG) Pt to decend all the hills on her daily walk with no increased pain LTG Duration 02/22/21 Two Impairment Pt has disturbed sleep on a nightly basis due to knee pain Bundler Goal (LTG) Pt to sleep through the night without waking due to knee pain 4 nights a week. LTG Duration 02/22/21 One Impairment Pt does not have an appropriate home exercise program Short Term Goal (STG) Pt to be independent and compliant with an appropriate HEP STG Duration 01/23/21 Assessment Summary Assessment Pt had good response to ther ex with L>R VMO facilitation focus. L patellar medial tracking improved w/ Macanese stim during SAQ, cued slow pacing motion. Pt stated will try to incorporate at home with 's home TENS unit with adjustment in setting. Pt stated decreased patellar pain during ex and more end tx . Physical Therapy Plan Frequency and Duration Frequency of Treatment 2x/Week Duration of Treatment Two months Plan of Care Start Date 12/23/20 Plan of Care End Date 02/22/21 Therapeutic Interventions Therapeutic Interventions Home Exercise Program,Joint Mobilizations,Manual Therapy, Patient/Caregiver Education, Self-Care/Home Management,Soft Tissue Mobilization,Taping, Therapeutic Exercises Modalities Cold Pack/Ice Massage,Electric Stimulation,Hot Packs, Ultrasound Next Visit Focus/Plan Next Note Type Treatment Note Next Visit Plan Assess response to K taping medial glide L patella for tracking. Continue per PT POC: Macanese e -stim, VMO strengthening, patellar mobility
--- NOTE | 2021-01-22 11:14 | PT.OTN ---
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) Other disorders of patella, unspecified knee (01/22/21) Unspecified internal derangement of unspecified knee (01/22/21) Pain in right knee (01/22/21) Pain in left knee (01/22/21) Physical Therapy Treatment Note PT-OP-A Visit Information Start: 12/23/20 14:01 Freq: Status: Active Protocol: Document 01/22/21 10:30 DCW (Rec: 01/22/21 11:06 DCW [id number]) Out-Patient Physical Therapy Visit Information Visit Information Visit Type Treatment Note Visit Start Time 10:30 Visit Stop Time 11:15 Total Visit Minutes 45 Visit Number 10 Number of MEDICAL STAFF PHYSICIAN Visits 0 Evaluation Information Evaluation Date 12/23/20 Precautions Precautions LATEX SENSITIVITY contact on skin. PT-OP-B Current Condition Start: 12/23/20 14:01 Freq: Status: Active Protocol: Document 12/23/20 11:15 DCW (Rec: 12/23/20 14:24 DCW [id number]) Current Condition History of Current Condition Onset Date Six months Current Complaints Knee pain, mainly at night History of Current Condition Pt is a 70 year old female presenting with a six month history of knee pain. When pain began, it was very back suddenly at night, but would go away during the day. Does note that over a last few weeks, it has been worsening, to the point where her knees were achy pretty much all day yesterday, but it is still much more severe at night. X- rays have shown minimal degenerative changes. Pain does not prevenet pt from her usual habit of walking 2+ miles daily. She can't think of anything in general that makes her symptoms worse, but has noticed recently some increased difficulty walking downhill. Prior Treatments and Tests Left knee x-ray: IMPRESSION: Mild medial and patellofemoral compartment osteoarthritis. Per Blanca Berger MD, PhD on 2020 Prior Functional Status Baseline Function- ADL's Independent Baseline Function- Mobility Independent Personal Factors Other Personal Factors That May Effect Rheumatoid Arthritis Therapy/Recovery PT-OP-C Subjective Start: 12/23/20 14:01 Freq: Status: Active Protocol: Document 01/22/21 10:30 DCW (Rec: 01/22/21 11:06 DCW [id number]) OP-PT Subjective Patient Comments Patient Comments Pt notes her knee feel good, there's just a little pain ( along the lateral patella), nothing like I was dealing with before. PT-OP-F Manual Assessment Start: 12/23/20 14:01 Freq: Status: Active Protocol: Document 12/23/20 11:15 DCW (Rec: 12/23/20 14:30 DCW [id number]) Manual Assessments Soft Tissue Assessment Soft Tissue Mobility Assessment Moderate bilateral VMO atrophy , minimal contraction during quad set Joint Mobility Assessment Joint Mobility Assessment Poor patellafemoral tracking, minimal medial pull with knee extension PT-OP-K Range of Motion Start: 12/23/20 14:01 Freq: Status: Active Protocol: Document 12/23/20 11:15 DCW (Rec: 12/23/20 14:30 DCW [id number]) Knee Goniometric Range of Motion Knee Right Knee ROM WFL Yes Left Knee ROM WFL Yes PT-OP-L Special Tests Start: 12/23/20 14:01 Freq: Status: Active Protocol: Document 12/23/20 11:15 DCW (Rec: 12/23/20 17:53 DCW [id number]) Special Tests Knee Special Tests Varus- 0 Degrees Test Results Negative bilaterally Valgus- 0 Degrees Test Results Negative bilaterally Patellar Grind Test Test Results Mildly positive bilaterally Clarke Test Test Results Negative bilaterally Stephan's Test Results Negative bilaterally Anterior Draw Test Results Negative bilaterally PT-OP-M Strength Start: 12/23/20 14:01 Freq: Status: Active Protocol: Document 12/23/20 11:15 DCW (Rec: 12/23/20 17:53 DCW [id number]) Knee Strength Knee Manual Muscle Testing Right Flexion (S2) 5 Normal Extension (L3) 5 Normal Comments VMO Atrophy Left Flexion (S2) 5 Normal Extension (L3) 5 Normal Comments VMO Atrophy PT-OP-Q Treatments Start: 12/23/20 14:01 Freq: Status: Active Protocol: Document 01/22/21 10:30 DCW (Rec: 01/22/21 11:06 DCW [id number]) Cardio Equipment Recumbent Elliptical ([employer]) Duration (Minutes) 6 Resistance 6 Seat Position 9 Gym Equipment Shuttle Recovery Unilateral Squats Details Lv 2 T-band lateral pull ( personal latex free) Resistance 37# Reps/Time 2X20 Bilateral Squats Details Green Ball squeeze Resistance 62# Reps/Time 2x30 Shuttle Balance Red Details Lateral weight-shift Therapeutic Exercises Standing Exercises 3 Standing Exercise Name ERICK Shepard Side bilateral Equipment Used Blue BOSU Manual Therapy Treatment Joint Mobilizations 1 Joint Patellofemoral joint mobs Direction Medial, Inf/sup Grade III Body Position Sitting PT-OP-R Modalities Start: 12/23/20 14:01 Freq: Status: Active Protocol: Document 01/22/21 10:30 DCW (Rec: 01/22/21 11:06 DCW [id number]) Electric Stimulation Electric Stimulation Lebanese Stimulation Body Location Left VMO, Left Quad Duration (Minutes) 10 Intensity 33 Frequency 5 on/5 off Ramp 2.0 Patient Position Supine Comments w/SAQ over blue foam roller ( attended) PT-OP-T Assessment and Plan Start: 12/23/20 14:01 Freq: Status: Active Protocol: Document 01/22/21 10:30 DCW (Rec: 01/22/21 11:06 DCW [id number]) Physical Therapy Assessment Impairments Impairments Functional Mobility,Pain, Strength,Tone Goals Three Impairment Pt has increased pain descending hills Group Home Goal (LTG) Pt to decend all the hills on her daily walk with no increased pain LTG Duration 02/22/21 Two Impairment Pt has disturbed sleep on a nightly basis due to knee pain Supervisor Assembly Goal (LTG) Pt to sleep through the night without waking due to knee pain 4 nights a week. LTG Duration 02/22/21 One Impairment Pt does not have an appropriate home exercise program Short Term Goal (STG) Pt to be independent and compliant with an appropriate HEP STG Duration Met Assessment Summary Assessment Pt has new lateral patella pain on unclear origin, but overall is showing substantial improvement with VMO strength , patella tracking, and pain. Physical Therapy Plan Frequency and Duration Frequency of Treatment 2x/Week Duration of Treatment Two months Plan of Care Start Date 12/23/20 Plan of Care End Date 02/22/21 Therapeutic Interventions Therapeutic Interventions Home Exercise Program,Joint Mobilizations,Manual Therapy, Patient/Caregiver Education, Self-Care/Home Management,Soft Tissue Mobilization,Taping, Therapeutic Exercises Modalities Cold Pack/Ice Massage,Electric Stimulation,Hot Packs, Ultrasound Next Visit Focus/Plan Next Note Type Treatment Note Next Visit Plan Assess response to K taping medial glide L patella for tracking. Continue per PT POC: Lebanese e -stim, VMO strengthening, patellar mobility
--- NOTE | 2021-01-27 11:55 | PT.OTN ---
Current Diagnoses Chondromalacia patellae, unspecified knee (01/27/21) Other disorders of patella, unspecified knee (01/27/21) Unspecified internal derangement of unspecified knee (01/27/21) Pain in right knee (01/27/21) Pain in left knee (01/27/21) Physical Therapy Treatment Note PT-OP-A Visit Information Start: 12/23/20 14:01 Freq: Status: Active Protocol: Document 01/27/21 11:15 DCW (Rec: 01/27/21 11:52 DCW [id number]) Out-Patient Physical Therapy Visit Information Visit Information Visit Type Treatment Note Visit Start Time 11:15 Visit Stop Time 12:00 Total Visit Minutes 45 Visit Number 11 Number of PARTS CHASER Visits 0 Evaluation Information Evaluation Date 12/23/20 Precautions Precautions LATEX SENSITIVITY contact on skin. PT-OP-B Current Condition Start: 12/23/20 14:01 Freq: Status: Active Protocol: Document 12/23/20 11:15 DCW (Rec: 12/23/20 14:24 DCW [id number]) Current Condition History of Current Condition Onset Date Six months Current Complaints Knee pain, mainly at night History of Current Condition Pt is a 70 year old female presenting with a six month history of knee pain. When pain began, it was very back suddenly at night, but would go away during the day. Does note that over a last few weeks, it has been worsening, to the point where her knees were achy pretty much all day yesterday, but it is still much more severe at night. X- rays have shown minimal degenerative changes. Pain does not prevenet pt from her usual habit of walking 2+ miles daily. She can't think of anything in general that makes her symptoms worse, but has noticed recently some increased difficulty walking downhill. Prior Treatments and Tests Left knee x-ray: IMPRESSION: Mild medial and patellofemoral compartment osteoarthritis. Per Blanca Berger MD, PhD on 2020 Prior Functional Status Baseline Function- ADL's Independent Baseline Function- Mobility Independent Personal Factors Other Personal Factors That May Effect Rheumatoid Arthritis Therapy/Recovery PT-OP-C Subjective Start: 12/23/20 14:01 Freq: Status: Active Protocol: Document 01/27/21 11:15 DCW (Rec: 01/27/21 11:52 DCW [id number]) OP-PT Subjective Patient Comments Patient Comments I still have a little nagging place of pain, but my legs are feeling a lot stronger. PT-OP-F Manual Assessment Start: 12/23/20 14:01 Freq: Status: Active Protocol: Document 12/23/20 11:15 DCW (Rec: 12/23/20 14:30 DCW [id number]) Manual Assessments Soft Tissue Assessment Soft Tissue Mobility Assessment Moderate bilateral VMO atrophy , minimal contraction during quad set Joint Mobility Assessment Joint Mobility Assessment Poor patellafemoral tracking, minimal medial pull with knee extension PT-OP-K Range of Motion Start: 12/23/20 14:01 Freq: Status: Active Protocol: Document 12/23/20 11:15 DCW (Rec: 12/23/20 14:30 DCW [id number]) Knee Goniometric Range of Motion Knee Right Knee ROM WFL Yes Left Knee ROM WFL Yes PT-OP-L Special Tests Start: 12/23/20 14:01 Freq: Status: Active Protocol: Document 12/23/20 11:15 DCW (Rec: 12/23/20 17:53 DCW [id number]) Special Tests Knee Special Tests Varus- 0 Degrees Test Results Negative bilaterally Valgus- 0 Degrees Test Results Negative bilaterally Patellar Grind Test Test Results Mildly positive bilaterally Clarke Test Test Results Negative bilaterally Stephan's Test Results Negative bilaterally Anterior Draw Test Results Negative bilaterally PT-OP-M Strength Start: 12/23/20 14:01 Freq: Status: Active Protocol: Document 12/23/20 11:15 DCW (Rec: 12/23/20 17:53 DCW [id number]) Knee Strength Knee Manual Muscle Testing Right Flexion (S2) 5 Normal Extension (L3) 5 Normal Comments VMO Atrophy Left Flexion (S2) 5 Normal Extension (L3) 5 Normal Comments VMO Atrophy PT-OP-Q Treatments Start: 12/23/20 14:01 Freq: Status: Active Protocol: Document 01/27/21 11:15 DCW (Rec: 01/27/21 11:52 DCW [id number]) Cardio Equipment Recumbent Elliptical ([employer]) Duration (Minutes) 6 Resistance 6 Seat Position 9 Gym Equipment Shuttle Recovery Unilateral Squats Details Lv 2 T-band lateral pull ( personal latex free) Resistance 37# Reps/Time 2X20 Bilateral Squats Details Green Ball squeeze Resistance 75# Reps/Time 2x30 Shuttle Balance Red Details Lateral weight-shift Therapeutic Exercises Standing Exercises 2 Standing Exercise Name Step-downs Side bilateral Equipment Used 4 step Reps/Minutes x15 3 Standing Exercise Name BOSU Lunges Side bilateral Equipment Used Blue BOSU Manual Therapy Treatment Joint Mobilizations 1 Joint Patellofemoral joint mobs Direction Medial, Inf/sup Grade III Body Position Sitting PT-OP-R Modalities Start: 12/23/20 14:01 Freq: Status: Active Protocol: Document 01/27/21 11:15 DCW (Rec: 01/27/21 11:52 DCW [id number]) Electric Stimulation Electric Stimulation Armenian Stimulation Body Location Left VMO, Left Quad Duration (Minutes) 10 Intensity 35 Frequency 5 on/5 off Ramp 2.0 Patient Position Supine Comments w/SAQ over blue foam roller ( attended) PT-OP-T Assessment and Plan Start: 12/23/20 14:01 Freq: Status: Active Protocol: Document 01/27/21 11:15 DCW (Rec: 01/27/21 11:52 DCW [id number]) Physical Therapy Assessment Impairments Impairments Functional Mobility,Pain, Strength,Tone Goals Three Impairment Pt has increased pain descending hills Container Packer Operator Goal (LTG) Pt to decend all the hills on her daily walk with no increased pain LTG Duration 02/22/21 Two Impairment Pt has disturbed sleep on a nightly basis due to knee pain Container Packer Operator Goal (LTG) Pt to sleep through the night without waking due to knee pain 4 nights a week. LTG Duration 02/22/21 One Impairment Pt does not have an appropriate home exercise program Short Term Goal (STG) Pt to be independent and compliant with an appropriate HEP STG Duration Met Assessment Summary Assessment Pt continues to show great progress, doing very well with VMO contraction, left still slightly behind right. Physical Therapy Plan Frequency and Duration Frequency of Treatment 2x/Week Duration of Treatment Two months Plan of Care Start Date 12/23/20 Plan of Care End Date 02/22/21 Therapeutic Interventions Therapeutic Interventions Home Exercise Program,Joint Mobilizations,Manual Therapy, Patient/Caregiver Education, Self-Care/Home Management,Soft Tissue Mobilization,Taping, Therapeutic Exercises Modalities Cold Pack/Ice Massage,Electric Stimulation,Hot Packs, Ultrasound Next Visit Focus/Plan Next Note Type Treatment Note Next Visit Plan Assess response to K taping medial glide L patella for tracking. Continue per PT POC: Armenian e -stim, VMO strengthening, patellar mobility
--- NOTE | 2021-02-04 12:40 | PT.OTN ---
Current Diagnoses Chondromalacia patellae, unspecified knee (02/04/21) Other disorders of patella, unspecified knee (02/04/21) Unspecified internal derangement of unspecified knee (02/04/21) Pain in right knee (02/04/21) Pain in left knee (02/04/21) Physical Therapy Treatment Note PT-OP-A Visit Information Start: 12/23/20 14:01 Freq: Status: Active Protocol: Document 02/04/21 12:00 DCW (Rec: 02/04/21 12:39 DCW [id number]) Out-Patient Physical Therapy Visit Information Visit Information Visit Type Treatment Note Visit Start Time 12:00 Visit Stop Time 12:45 Total Visit Minutes 45 Visit Number 12 Number of HEEL SORTER Visits 0 Evaluation Information Evaluation Date 12/23/20 Precautions Precautions LATEX SENSITIVITY contact on skin. PT-OP-B Current Condition Start: 12/23/20 14:01 Freq: Status: Active Protocol: Document 12/23/20 11:15 DCW (Rec: 12/23/20 14:24 DCW [id number]) Current Condition History of Current Condition Onset Date Six months Current Complaints Knee pain, mainly at night History of Current Condition Pt is a 70 year old female presenting with a six month history of knee pain. When pain began, it was very back suddenly at night, but would go away during the day. Does note that over a last few weeks, it has been worsening, to the point where her knees were achy pretty much all day yesterday, but it is still much more severe at night. X- rays have shown minimal degenerative changes. Pain does not prevenet pt from her usual habit of walking 2+ miles daily. She can't think of anything in general that makes her symptoms worse, but has noticed recently some increased difficulty walking downhill. Prior Treatments and Tests Left knee x-ray: IMPRESSION: Mild medial and patellofemoral compartment osteoarthritis. Per Blanca Berger MD, PhD on 2020 Prior Functional Status Baseline Function- ADL's Independent Baseline Function- Mobility Independent Personal Factors Other Personal Factors That May Effect Rheumatoid Arthritis Therapy/Recovery PT-OP-C Subjective Start: 12/23/20 14:01 Freq: Status: Active Protocol: Document 02/04/21 12:00 DCW (Rec: 02/04/21 12:39 DCW [id number]) OP-PT Subjective Patient Comments Patient Comments Pt discovered her knee positioning while performing one of her HEP exercises may have been causing increased discomfort, so she changed the positioning, and has been feeling much better. PT-OP-F Manual Assessment Start: 12/23/20 14:01 Freq: Status: Active Protocol: Document 12/23/20 11:15 DCW (Rec: 12/23/20 14:30 DCW [id number]) Manual Assessments Soft Tissue Assessment Soft Tissue Mobility Assessment Moderate bilateral VMO atrophy , minimal contraction during quad set Joint Mobility Assessment Joint Mobility Assessment Poor patellafemoral tracking, minimal medial pull with knee extension PT-OP-K Range of Motion Start: 12/23/20 14:01 Freq: Status: Active Protocol: Document 12/23/20 11:15 DCW (Rec: 12/23/20 14:30 DCW [id number]) Knee Goniometric Range of Motion Knee Right Knee ROM WFL Yes Left Knee ROM WFL Yes PT-OP-L Special Tests Start: 12/23/20 14:01 Freq: Status: Active Protocol: Document 12/23/20 11:15 DCW (Rec: 12/23/20 17:53 DCW [id number]) Special Tests Knee Special Tests Varus- 0 Degrees Test Results Negative bilaterally Valgus- 0 Degrees Test Results Negative bilaterally Patellar Grind Test Test Results Mildly positive bilaterally Clarke Test Test Results Negative bilaterally Stephan's Test Results Negative bilaterally Anterior Draw Test Results Negative bilaterally PT-OP-M Strength Start: 12/23/20 14:01 Freq: Status: Active Protocol: Document 12/23/20 11:15 DCW (Rec: 12/23/20 17:53 DCW [id number]) Knee Strength Knee Manual Muscle Testing Right Flexion (S2) 5 Normal Extension (L3) 5 Normal Comments VMO Atrophy Left Flexion (S2) 5 Normal Extension (L3) 5 Normal Comments VMO Atrophy PT-OP-Q Treatments Start: 12/23/20 14:01 Freq: Status: Active Protocol: Document 02/04/21 12:00 DCW (Rec: 02/04/21 12:39 DCW [id number]) Cardio Equipment Recumbent Elliptical ([employer] Duration (Minutes) 6 Resistance 6 Seat Position 9 Gym Equipment Shuttle Recovery Unilateral Squats Details Lv 2 T-band lateral pull ( personal latex free) Resistance 50# Reps/Time X20 each Bilateral Squats Details Green Ball squeeze Resistance 87# Reps/Time x20 Shuttle Balance Red Details Lateral weight-shift Therapeutic Exercises Standing Exercises 3 Standing Exercise Name ERICK Shepard Side bilateral Equipment Used Blue BOSU Manual Therapy Treatment Joint Mobilizations 1 Joint Patellofemoral joint mobs Direction Medial, Inf/sup Grade III Body Position Sitting PT-OP-R Modalities Start: 12/23/20 14:01 Freq: Status: Active Protocol: Document 02/04/21 12:00 DCW (Rec: 02/04/21 12:39 DCW [id number]) Electric Stimulation Electric Stimulation Australian Stimulation Body Location Left VMO, Left Quad Duration (Minutes) 10 Intensity 34 Frequency 5 on/5 off Ramp 2.0 Patient Position Supine Comments w/SAQ over blue foam roller ( attended) PT-OP-T Assessment and Plan Start: 12/23/20 14:01 Freq: Status: Active Protocol: Document 02/04/21 12:00 DCW (Rec: 02/04/21 12:39 DCW [id number]) Physical Therapy Assessment Impairments Impairments Functional Mobility,Pain, Strength,Tone Goals Three Impairment Pt has increased pain descending hills Manager Room Goal (LTG) Pt to decend all the hills on her daily walk with no increased pain LTG Duration 02/22/21 Two Impairment Pt has disturbed sleep on a nightly basis due to knee pain Shelter Goal (LTG) Pt to sleep through the night without waking due to knee pain 4 nights a week. LTG Duration 02/22/21 One Impairment Pt does not have an appropriate home exercise program Short Term Goal (STG) Pt to be independent and compliant with an appropriate HEP STG Duration Met Assessment Summary Assessment Pt doing very well, significantly less pain overall, only feels it currently with occasional stair descent. Pt is likely approaching discharge, will attend last two scheduled visits and then discharge if still doing well. Physical Therapy Plan Frequency and Duration Frequency of Treatment 2x/Week Duration of Treatment Two months Plan of Care Start Date 12/23/20 Plan of Care End Date 02/22/21 Therapeutic Interventions Therapeutic Interventions Home Exercise Program,Joint Mobilizations,Manual Therapy, Patient/Caregiver Education, Self-Care/Home Management,Soft Tissue Mobilization,Taping, Therapeutic Exercises Modalities Cold Pack/Ice Massage,Electric Stimulation,Hot Packs, Ultrasound Next Visit Focus/Plan Next Note Type Treatment Note Next Visit Plan Assess response to K taping medial glide L patella for tracking. Continue per PT POC: Australian e -stim, VMO strengthening, patellar mobility
--- NOTE | 2021-02-11 12:40 | PT.OTN ---
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) Other disorders of patella, unspecified knee (02/11/21) Unspecified internal derangement of unspecified knee (02/11/21) Pain in right knee (02/11/21) Pain in left knee (02/11/21) Physical Therapy Treatment Note PT-OP-A Visit Information Start: 12/23/20 14:01 Freq: Status: Active Protocol: Document 02/11/21 12:00 DCW (Rec: 02/11/21 12:40 DCW [id number]) Out-Patient Physical Therapy Visit Information Visit Information Visit Type Treatment Note Visit Start Time 12:00 Visit Stop Time 12:45 Total Visit Minutes 45 Visit Number 13 Number of GREETING CARD MAKER Visits 0 Evaluation Information Evaluation Date 12/23/20 Precautions Precautions LATEX SENSITIVITY contact on skin. PT-OP-B Current Condition Start: 12/23/20 14:01 Freq: Status: Active Protocol: Document 12/23/20 11:15 DCW (Rec: 12/23/20 14:24 DCW [id number]) Current Condition History of Current Condition Onset Date Six months Current Complaints Knee pain, mainly at night History of Current Condition Pt is a 70 year old female presenting with a six month history of knee pain. When pain began, it was very back suddenly at night, but would go away during the day. Does note that over a last few weeks, it has been worsening, to the point where her knees were achy pretty much all day yesterday, but it is still much more severe at night. X- rays have shown minimal degenerative changes. Pain does not prevenet pt from her usual habit of walking 2+ miles daily. She can't think of anything in general that makes her symptoms worse, but has noticed recently some increased difficulty walking downhill. Prior Treatments and Tests Left knee x-ray: IMPRESSION: Mild medial and patellofemoral compartment osteoarthritis. Per Blanca Berger MD, PhD on 2020 Prior Functional Status Baseline Function- ADL's Independent Baseline Function- Mobility Independent Personal Factors Other Personal Factors That May Effect Rheumatoid Arthritis Therapy/Recovery PT-OP-C Subjective Start: 12/23/20 14:01 Freq: Status: Active Protocol: Document 02/11/21 12:00 DCW (Rec: 02/11/21 12:40 DCW [id number]) OP-PT Subjective Patient Comments Patient Comments Knees are feeling good! PT-OP-F Manual Assessment Start: 12/23/20 14:01 Freq: Status: Active Protocol: Document 12/23/20 11:15 DCW (Rec: 12/23/20 14:30 DCW [id number]) Manual Assessments Soft Tissue Assessment Soft Tissue Mobility Assessment Moderate bilateral VMO atrophy , minimal contraction during quad set Joint Mobility Assessment Joint Mobility Assessment Poor patellafemoral tracking, minimal medial pull with knee extension PT-OP-K Range of Motion Start: 12/23/20 14:01 Freq: Status: Active Protocol: Document 12/23/20 11:15 DCW (Rec: 12/23/20 14:30 DCW [id number]) Knee Goniometric Range of Motion Knee Right Knee ROM WFL Yes Left Knee ROM WFL Yes PT-OP-L Special Tests Start: 12/23/20 14:01 Freq: Status: Active Protocol: Document 12/23/20 11:15 DCW (Rec: 12/23/20 17:53 DCW [id number]) Special Tests Knee Special Tests Varus- 0 Degrees Test Results Negative bilaterally Valgus- 0 Degrees Test Results Negative bilaterally Patellar Grind Test Test Results Mildly positive bilaterally Clarke Test Test Results Negative bilaterally Stephan's Test Results Negative bilaterally Anterior Draw Test Results Negative bilaterally PT-OP-M Strength Start: 12/23/20 14:01 Freq: Status: Active Protocol: Document 12/23/20 11:15 DCW (Rec: 12/23/20 17:53 DCW [id number]) Knee Strength Knee Manual Muscle Testing Right Flexion (S2) 5 Normal Extension (L3) 5 Normal Comments VMO Atrophy Left Flexion (S2) 5 Normal Extension (L3) 5 Normal Comments VMO Atrophy PT-OP-Q Treatments Start: 12/23/20 14:01 Freq: Status: Active Protocol: Document 02/11/21 12:00 DCW (Rec: 02/11/21 12:40 DCW [id number]) Cardio Equipment Recumbent Elliptical (BiodeTukTuk) Duration (Minutes) 6 Resistance 6 Seat Position 9 Gym Equipment Shuttle Recovery Unilateral Squats Details Lv 2 T-band lateral pull ( personal latex free) Resistance 50# Reps/Time X20 each Bilateral Squats Details Green Ball squeeze Resistance 87# Reps/Time x20 Shuttle Balance Red Details Lateral weight-shift Therapeutic Exercises Standing Exercises 3 Standing Exercise Name ERICK Shepard Side bilateral Equipment Used George SUAREZ Manual Therapy Treatment Joint Mobilizations 1 Joint Patellofemoral joint mobs Direction Medial, Inf/sup Grade III Body Position Sitting PT-OP-R Modalities Start: 12/23/20 14:01 Freq: Status: Active Protocol: Document 02/11/21 12:00 DCW (Rec: 02/11/21 12:40 DCW [id number]) Electric Stimulation Electric Stimulation Lithuanian Stimulation Body Location Left VMO, Left Quad Duration (Minutes) 10 Intensity 32 Frequency 5 on/5 off Ramp 2.0 Patient Position Supine Comments w/SAQ over blue foam roller ( attended) PT-OP-T Assessment and Plan Start: 12/23/20 14:01 Freq: Status: Active Protocol: Document 02/11/21 12:00 DCW (Rec: 02/11/21 12:40 DCW [id number]) Physical Therapy Assessment Impairments Impairments Functional Mobility,Pain, Strength,Tone Goals Three Impairment Pt has increased pain descending hills Laborer Salvage Goal (LTG) Pt to decend all the hills on her daily walk with no increased pain LTG Duration 02/22/21 Two Impairment Pt has disturbed sleep on a nightly basis due to knee pain Prison Goal (LTG) Pt to sleep through the night without waking due to knee pain 4 nights a week. LTG Duration 02/22/21 One Impairment Pt does not have an appropriate home exercise program Short Term Goal (STG) Pt to be independent and compliant with an appropriate HEP STG Duration Met Assessment Summary Assessment Pt will likely discharge following her next visit. Overall doing very well, compliant with HEP, experiencing minimal pain, improved patella tracking. Physical Therapy Plan Frequency and Duration Frequency of Treatment 2x/Week Duration of Treatment Two months Plan of Care Start Date 12/23/20 Plan of Care End Date 02/22/21 Therapeutic Interventions Therapeutic Interventions Home Exercise Program,Joint Mobilizations,Manual Therapy, Patient/Caregiver Education, Self-Care/Home Management,Soft Tissue Mobilization,Taping, Therapeutic Exercises Modalities Cold Pack/Ice Massage,Electric Stimulation,Hot Packs, Ultrasound Next Visit Focus/Plan Next Note Type Treatment Note Next Visit Plan Assess response to K taping medial glide L patella for tracking. Continue per PT POC: Lithuanian e -stim, VMO strengthening, patellar mobility
--- NOTE | 2021-02-18 12:43 | PT.OTN ---
Current Diagnoses Chondromalacia patellae, unspecified knee (02/18/21) Other disorders of patella, unspecified knee (02/18/21) Unspecified internal derangement of unspecified knee (02/18/21) Pain in right knee (02/18/21) Pain in left knee (02/18/21) Physical Therapy Treatment Note PT-OP-A Visit Information Start: 12/23/20 14:01 Freq: Status: Active Protocol: Document 02/18/21 12:00 DCW (Rec: 02/18/21 12:32 DCW [id number]) Out-Patient Physical Therapy Visit Information Visit Information Visit Type Discharge Summary Visit Start Time 12:00 Visit Stop Time 12:45 Total Visit Minutes 45 Visit Number 14 Number of MINIATURE SET CONSTRUCTOR Visits 0 Evaluation Information Evaluation Date 12/23/20 Precautions Precautions LATEX SENSITIVITY contact on skin. PT-OP-B Current Condition Start: 12/23/20 14:01 Freq: Status: Active Protocol: Document 12/23/20 11:15 DCW (Rec: 12/23/20 14:24 DCW [id number]) Current Condition History of Current Condition Onset Date Six months Current Complaints Knee pain, mainly at night History of Current Condition Pt is a 70 year old female presenting with a six month history of knee pain. When pain began, it was very back suddenly at night, but would go away during the day. Does note that over a last few weeks, it has been worsening, to the point where her knees were achy pretty much all day yesterday, but it is still much more severe at night. X- rays have shown minimal degenerative changes. Pain does not prevenet pt from her usual habit of walking 2+ miles daily. She can't think of anything in general that makes her symptoms worse, but has noticed recently some increased difficulty walking downhill. Prior Treatments and Tests Left knee x-ray: IMPRESSION: Mild medial and patellofemoral compartment osteoarthritis. Per Blanca Berger MD, PhD on 2020 Prior Functional Status Baseline Function- ADL's Independent Baseline Function- Mobility Independent Personal Factors Other Personal Factors That May Effect Rheumatoid Arthritis Therapy/Recovery PT-OP-C Subjective Start: 12/23/20 14:01 Freq: Status: Active Protocol: Document 02/18/21 12:00 DCW (Rec: 02/18/21 12:32 DCW [id number]) OP-PT Subjective Patient Comments Patient Comments Pt continues to feel very good overall. PT-OP-F Manual Assessment Start: 12/23/20 14:01 Freq: Status: Active Protocol: Document 02/18/21 12:00 DCW (Rec: 02/18/21 12:07 DCW [id number]) Manual Assessments Soft Tissue Assessment Soft Tissue Mobility Assessment VMO contraction WNL Joint Mobility Assessment Joint Mobility Assessment Patella tracking WNL PT-OP-K Range of Motion Start: 12/23/20 14:01 Freq: Status: Active Protocol: Document 12/23/20 11:15 DCW (Rec: 12/23/20 14:30 DCW [id number]) Knee Goniometric Range of Motion Knee Right Knee ROM WFL Yes Left Knee ROM WFL Yes PT-OP-L Special Tests Start: 12/23/20 14:01 Freq: Status: Active Protocol: Document 02/18/21 12:00 DCW (Rec: 02/18/21 12:07 DCW [id number]) Special Tests Knee Special Tests Patellar Grind Test Test Results Mildly positive right PT-OP-M Strength Start: 12/23/20 14:01 Freq: Status: Active Protocol: Document 02/18/21 12:00 DCW (Rec: 02/18/21 12:07 DCW [id number]) Knee Strength Knee Manual Muscle Testing Right Flexion (S2) 5 Normal Extension (L3) 5 Normal Left Flexion (S2) 5 Normal Extension (L3) 5 Normal PT-OP-Q Treatments Start: 12/23/20 14:01 Freq: Status: Active Protocol: Document 02/18/21 12:00 DCW (Rec: 02/18/21 12:32 DCW [id number]) Gym Equipment Shuttle Recovery Unilateral Squats Details Lv 2 T-band lateral pull ( personal latex free) Resistance 50# Reps/Time X20 each Bilateral Squats Details Green Ball squeeze Resistance 87# Reps/Time x20 Shuttle Balance Red Details Lateral weight-shift Therapeutic Exercises Standing Exercises 3 Standing Exercise Name ERICK Shepard Side bilateral Equipment Used Blue BOSU Manual Therapy Treatment Other Other Manual Treatments Testing PT-OP-R Modalities Start: 12/23/20 14:01 Freq: Status: Active Protocol: Document 02/18/21 12:00 DCW (Rec: 02/18/21 12:32 DCW [id number]) Electric Stimulation Electric Stimulation [place] Stimulation Body Location Left VMO, Left Quad Duration (Minutes) 10 Intensity 34 Frequency 5 on/5 off Ramp 2.0 Patient Position Supine Comments w/SAQ over blue foam roller ( attended) PT-OP-T Assessment and Plan Start: 12/23/20 14:01 Freq: Status: Active Protocol: Document 02/18/21 12:00 DCW (Rec: 02/18/21 12:32 DCW [id number]) Physical Therapy Assessment Impairments Impairments Functional Mobility,Pain, Strength,Tone Goals Three Impairment Pt has increased pain descending hills Hardware Installer Goal (LTG) Pt to decend all the hills on her daily walk with no increased pain LTG Duration Met Two Impairment Pt has disturbed sleep on a nightly basis due to knee pain Intermediate Goal (LTG) Pt to sleep through the night without waking due to knee pain 4 nights a week. LTG Duration Met One Impairment Pt does not have an appropriate home exercise program Short Term Goal (STG) Pt to be independent and compliant with an appropriate HEP STG Duration Met Progress Towards Goals Progress Towards Goals Goals Met Assessment Summary Assessment Pt has met all goals, very happy with current level of function. Pt appropriate to discharge from skilled therapy at this time,. Physical Therapy Plan Frequency and Duration Frequency of Treatment 2x/Week Duration of Treatment Two months Plan of Care Start Date 12/23/20 Plan of Care End Date 02/22/21 Therapeutic Interventions Therapeutic Interventions Home Exercise Program,Joint Mobilizations,Manual Therapy, Patient/Caregiver Education, Self-Care/Home Management,Soft Tissue Mobilization,Taping, Therapeutic Exercises Modalities Cold Pack/Ice Massage,Electric Stimulation,Hot Packs, Ultrasound Discharge Physical Therapy Discharge Reasons Goals Met Next Visit Focus/Plan Next Note Type Discharge Summary
== END 2021-02-18 14:49 | disposition home or self-care (01) ==
LOC: PHYS 12:00
PROVIDERS: PCP Family Medicine; Referring Provider Orthopaedic Surgery Adult Reconstructive Orthopaedic Surgery; Visit Provider Orthopaedic Surgery Adult Reconstructive Orthopaedic Surgery
DX: M23.90 Unspecified internal derangement of unspecified knee (principal); M25.561 Pain in right knee; M25.562 Pain in left knee; M22.8X9 Other disorders of patella, unspecified knee; M22.40 Chondromalacia patellae, unspecified knee
CPT/HCPCS: 97032; 97110; 97140; 97161

== ENCOUNTER 2021-04-23 13:30 | Outpatient (RCR) | payer MEDICARE, OTHER, SELFPAY ==
--- NOTE | 2021-02-11 15:30 | OT.OP.EVAL ---
Visit Care Team Role Provider Type Jose Bolanos DO Attending Provider Physician Primary Care Provider Referring Provider Specialty: Family Practice Address: [address] [place] [address], [id number] Email: Occupational Therapy Initial Evaluation OT Outpatient Adult Evaluation Start: 02/11/21 13:32 Freq: Status: Active Protocol: Document 02/11/21 15:44 AMS (Rec: 02/11/21 15:56 AMS [id number]) General Information Visit Start Time 10:30 Visit Stop Time 11:28 Total Visit Minutes 58 Visit Number 10/05 Plan of Care Dates 02/11/21-05/06/21 Insurance Information Medicare Treatment Setting Outpatient Care Note Type Initial Evaluation Referring Physician Jose Bolanos MD Reason for Referral RA Identification Confirmed Yes Goals Treatment Initiated home exercise program. Instructed in passive wrist stretches; visual and written instructions were provided. These will be scanned into electronic medical records by front office help staff. Instructed in passive digit stretch on TT into extension (flat palm on TT); instructed in avoidance of tight pinches (joint protection principle). Instructed in use of ball for distal UE stabilization exercise. Ashlie denied any questions. Paraffin bath to distal UEs; skin intact pre- and post- treatment. Top Installer Goals 1. Ashlie will be modified independent with distal UE home exercise program utilizing provided written and visual instructions from therapist. 2. Ashlie will verbalize 100% understanding of joint protection principles. 3. Ashlie will be able to verbally identify 2 to 3 different conservative pain management techniques that she could utilize in the home to manage presenting symptoms. 4. Ashlie will present with increased ability to successfully engage in meaningful activities d/t improvements in bilateral wrist strength; 4/5 MMT L wrist extension; 4/5 MMT R wrist extension; 4/[address]; 4/5 MMT L wrist UD; 4/[address]; 4/5 MMT R wrist UD. Assessment/Plan Treatment Assessment Patient is a 70 year-old, right hand dominant female referred to outpatient OT by PCP, Jose Bolanos MD, secondary to RA (concerns re: hands/ wrists). PMH: Significant for allergies; RA; back pain; neuropathy (distal LEs). Patient reported that she is currently receiving outpatient PT to address B knee pain/ discomfort (patellar tracking) . h/o 3 trigger finger releases in 2016 (R 3rd digit; L 3rd and 4th digits). Patient Goals: Address weakness; improve/ maintain ability to engage in meaningful activities (musical interests) Evaluation Findings: Denied use of splints during the day. Patient reports ability to complete functional tasks; w/ some difficulty managing smaller buttons. Patient reports that completes meal preparation and that she has given up knitting and spinning yarn in favor of continuing with musical pursuits. Ashlie verbalized desire to be able to play 3 hours of music per day; currently she is able to play 2 hours a day with breaks . She has made changes to approach to playing, choice of musical instruments, and hand /hold positioning of instruments. Patient completed Pain Assessment Grid and indicated 3/10 relative to dorsal digits bilaterally, 4/ 10 relative to L thumb; 5/10 relative to CMCJ pain, and 6 to 7/10 relative to dorsal bilateral wrist pain. See electronic medical records for specifics. Ashlie obtained a score of 52.3 on QuickDASH UE Outcome Measure; score of 50.0 on QuickDASH Work Module; and score of 62.5 on QuickDASH Sports/Performing Arts Module. Goniometer Measurements: 0- 50 degrees L wrist flex; 0-75 degrees L wrist ext; 0-[address]; 0-30 degrees L UD. 0-30 degrees R wrist flex; 0-70 degrees R wrist ext; 0- [address] pain- free (0-15 degrees available); 0-15 degrees R wrist UD pain- free (0-30 degrees available). WFL pain-free active supination/pronation. Decreased strength of bilateral wrists. Ashlie would likely benefit from outpatient OT to address these areas in order to maximize her success with active participation in meaningful activities. Comment 12 weeks Treatment Frequency Once a Week Therapeutic Contents Active Range of Motion, Adaptive Equipment Education, Client Education,Cognitive Skills Development,Functional Activities,Home Exercise Program,Joint Protection, Manual Therapy, Neurodevelopment Treatment, Stretching/Flexibility Activities,Therapeutic Activities,Therapeutic Exercises,Modalities Additional Types of Modalities Hot pack/Cold pack/Paraffin bath/Ultrasound
--- NOTE | 2021-02-27 15:41 | OT.OP.TRT ---
Visit Care Team Role Provider Type Jose Bolanos DO Attending Provider Physician Primary Care Provider Referring Provider Specialty: Family Practice Address: [address] [place] [address], [id number] Email: Occupational Therapy Treatment Note OT Outpatient Treatment Note - Adult Start: 02/11/21 13:32 Freq: Status: Active Protocol: Document 02/27/21 15:28 AMS (Rec: 02/27/21 15:41 AMS [id number]) OT Outpatient Adult Treatment Note Session Time Visit Start Time 10:30 Visit Stop Time 11:25 Total Visit Minutes 55 Visit Information Visit Number 11/05 Plan of Care Dates 02/11/21-05/06/21 Insurance Information Medicare Setting Treatment Setting Outpatient Care Visit Type Note Type Treatment Note General Information General Information Patient is a 70 year-old, right hand dominant female referred to outpatient OT by PCP, Jose Bolanos MD, secondary to RA (concerns re: hands/ wrists). PMH: Significant for allergies; RA; back pain; neuropathy (distal LEs). Patient reported that she is currently receiving outpatient PT to address B knee pain/ discomfort (patellar tracking) . h/o 3 trigger finger releases in 2016 (R 3rd digit; L 3rd and 4th digits). - Subjective Identification Type Name Identification Reconciled With Medical Record Observations I was discharged from PT per Ashlie. I have an appointment in a month with my detective bureau chief. I need to talk about my toes. Patient/Caregiver Compliance with Home Excellent Exercise Program - Objective Objective Measurements Please refer to below for progress towards meeting established OT goals. Assisted Goals 1. Ashlie will be modified independent with distal UE home exercise program utilizing provided written and visual instructions from therapist. 02/27/21= 25% met 2. Ashlie will verbalize 100% understanding of joint protection principles. 3. Ashlie will be able to verbally identify 2 to 3 different conservative pain management techniques that she could utilize in the home to manage presenting symptoms. 4. Ashlie will present with increased ability to successfully engage in meaningful activities d/t improvements in bilateral wrist strength; 4/5 MMT L wrist extension; 4/5 MMT R wrist extension; 4/[address]; 4/5 MMT L wrist UD; 4/[address]; 4/5 MMT R wrist UD. - Treatment 3 Descriptor Joint mobilization. Gentle friction massage. 2 Descriptor ROM Thumb ROM Wrist flexion/extension 1 Descriptor Functional weight bearing. Exercises 1 Descriptor HEP/POC. Instructed in gentle thumb mobilization technique ( distraction). Instructed in thumb ext stretch; provided with written and visual instructions and exercise was completed in treatment session . Will be scanned by front desk worker staff when they are able. Instructed in gentle weight bearing of bilateral hands w/ forward <-> backwards movement pattern at TT for functional weight bearing. Instructed to modify cleaning technique using same movement pattern. Ashlie denied questions. Answered questions re: currect wrist stretches. - Assessment Assessment of Improvement (+) compliance with home exercise program; completing stretches and has invested in personal paraffin bath. Upgraded HEP on this treatment date. Did not tolerate thumb tuck w/ UD stretch on the R; no c/o pain/discomfort of L UE . Education completed re: neutral wrist position. Tolerated functional weight bearing in forwards <-> backwards movement pattern at TT and at wall; preference for TT work. Tolerated gentle functional weight bearing in forwards <-> backwards movement pattern while seated in chair w/ bilateral arm rests. Overall, improving pain -free ROM. - Plan Therapy Recommendations Continue with Current Program, Advance per Rehabilitation Protocol
--- NOTE | 2021-03-05 16:08 | OT.OP.TRT ---
Visit Care Team Role Provider Type Jose Bolanos DO Attending Provider Physician Primary Care Provider Referring Provider Specialty: Family Practice Address: [address] [place] [address], [id number] Email: Occupational Therapy Treatment Note OT Outpatient Treatment Note - Adult Start: 02/11/21 13:32 Freq: Status: Active Protocol: Document 03/05/21 15:59 AMS (Rec: 03/05/21 16:08 AMS [id number]) OT Outpatient Adult Treatment Note Session Time Visit Start Time 10:30 Visit Stop Time 11:25 Total Visit Minutes 55 Visit Information Visit Number 12/03 Plan of Care Dates 02/11/21-05/06/21 Insurance Information Medicare Setting Treatment Setting Outpatient Care Visit Type Note Type Treatment Note General Information General Information Patient is a 70 year-old, right hand dominant female referred to outpatient OT by PCP, Jose Bolanos MD, secondary to RA (concerns re: hands/ wrists). PMH: Significant for allergies; RA; back pain; neuropathy (distal LEs). Patient reported that she is currently receiving outpatient PT to address B knee pain/ discomfort (patellar tracking) . h/o 3 trigger finger releases in 2016 (R 3rd digit; L 3rd and 4th digits). - Subjective Identification Type Name Identification Reconciled With Medical Record Observations I have been doing my exercises per Ashlie. Patient/Caregiver Compliance with Home Excellent Exercise Program - Objective Objective Measurements Please refer to below for progress towards meeting established OT goals. Transformer Stock Clerk Goals 1. Ashlie will be modified independent with distal UE home exercise program utilizing provided written and visual instructions from therapist. 02/27/21= 25% met 2. Ashlie will verbalize 100% understanding of joint protection principles. 3. Ashlie will be able to verbally identify 2 to 3 different conservative pain management techniques that she could utilize in the home to manage presenting symptoms. 4. Ashlie will present with increased ability to successfully engage in meaningful activities d/t improvements in bilateral wrist strength; 4/5 MMT L wrist extension; 4/5 MMT R wrist extension; 4/[address]; 4/5 MMT L wrist UD; 4/[address]; 4/5 MMT R wrist UD. - Treatment 4 Descriptor Ultrasound. 2.0 w/cm2. 20% duty cycle. Address inflammation. Applied to dorsal radial right wrist. Skin intact pre- and post- treatment. 3 Descriptor Joint mobilization. Gentle friction massage. 2 Descriptor ROM Thumb ROM Wrist flexion/extension 1 Descriptor Functional weight bearing. Exercises 5 Descriptor ROM of fingers. Claws w/ wrist extension. TT. 2x10. Within pain-free ROM. Flexion of all digits w/ focus on R 2nd digit w/ use of writing utensil for visual feedback. 2x10. 4 Descriptor Gentle thumb strengthening. Thumb flexion. Use of single rubberband. 2x10. 3 Descriptor Bilateral thumb ROM Thumb opposition w/ UD w/ elbow extension. Hold for 20 sec. x 2 repetitions. Thumb extension within pain- free ROM. 2x10. 2 Descriptor Bilateral wrist ROM. Isolated wrist RD. TT. 2.10. Isolated wrist UD. TT. 2x10. 1 Descriptor HEP/POC. Upgraded home exercise program. Thumb opposition combined w/ wrist UD. Isolated wrist RD/UD on TT . Fist flexion w/ use of pen for visual feedback. Gentle thumb flexion strengthening. Written and visual instructions were provided. desk operator staff to scan in recommendations as able. - Assessment Assessment of Improvement (+) compliance with home exercise program. Improving pain-free ROM of thumbs ( primarily of the R). Improving pain-free ROM of bilateral wrists. Upgraded HEP on this treatment date. Despite improving pain-free ROM, pain of bilateral wrists/hands and of the R thumb is continuing to limit Ashlie's day-to-day life. - Plan Therapy Recommendations Continue with Current Program, Advance per Rehabilitation Protocol
--- NOTE | 2021-03-12 16:14 | OT.OP.TRT ---
Visit Care Team Role Provider Type Jose Bolanos DO Attending Provider Physician Primary Care Provider Referring Provider Specialty: Family Practice Address: [address] [place] [address], [id number] Email: Occupational Therapy Treatment Note OT Outpatient Treatment Note - Adult Start: 02/11/21 13:32 Freq: Status: Active Protocol: Document 03/12/21 16:01 AMS (Rec: 03/12/21 16:14 AMS [id number]) OT Outpatient Adult Treatment Note Session Time Visit Start Time 12:30 Visit Stop Time 13:25 Total Visit Minutes 55 Visit Information Visit Number 01/03 Plan of Care Dates 02/11/21-05/06/21 Insurance Information Medicare Setting Treatment Setting Outpatient Care Visit Type Note Type Treatment Note General Information General Information Patient is a 70 year-old, right hand dominant female referred to outpatient OT by PCP, Jose Bolanos MD, secondary to RA (concerns re: hands/ wrists). PMH: Significant for allergies; RA; back pain; neuropathy (distal LEs). Patient reported that she is currently receiving outpatient PT to address B knee pain/ discomfort (patellar tracking) . h/o 3 trigger finger releases in 2016 (R 3rd digit; L 3rd and 4th digits). - Subjective Identification Type Name Identification Reconciled With Medical Record Observations I have the exercises in a notebook per Ashlie. Patient/Caregiver Compliance with Home Excellent Exercise Program - Objective Objective Measurements Please refer to below for progress towards meeting established OT goals. Hvac/R Service Technician Goals 1. Ashlie will be modified independent with distal UE home exercise program utilizing provided written and visual instructions from therapist. 03/12/21= 25% met 2. Ashlie will verbalize 100% understanding of joint protection principles. 3. Ashlie will present with increased ability to successfully engage in meaningful activities d/t improvements in bilateral wrist strength; 4/5 MMT L wrist extension; 4/5 MMT R wrist extension; 4/[address]; 4/5 MMT L wrist UD; 4/[address]; 4/5 MMT R wrist UD. GOALS MET Able to verbally identify 2 different conservative pain management techniques that she can utilize in the home to manage symptoms. *MET 03/12/21 - Treatment 4 Descriptor Ultrasound. 2.0 w/cm2. 20% duty cycle. Address inflammation. Applied to dorsal radial right wrist. Skin intact pre- and post- treatment. 3 Descriptor Joint mobilization. Gentle friction massage. 2 Descriptor ROM Thumb ROM Wrist flexion/extension Exercises 6 Descriptor Distal UE strengthening. Wrist UD. TT. Latex free TB. Resistance #1. TT. 3x10. Wrist and digit extension. Wrist in neutral w/ exclusion of thumb. Latex free TB. Resistance #1. 3x10. 5 Descriptor ROM of fingers. Claws w/ wrist extension. TT. 2x10. Within pain-free ROM. Flexion of all digits w/ focus on R 2nd digit w/ use of writing utensil for visual feedback. 2x10. 4 Descriptor Gentle thumb strengthening. Thumb abduction palm on TT. Use of single rubberband. 2x10 . Thumb extension. Isometric hold for 3-5 seconds. Use of single rubberband. 2x10. 3 Descriptor Bilateral thumb ROM Thumb opposition w/ UD w/ elbow extension. Hold for 20 sec. x 2 repetitions. Thumb extension within pain- free ROM. 2x10. 2 Descriptor Bilateral wrist ROM. Isolated wrist RD. TT. 2.10. Isolated wrist UD. TT. 2x10. 1 Descriptor HEP/POC. Upgraded home exercise program. Thumb extension/modified. Thumb abduction. Wrist extension w/ TB w/ forearm in neutral. Wrist UD w/ TB. Written and visual instructions were provided. windows desktop engineer staff to scan into electronic medical records as able. - Assessment Assessment of Improvement (+) compliance with home exercise program. Improving pain-free ROM of thumbs ( primarily of the R). Improving pain-free ROM of bilateral wrists. Upgraded HEP. Despite improving pain-free ROM, pain of bilateral wrists/hands and of the R thumb is continuing to limit Ashlie's day-to-day life. UD of PIPJ of R 2nd digit w/ poor tracking of extensor tendon across PIPJ; snapping noted w/ uncontrolled flexion of digit. Recommend referral to [facility] for custom- made finger splint. - Plan Therapy Recommendations Continue with Current Program, Advance per Rehabilitation Protocol Other Referrals Referral to [facility] for custom finger splint
--- NOTE | 2021-03-19 15:58 | OT.OP.TRT ---
Visit Care Team Role Provider Type Jose Bolanos DO Attending Provider Physician Primary Care Provider Referring Provider Specialty: Family Practice Address: [address] [place] [address], [id number] Email: Occupational Therapy Treatment Note OT Outpatient Treatment Note - Adult Start: 02/11/21 13:32 Freq: Status: Active Protocol: Document 03/19/21 15:49 AMS (Rec: 03/19/21 15:57 AMS [id number]) OT Outpatient Adult Treatment Note Session Time Visit Start Time 10:32 Visit Stop Time 11:30 Visit Information Visit Number 02/02 Plan of Care Dates 02/11/21-05/06/21 Insurance Information Medicare Setting Treatment Setting Outpatient Care Visit Type Note Type Treatment Note General Information General Information Patient is a 70 year-old, right hand dominant female referred to outpatient OT by PCP, Jose Bolanos MD, secondary to RA (concerns re: hands/ wrists). PMH: Significant for allergies; RA; back pain; neuropathy (distal LEs). Patient reported that she is currently receiving outpatient PT to address B knee pain/ discomfort (patellar tracking) . h/o 3 trigger finger releases in 2016 (R 3rd digit; L 3rd and 4th digits). - Subjective Identification Type Name Identification Reconciled With Medical Record Observations I saw my RA doctor yesterday. He is having me do lots of labs. He thinks the thumb pain is OA, as well as the 2nd finger is from OA per Ashlie. Patient/Caregiver Compliance with Home Excellent Exercise Program Comment w/ use of provided materials - Objective Objective Measurements Please refer to below for progress towards meeting established OT goals. Guest Associate Goals 1. Ashlie will be modified independent with distal UE home exercise program utilizing provided written and visual instructions from therapist. 03/19/21= 25% met 2. Ashlie will verbalize 100% understanding of joint protection principles. 03/19/21 = 50% met 3. Ashlie will present with increased ability to successfully engage in meaningful activities d/t improvements in bilateral wrist strength; 4/5 MMT L wrist extension; 4/5 MMT R wrist extension; 4/[address]; 4/5 MMT L wrist UD; 4/[address]; 4/5 MMT R wrist UD. GOALS MET Able to verbally identify 2 different conservative pain management techniques that she can utilize in the home to manage symptoms. *MET 03/12/21 - Treatment 4 Descriptor Ultrasound. 2.0 w/cm2. 20% duty cycle. Address inflammation. Applied to radial R wrist. Skin intact pre- and post- treatment. 3 Descriptor Joint mobilization. Gentle friction massage. 2 Descriptor ROM Thumb ROM. Thumb extension. Wrist flexion/extension Exercises 6 Descriptor Distal UE strengthening. Wrist UD. TT. Latex free TB. Resistance #1. TT. 3x10. Wrist and digit extension. Wrist in neutral w/ exclusion of thumb. Latex free TB. Resistance #1. 3x10. 5 Descriptor Neuro re-training. CMC thumb abduction. Tennis ball use. 4 Descriptor Gentle thumb strengthening. CMC thumb abduction. Single rubberband. 3x10. 3 Descriptor Bilateral thumb ROM Thumb opposition w/ UD w/ elbow extension. Hold for 20 sec. x 2 repetitions. Thumb extension within pain- free ROM. 2x10. 2 Descriptor Bilateral wrist ROM. Isolated wrist RD. TT. 2.10. Isolated wrist UD. TT. 2x10. 1 Descriptor HEP/POC. Modified home exercise program based on feedback; recommended focus on pain-free thumb extension, continued use of edwige bandage versus latex free theraband for wrist strengthening exercises. Instructed in CMC thumb abduction w/ single rubberband, neuro re-training w/ use of tennis ball, and gentle resisted tip pinch. Education re: functional grasp w/ writing utensil also completed. ict help desk officer staff to scan into electronic medical records as able. - Assessment Assessment of Improvement (+) compliance with home exercise program. Upgraded/ modified HEP based on feedback . Increased focus on neuro re- training of the thumb. Improving pain-free range of motion of thumbs/wrists since time of initial evaluation. Informed of request for referral to local [facility] for custom splint for 2nd digit; recommended following-up w/ PCP or [facility] facility as able. - Plan Therapy Recommendations Continue with Current Program, Advance per Rehabilitation Protocol
--- NOTE | 2021-03-26 15:42 | OT.OP.TRT ---
Visit Care Team Role Provider Type Jose Bolanos DO Attending Provider Physician Primary Care Provider Referring Provider Specialty: Family Practice Address: [address] [place] [address], [id number] Email: Occupational Therapy Treatment Note OT Outpatient Treatment Note - Adult Start: 02/11/21 13:32 Freq: Status: Active Protocol: Document 03/26/21 15:34 AMS (Rec: 03/26/21 15:42 AMS [id number]) OT Outpatient Adult Treatment Note Session Time Visit Start Time 12:30 Visit Stop Time 13:25 Total Visit Minutes 55 Visit Information Visit Number 03/05 Plan of Care Dates 02/11/21-05/06/21 Insurance Information Medicare Setting Treatment Setting Outpatient Care Visit Type Note Type Treatment Note General Information General Information Patient is a 70 year-old, right hand dominant female referred to outpatient OT by PCP, Jose Bolanos MD, secondary to RA (concerns re: hands/ wrists). PMH: Significant for allergies; RA; back pain; neuropathy (distal LEs). Patient reported that she is currently receiving outpatient PT to address B knee pain/ discomfort (patellar tracking) . h/o 3 trigger finger releases in 2016 (R 3rd digit; L 3rd and 4th digits). - Subjective Identification Type Name Identification Reconciled With Medical Record Observations I have an appointment on the with the OT at [facility] per Ashlie. Patient/Caregiver Compliance with Home Excellent Exercise Program Comment w/ use of provided materials - Objective Objective Measurements Please refer to below for progress towards meeting established OT goals. Senior Living Goals 1. Ashlie will be modified independent with distal UE home exercise program utilizing provided written and visual instructions from therapist. 03/19/21= 25% met 2. Ashlie will verbalize 100% understanding of joint protection principles. 03/19/21 = 50% met 3. Ashlie will present with increased ability to successfully engage in meaningful activities d/t improvements in bilateral wrist strength; 4/5 MMT L wrist extension; 4/5 MMT R wrist extension; 4/[address]; 4/5 MMT L wrist UD; 4/[address]; 4/5 MMT R wrist UD. GOALS MET Able to verbally identify 2 different conservative pain management techniques that she can utilize in the home to manage symptoms. *MET 03/12/21 - Treatment 4 Descriptor Ultrasound. 2.0 w/cm2. 20% duty cycle. Address inflammation. Applied to radial R wrist. Skin intact pre- and post- treatment. 3 Descriptor Gentle friction massage. 2 Descriptor ROM Thumb ROM. Thumb extension. Wrist flexion/extension Exercises 6 Descriptor Distal UE strengthening. Wrist UD. Forearm supported. Use of edwige bandage. 1x10. Wrist and digit extension against gravity. Forearm supported. Use of edwige bandage. 1x10. Wrist RD. Palm on TT. Use of edwige bandage. 1x10. Wrist flexion in gravity eliminated plane on TT. Use of edwige bandage. 1x10. 5 Descriptor Neuro re-training. CMC thumb abduction. Tennis ball use. 4 Descriptor Gentle thumb strengthening. CMC thumb abduction. Single rubberband. 3x10. 3 Descriptor Bilateral thumb ROM Thumb opposition w/ UD w/ elbow extension. Hold for 20 sec. x 2 repetitions. Thumb extension within pain- free ROM. 2x10. 2 Descriptor Bilateral wrist ROM. Isolated wrist RD. TT. 2.10. Isolated wrist UD. TT. 2x10. 1 Descriptor HEP/POC. Upgraded wrist strengthening exercises; reviewed in treatment session. Wrist RD and wrist/finger flexion w/ use of edwige bandage on TT. Wrist UD and extension w/ supported forearm on knee/ arm rest. service desk analyst staff to scan into electronic medical records as able. - Assessment Assessment of Improvement (+) compliance with home exercise program. Upgraded HEP on this treatment date. Improving pain-free ROM of bilateral thumbs. Improving awareness re: joint protection . Ashlie has appointment w/ [facility] on April 07; discussed pursuit of CMCJ/thumb brace, as well as splints for R second digit. AROM of right second digit leading to pain exacerbation. Recommended ceasing ROM exercise. - Plan Therapy Recommendations Continue with Current Program, Advance per Rehabilitation Protocol
--- NOTE | 2021-04-02 16:00 | OT.OP.TRT ---
Visit Care Team Role Provider Type Jose Bolanos DO Attending Provider Physician Primary Care Provider Referring Provider Specialty: Family Practice Address: [address] [place] [address], [id number] Email: Occupational Therapy Treatment Note OT Outpatient Treatment Note - Adult Start: 02/11/21 13:32 Freq: Status: Active Protocol: Document 04/02/21 15:51 AMS (Rec: 04/02/21 16:00 AMS [id number]) OT Outpatient Adult Treatment Note Session Time Visit Start Time 12:30 Visit Stop Time 13:25 Total Visit Minutes 55 Visit Information Visit Number 04/04 Plan of Care Dates 02/11/21-05/06/21 Insurance Information Medicare Setting Treatment Setting Outpatient Care Visit Type Note Type Treatment Note General Information General Information Patient is a 70 year-old, right hand dominant female referred to outpatient OT by PCP, Jose Bolanos MD, secondary to RA (concerns re: hands/ wrists). PMH: Significant for allergies; RA; back pain; neuropathy (distal LEs). Patient reported that she is currently receiving outpatient PT to address B knee pain/ discomfort (patellar tracking) . h/o 3 trigger finger releases in 2016 (R 3rd digit; L 3rd and 4th digits). - Subjective Identification Type Name Identification Reconciled With Medical Record Observations I have an appointment on the with Mer at [facility] per Ashlie. I got my new ukele in the mail. Patient/Caregiver Compliance with Home Excellent Exercise Program Comment w/ use of written and visual materials - Objective Objective Measurements Please refer to below for progress towards meeting established OT goals. Rate Inserter Goals 1. Ashlie will be modified independent with distal UE home exercise program utilizing provided written and visual instructions from therapist. 03/19/21= 25% met 2. Ashlie will verbalize 100% understanding of joint protection principles. 03/19/21 = 50% met 3. Ashlie will present with increased ability to successfully engage in meaningful activities d/t improvements in bilateral wrist strength; 4/5 MMT L wrist extension; 4/5 MMT R wrist extension; 4/[address]; 4/5 MMT L wrist UD; 4/[address]; 4/5 MMT R wrist UD. GOALS MET Able to verbally identify 2 different conservative pain management techniques that she can utilize in the home to manage symptoms. *MET 03/12/21 - Treatment 4 Descriptor Ultrasound. 2.0 w/cm2. 20% duty cycle. Address inflammation. Applied to radial R wrist. Skin intact pre- and post- treatment. 3 Descriptor Gentle friction massage. 2 Descriptor ROM Thumb ROM. Thumb extension. Wrist flexion/extension Exercises 7 Descriptor Wrist stabilization. Balance disc. CW and CCW. Forward/back. Ball; dynamic rotation of wrists. 6 Descriptor Distal UE strengthening. Wrist UD. Forearm supported. Use of edwige bandage. 1x10. Wrist and digit extension against gravity. Forearm supported. Use of edwige bandage. 1x10. Wrist RD. Palm on TT. Use of edwige bandage. 1x10. Wrist flexion in gravity eliminated plane on TT. Use of edwige bandage. 1x10. 5 Descriptor Neuro re-training. Modified wolof stress balls; use of golf balls. CW and CCW circling of one another. Leap frog forwards/backwards. Opposition. Finger tip/pad coordination. Single golf ball. Push-up. 3 Descriptor Bilateral thumb ROM Thumb opposition w/ UD w/ elbow extension. Hold for 20 sec. x 2 repetitions. Thumb extension within pain- free ROM. 2x10. 2 Descriptor Bilateral wrist ROM. Isolated wrist RD. TT. 2.10. Isolated wrist UD. TT. 2x10. 1 Descriptor HEP/POC. Upgraded neuro re- training exercises/ proprioceptive awareness of wrists. Patient wrote personal notes given that therapist did not have images/written details to provide for these specific exercises. All questions were answered. - Assessment Assessment of Improvement (+) compliance with home exercise program; improving wrist strength. Patient is utilizing 3 layered edwige bandages w/ execution of home wrist strengthening. Decreasing pain/discomfort of wrists/fingers/thumbs. Improving pain-free range of motion. Recommended use of heat prior to execution of exercises and/or engagement in fine motor activities ( playing of ukele). Improving motor planning of the thumb. Upgraded HEP appropriately. - Plan Therapy Recommendations Continue with Current Program, Advance per Rehabilitation Protocol
--- NOTE | 2021-04-08 15:32 | OT.OP.TRT ---
Visit Care Team Role Provider Type Jose Bolanos DO Attending Provider Physician Primary Care Provider Referring Provider Specialty: Family Practice Address: [address] [place] [address], [id number] Email: Occupational Therapy Treatment Note OT Outpatient Treatment Note - Adult Start: 02/11/21 13:32 Freq: Status: Active Protocol: Document 04/08/21 15:20 AMS (Rec: 04/08/21 15:32 AMS [id number]) OT Outpatient Adult Treatment Note Session Time Visit Start Time 10:30 Visit Stop Time 11:25 Total Visit Minutes 55 Visit Information Visit Number 05/05 Plan of Care Dates 02/11/21-05/06/21 Insurance Information Medicare Setting Treatment Setting Outpatient Care Visit Type Note Type Treatment Note General Information General Information Patient is a 70 year-old, right hand dominant female referred to outpatient OT by PCP, Jose Bolanos MD, secondary to RA (concerns re: hands/ wrists). PMH: Significant for allergies; RA; back pain; neuropathy (distal LEs). Patient reported that she is currently receiving outpatient PT to address B knee pain/ discomfort (patellar tracking) . h/o 3 trigger finger releases in 2016 (R 3rd digit; L 3rd and 4th digits). - Subjective Identification Type Name Identification Reconciled With Medical Record Observations I had an appointment with Mer . She gave me a variety of splints of this finger. She recommended the Comfort Cool Thumb Brace. She helped me figure out the right size to order and I have ordered the thumb splint to wear at night per Ashlie. Patient/Caregiver Compliance with Home Excellent Exercise Program Comment w/ use of written and visual materials - Objective Objective Measurements Please refer to below for progress towards meeting established OT goals. 04/08/21: Saw Mer at [facility]; was provided w/ various splints to rest tendon of R 2nd digit ( night resting splint and various day time splints). Instructed to wear for 4 to 6 weeks. Mer also assisted her w / identifying correct size for night time R Comfort Cool Splint. Care Home Goals 1. Ashlie will be modified independent with distal UE home exercise program utilizing provided written and visual instructions from therapist. 04/08/21= 25% met 2. Ashlie will verbalize 100% understanding of joint protection principles. 04/08/21 = 50% met 3. Ashlie will present with increased ability to successfully engage in meaningful activities d/t improvements in bilateral wrist strength; 4/5 MMT L wrist extension; 4/5 MMT R wrist extension; 4/[address]; 4/5 MMT L wrist UD; 4/[address]; 4/5 MMT R wrist UD. GOALS MET Able to verbally identify 2 different conservative pain management techniques that she can utilize in the home to manage symptoms. *MET 03/12/21 - Treatment 4 Descriptor Ultrasound. 2.0 w/cm2. 20% duty cycle. Address inflammation. Applied to radial R wrist. Skin intact pre- and post- treatment. 3 Descriptor Gentle friction massage. 2 Descriptor ROM Thumb ROM. Thumb extension. Wrist flexion/extension Exercises 7 Descriptor Wrist stabilization. Balance disc. CW and CCW. Forward/back. Rotation of disc . 6 Descriptor Wrist extension. 1#DB. Bilateral wrists. Dowel w/ rope. 5 Descriptor Neuro re-training. Yoruba stress balls - golf ball use. CW and CCW. Leap frog forwards/backwards. Single Golf Ball. Push-up. Opposition. [place] shooter. Finger tip/pad coordination. 1 Descriptor HEP/POC. Upgraded wrist strengthening exercises to decreased proximal stabilization. Patient wrote personal notes given that therapist did not have images/ written details to provide for these specific exercises. Recommended considering having spouse make dowel as option for home strengthening of the wrists (as practiced/executed in treatment session). Recommended use of marble shooter as challenge for thumb opposition exercise. Ashlie denied any questions. - Assessment Assessment of Improvement (+) compliance with home exercise program; improving wrist and thumb strength. Was able to complete 3 sets of 10 repetitions w/ single rubberband w/ R thumb extension (w/ rubberband positioned proximally to MPJ. Improving motor planning of the thumb. Received multiple splints from local T for ' resting' of tendon of R 2nd digit; also neoprene over-the- counter thumb brace was recommended for use of night for right hand. Recommended returning to [facility] for slight adjustments to splints d/t signs or symptoms of skin breakdown/skin irritation w/ splint use. Patient also likely to see orthopedic hand specialist/surgeon for consult of R 2nd digit. - Plan Therapy Recommendations Continue with Current Program, Advance per Rehabilitation Protocol
--- NOTE | 2021-04-16 15:30 | OT.OP.TRT ---
Visit Care Team Role Provider Type Jose Bolanos DO Attending Provider Physician Primary Care Provider Referring Provider Specialty: Family Practice Address: [address] [place] [address], [id number] Email: Occupational Therapy Treatment Note OT Outpatient Treatment Note - Adult Start: 02/11/21 13:32 Freq: Status: Active Protocol: Document 04/16/21 15:30 AMS (Rec: 04/17/21 15:30 AMS [id number]) OT Outpatient Adult Treatment Note Session Time Visit Start Time 13:30 Visit Stop Time 14:20 Total Visit Minutes 50 Visit Information Visit Number 06/05; 06/14 --> visit KX modifier Plan of Care Dates 02/11/21-05/06/21 Insurance Information Medicare Setting Treatment Setting Outpatient Care Visit Type Note Type Treatment Note General Information General Information Patient is a 70 year-old, right hand dominant female referred to outpatient OT by PCP, Jose Bolanos MD, secondary to RA (concerns re: hands/ wrists). PMH: Significant for allergies; RA; back pain; neuropathy (distal LEs). Patient reported that she is currently receiving outpatient PT to address B knee pain/ discomfort (patellar tracking) . h/o 3 trigger finger releases in 2016 (R 3rd digit; L 3rd and 4th digits). - Subjective Identification Type Name Identification Reconciled With Medical Record Observations I don't have an appointment with Dr. Dial until May. That was the first opening that he had. Mer adjusted the night splint on Tuesday and it isn't bothering the adjacent finger anymore. I still haven' t found a day splint that works for that finger per Ashlie. She mentioned kinesiotape as another option . Patient/Caregiver Compliance with Home Excellent Exercise Program Comment w/ use of written and visual materials - Objective Objective Measurements Please refer to below for progress towards meeting established OT goals. 04/08/21: Saw Mer at [facility]; was provided w/ various splints to rest tendon of R 2nd digit ( night resting splint and various day time splints). Instructed to wear for 4 to 6 weeks. Mer also assisted her w / identifying correct size for night time R Comfort Cool Splint. Prison Goals 1. Ashlie will be modified independent with distal UE home exercise program utilizing provided written and visual instructions from therapist. 7/14/21= 25% met 2. Ashlie will verbalize 100% understanding of joint protection principles. 04/08/21 = 50% met 3. Ashlie will present with increased ability to successfully engage in meaningful activities d/t improvements in bilateral wrist strength; 4/5 MMT L wrist extension; 4/5 MMT R wrist extension; 4/[address]; 4/5 MMT L wrist UD; 4/[address]; 4/5 MMT R wrist UD. GOALS MET Able to verbally identify 2 different conservative pain management techniques that she can utilize in the home to manage symptoms. *MET 03/12/21 - Treatment 4 Descriptor Ultrasound. 2.0 w/cm2. 20% duty cycle. Address inflammation. Applied to radial R wrist. Skin intact pre- and post- treatment. 3 Descriptor Gentle friction massage. 2 Descriptor ROM Thumb ROM. Thumb extension. Wrist flexion/extension Exercises 7 Descriptor Wrist stabilization. Balance disc. CW and CCW. Forward/back. Rotation of disc . 6 Descriptor Wrist extension. 1#DB. Bilateral wrists. Dowel w/ rope. 5 Descriptor Neuro re-training. Mohawk stress balls - golf ball use. CW and CCW. Leap frog forwards/backwards. Single Golf Ball. Push-up. Opposition. [place] shooter. Finger tip/pad coordination. 1 Descriptor HEP/POC. Upgraded distal UE strengthening exrecises to use of 2.2# versus 3.3# spherical ball; recommended dropping of ball between hands, ball twist in CW and CCW directions , and sustained hold up to 5 seconds. Patient wrote personal notes given that therapist did not have images/ written details to provide for these specific exercises. Recommended considering increasing repetitions w/ thumb exercises if unable to increase resistance (2 rubberbands/thicker rubberband ). Ashlie denied any questions . - Assessment Assessment of Improvement (+) compliance with home exercise program; upgraded HEP . Patient denied questions. Patient to see orthopedic hand specialist/surgeon for consult of R 2nd digit in May. Recommend transitioning to HEP. - Plan Additional Therapy Recommendations Transition to HEP
--- NOTE | 2021-04-23 14:59 | OT.OP.DC ---
Visit Care Team Role Provider Type Jose Bolanos DO Attending Provider Physician Primary Care Provider Referring Provider Address: [address] [place] [address], [id number] Email: OT Outpatient OT Outpatient Adult Evaluation Start: 02/11/21 13:32 Freq: Status: Active Protocol: Document 02/11/21 15:44 AMS (Rec: 02/11/21 15:56 AMS [id number]) General Information Session Time Visit Start Time 10:30 Visit Stop Time 11:28 Total Visit Minutes 58 Visit Information Visit Number 10/05 Plan of Care Dates 02/11/21-05/06/21 Insurance Information Medicare Setting Treatment Setting Outpatient Care Visit Type Note Type Initial Evaluation Referral Referring Physician Jose Bolanos MD Reason for Referral RA Identification Identification Confirmed Yes Goals Treatment Treatment Initiated home exercise program. Instructed in passive wrist stretches; visual and written instructions were provided. These will be scanned into electronic medical records by front desk coordinator staff. Instructed in passive digit stretch on TT into extension (flat palm on TT); instructed in avoidance of tight pinches (joint protection principle). Instructed in use of ball for distal UE stabilization exercise. Ashlie denied any questions. Paraffin bath to distal UEs; skin intact pre- and post- treatment. Photographic Intelligence Officer Goals Photographic Intelligence Officer Goals 1. Ashlie will be modified independent with distal UE home exercise program utilizing provided written and visual instructions from therapist. 2. Ashlie will verbalize 100% understanding of joint protection principles. 3. Ashlie will be able to verbally identify 2 to 3 different conservative pain management techniques that she could utilize in the home to manage presenting symptoms. 4. Ashlie will present with increased ability to successfully engage in meaningful activities d/t improvements in bilateral wrist strength; 4/5 MMT L wrist extension; 4/5 MMT R wrist extension; 4/[address]; 4/5 MMT L wrist UD; 4/[address]; 4/5 MMT R wrist UD. Assessment/Plan Assessment Treatment Assessment Patient is a 70 year-old, right hand dominant female referred to outpatient OT by PCP, Jose Bolanos MD, secondary to RA (concerns re: hands/ wrists). PMH: Significant for allergies; RA; back pain; neuropathy (distal LEs). Patient reported that she is currently receiving outpatient PT to address B knee pain/ discomfort (patellar tracking) . h/o 3 trigger finger releases in 2016 (R 3rd digit; L 3rd and 4th digits). Patient Goals: Address weakness; improve/ maintain ability to engage in meaningful activities (musical interests) Evaluation Findings: Denied use of splints during the day. Patient reports ability to complete functional tasks; w/ some difficulty managing smaller buttons. Patient reports that completes meal preparation and that she has given up knitting and spinning yarn in favor of continuing with musical pursuits. Ashlie verbalized desire to be able to play 3 hours of music per day; currently she is able to play 2 hours a day with breaks . She has made changes to approach to playing, choice of musical instruments, and hand /hold positioning of instruments. Patient completed Pain Assessment Grid and indicated 3/10 relative to dorsal digits bilaterally, 4/ 10 relative to L thumb; 5/10 relative to CMCJ pain, and 6 to 7/10 relative to dorsal bilateral wrist pain. See electronic medical records for specifics. Ashlie obtained a score of 52.3 on QuickDASH UE Outcome Measure; score of 50.0 on QuickDASH Work Module; and score of 62.5 on QuickDASH Sports/Performing Arts Module. Goniometer Measurements: 0- 50 degrees L wrist flex; 0-75 degrees L wrist ext; 0-[address]; 0-30 degrees L UD. 0-30 degrees R wrist flex; 0-70 degrees R wrist ext; 0- [address] pain- free (0-15 degrees available); 0-15 degrees R wrist UD pain- free (0-30 degrees available). WFL pain-free active supination/pronation. Decreased strength of bilateral wrists. Ashlie would likely benefit from outpatient OT to address these areas in order to maximize her success with active participation in meaningful activities. Plan Comment 12 weeks Treatment Frequency Once a Week Therapeutic Contents Active Range of Motion, Adaptive Equipment Education, Client Education,Cognitive Skills Development,Functional Activities,Home Exercise Program,Joint Protection, Manual Therapy, Neurodevelopment Treatment, Stretching/Flexibility Activities,Therapeutic Activities,Therapeutic Exercises,Modalities Additional Types of Modalities Hot pack/Cold pack/Paraffin bath/Ultrasound Sensory Assessment Sensory Profile2 Functional Wrist/Hand Scan Hand Side OT Outpatient Muscle Testing Start: 02/11/21 13:32 Freq: Status: Active Protocol: Document 04/23/21 14:46 AMS (Rec: 04/23/21 14:58 AMS [id number]) Wrist Strength Wrist Manual Muscle Testing Left Flexion (C7) 5 Normal Extension (C6) 5 Normal Ulnar Deviation 5 Normal Radial Deviation 5 Normal Right Flexion (C7) 5 Normal Extension (C6) 4 Good Ulnar Deviation 5 Normal Radial Deviation 4 Good Bike Shop Manager/Hand Strength Bike Shop Manager/Hand Strength Left Bike Shop Manager Dynamometer II 47.3 Right Bike Shop Manager Dynamometer II 43.3 OT Outpatient Treatment Note - Adult Start: 02/11/21 13:32 Freq: Status: Active Protocol: Document 04/23/21 14:46 AMS (Rec: 04/23/21 14:58 AMS [id number]) OT Outpatient Adult Treatment Note Session Time Visit Start Time 13:30 Visit Stop Time 14:25 Total Visit Minutes 55 Visit Information Visit Number 07/14 --> visit KX modifier Plan of Care Dates 02/11/21-05/06/21 Insurance Information Medicare Setting Treatment Setting Outpatient Care Visit Type Note Type Treatment Note General Information General Information Patient is a 70 year-old, right hand dominant female referred to outpatient OT by PCP, Jose Bolanos MD, secondary to RA (concerns re: hands/ wrists). PMH: Significant for allergies; RA; back pain; neuropathy (distal LEs). Patient reported that she is currently receiving outpatient PT to address B knee pain/ discomfort (patellar tracking) . h/o 3 trigger finger releases in 2016 (R 3rd digit; L 3rd and 4th digits). - Subjective Identification Type Name Identification Reconciled With Medical Record Observations Mod independent with home exercise program. Pain Assessment Grid completed; indicated 2-3 out of 10 on pain scale relative to R CMCJ; 2 out of 10 on pain scale relative to R MPJ; and 3-4 out of 10 on pain scale relative to R 2nd PIPJ. QuickDASH UE Outcome Measure Score = 29.55; QuickDASH Sports/Performing Arts Module Score = 25.0. QuickDASH and Pain Assessment Grid to be scanned into electronic medical records. Patient/Caregiver Compliance with Home Excellent Exercise Program Comment w/ use of written and visual materials - Objective Objective Measurements Please refer to below for progress towards meeting established OT goals. 04/08/21: Saw Mer at [facility]; was provided w/ various splints to rest tendon of R 2nd digit ( night resting splint and various day time splints). Instructed to wear for 4 to 6 weeks. Mer also assisted her w / identifying correct size for night time R Comfort Cool Splint. Intermediate Goals ALL GOALS MET OF 04/23/21 Ashlie will be modified independent with distal UE home exercise program utilizing provided written and visual instructions from therapist. Ashlie will verbalize 100% understanding of joint protection principles. Ashlie will present with increased ability to successfully engage in meaningful activities d/t improvements in bilateral wrist strength; 4/5 MMT L wrist extension; 4/5 MMT R wrist extension; 4/[address]; 4/5 MMT L wrist UD; 4/[address]; 4/5 MMT R wrist UD. GOALS MET Able to verbally identify 2 different conservative pain management techniques that she can utilize in the home to manage symptoms. *MET 03/12/21 - Treatment 4 Descriptor Ultrasound. 2.0 w/cm2. 20% duty cycle. Address inflammation. Applied to radial R wrist. Skin intact pre- and post- treatment. 3 Descriptor Gentle friction massage. 2 Descriptor ROM Thumb ROM. Thumb extension. Wrist flexion/extension Exercises 7 Descriptor Wrist stabilization. Balance disc. CW and CCW. Forward/back. Rotation of disc . 5 Descriptor Neuro re-training. 1 Descriptor HEP/POC. Reviewed home exercise program. Recommended considering home use of 4.4# weighted spherical ball. Provided with latex free TB #2 and TB #3 for home use for home exercise program. All questions were answered. - Assessment Assessment of Improvement (+) compliance with home exercise program. Patient has met all goals for outpatient OT at this time. Recommend d/c to HEP. Patient to see orthopedic hand specialist/ surgeon for consult of R 2nd digit in May. Recommend transitioning to HEP. - Plan Therapy Recommendations Discharge from Occupational Therapy
== END 2021-04-24 08:47 | disposition home or self-care (01) ==
LOC: OT 13:30
PROVIDERS: PCP Family Medicine; Referring Provider Family Medicine; Visit Provider Family Medicine
DX: M06.00 Rheumatoid arthritis without rheumatoid factor, unspecified site (principal); R53.1 Weakness; R27.8 Other lack of coordination
CPT/HCPCS: 97018; 97035; 97110; 97140; 97165; 97530

== ENCOUNTER → 2021-05-21 14:31 | Outpatient (CLI) | payer MEDICARE, OTHER, SELFPAY ==
--- NOTE | 2021-05-21 | DI.MG.S_ITS ---
BILATERAL DIGITAL SCREENING MAMMOGRAM 3D/2D WITH CAD: 05/21/2021 CLINICAL: Routine screening. Family history of breast cancer. Comparison is made to exams dated: 05/16/2020 mammogram, 05/15/2019 mammogram, and 04/27/2018 mammogram - [facility]. There are scattered fibroglandular elements in both breasts. Current study was also evaluated with a Computer Aided Detection (CAD) system. There are benign calcifications in both breasts. No significant masses, calcifications, or other findings are seen in either breast. There has been no significant interval change. IMPRESSION: BENIGN There is no mammographic evidence of malignancy. A 1 year screening mammogram is recommended. This exam was interpreted at Station ID: [id number]. NOTE: For mammograms, a report in lay terms will be sent to the patient. Approximately 15% of breast malignancies will not be visualized mammographically. In the management of a palpable breast mass, a negative mammogram must not discourage biopsy of a clinically suspicious lesion. Electronically Signed By: Genaro frost/chely:05/21/2021 15:10:33 letter sent: Normal Exam ACR BI-RADS Category 2: Benign Finding(s) 3342F
== END ==
PROVIDERS: PCP Family Medicine; Referring Provider Family Medicine; Visit Provider Family Medicine
DX: Z12.31 Encounter for screening mammogram for malignant neoplasm of breast (principal); Z80.3 Family history of malignant neoplasm of breast
CPT/HCPCS: 77063; 77067

== ENCOUNTER → 2021-07-15 06:56 | Outpatient (CLI) | payer MEDICARE, OTHER, SELFPAY ==
[2021-07-15 08:09] LABS: Add Manual Diff / Slide Review NO; Basophils Absolute Auto 0 /uL (0-100); Basophils Percent Auto 1.1 % (0-2); Eosinophils Absolute Auto 200 /uL (0-450); Eosinophils Percent Auto 4.3 % (2-4); Hematocrit 46.1 % (36-46); Lymphocytes Absolute Auto 1900 /uL (1100-4500); Lymphocytes Percent Auto 43.4 % (25-40); Mean Corpuscular HGB Conc 34.6 % (30-36); Mean Corpuscular Hemoglobin 30.8 PG (26-34); Mean Corpuscular Volume 88.9 fL (80-100); Monocytes Absolute Auto 300 /uL (0-900); Monocytes Percent Auto 6.3 % (3-14); Neutrophils Absolute Auto 1900 /uL (1500-7000); Neutrophils Percent Auto 44.9 % (50-75); Platelet Count 155 X10^3/uL (150-400); Red Blood Cell Count 5.19 X10^6/uL (4.0-5.2); Red Cell Distribution Width 13.3 % (11.6-14.8); White Blood Cell Count 4.3 X10^3/uL (4.5-11.0)
[2021-07-15 08:11] LABS: Alanine Aminotransferase 69 IU/L (<35); Albumin 4.6 g/dL (3.5-5.0); Albumin Globulin Ratio 1.6 (1.0-2.8); Alkaline Phosphatase 100 U/L (38-126); Aspartate Aminotransferase 46 IU/L (14-36); BUN Creatinine Ratio 21.9 (6-22); Bilirubin Total 1.3 mg/dL (0.2-1.3); Blood Urea Nitrogen 16 mg/dL (7-17); Calcium 9.6 mg/dL (8.4-10.2); Carbon Dioxide 28 mmol/L (22-32); Chloride 104 mmol/L (98-107); Cholesterol 204 mg/dL (140-199); Estimated Glomerular Filt Rate > 60.0 mL/min (>60); Globulin 2.8 g/dL (1.7-4.1); Glucose 93 mg/dL (80-110); HDL Cholesterol 59 mg/dL (40-60); HEMOLYSIS < 15 (0-50); LDL Cholesterol Calculated 120 mg/dL (<100); Potassium 3.9 mmol/L (3.4-5.1); Sodium 140 mmol/L (137-145); Total Protein 7.4 g/dL (6.3-8.2); Triglycerides 127 mg/dL (35-150)
[2021-07-15 08:42] LABS: Free T3, Triiodothyronine Free 3.61 pg/mL (2.77-5.27); Free T4, Direct Thyroxine 1.11 ng/dL (0.78-2.19)
[2021-07-15 08:56] LABS: Thyroid Stimulating Hormone 0.558 uIU/mL (0.47-4.68)
[2021-07-16 19:02] LABS: Anti Thyroglobulin Antibody <1.0 IU/mL (0.0-0.9); Thyroid Peroxidase Antibodies 20 IU/mL (0-34)
== END ==
PROVIDERS: PCP Family Medicine; Referring Provider Family Medicine; Visit Provider Family Medicine
DX: E04.1 Nontoxic single thyroid nodule (principal); L65.9 Nonscarring hair loss, unspecified; E80.4 Gilbert syndrome; M06.00 Rheumatoid arthritis without rheumatoid factor, unspecified site; R20.2 Paresthesia of skin; E78.00 Pure hypercholesterolemia, unspecified
CPT/HCPCS: 36415; 80053; 80061; 84439; 84443; 84481; 85025; 86376; 86800

== ENCOUNTER → 2021-09-30 07:42 | Outpatient (CLI) | payer MEDICARE, OTHER, SELFPAY ==
[2021-09-30 09:11] LABS: Vitamin D 25 Hydroxy (D3) 51.4 ng/mL (30.0-100.0)
[2021-09-30 09:43] LABS: Vitamin B12 929 pg/mL (239-931)
== END ==
PROVIDERS: PCP Family Medicine; Referring Provider Family Medicine; Visit Provider Family Medicine
DX: R20.0 Anesthesia of skin (principal); E80.4 Gilbert syndrome; K31.84 Gastroparesis; E55.9 Vitamin D deficiency, unspecified; R20.2 Paresthesia of skin
CPT/HCPCS: 36415; 82306; 82607

== ENCOUNTER → 2021-10-22 13:49 | Outpatient (CLI) | payer MEDICARE, OTHER, SELFPAY ==
[2021-10-22 14:39] LABS: Alanine Aminotransferase 46 IU/L (<35); Aspartate Aminotransferase 37 IU/L (14-36)
== END ==
PROVIDERS: PCP Family Medicine; Referring Provider Family Medicine; Visit Provider Family Medicine
DX: R74.01 Elevation of levels of liver transaminase levels (principal)
CPT/HCPCS: 36415; 84450; 84460

== ENCOUNTER 2022-01-13 10:42 | Outpatient (RCR) | payer MEDICARE, OTHER, SELFPAY ==
--- NOTE | 2022-01-13 17:15 | PT.OIE ---
Current Diagnoses Polyneuropathy, unspecified (01/13/22) Past Medical History (Last Reviewed 01/10/22 @ 12:03 by Isabella Mrash MD) Abnormal MRI, lumbar spine Actinic keratosis Allergic rhinitis Asthma Bilateral hand pain Bilateral knee pain Bladder prolapse Cervical somatic dysfunction Chronic pain of left ankle Colon polyps (04/2014) Constipation due to slow transit Diaphoresis Disseminated superficial actinic porokeratosis (DSAP) (~08/2017) Eczema Finger pain, right Gastric polyps (04/2014) Gastroparesis GERD (gastroesophageal reflux disease) Hair loss History of Lyme disease History of tonsillectomy (08/09/19) Left-sided low back pain without sciatica Multinodular goiter (~1999) Numbness of toes Paresthesia of both feet Pelvic somatic dysfunction Physical exam, annual Rheumatoid arthritis Rheumatoid arthritis Right hip pain Sacral region somatic dysfunction Screening for breast cancer Segmental and somatic dysfunction of rib cage Sleep apnea Somatic dysfunction of abdominal region Somatic dysfunction of lower extremity Somatic dysfunction of right lower extremity Sore of lower lip Stiff neck Stress incontinence in female SVT (supraventricular tachycardia) (02/2016) Thoracic region somatic dysfunction Thyroid nodule Upper extremity somatic dysfunction Vitamin D deficiency Past Surgical History (Last Reviewed 01/10/22 @ 12:03 by Isabella Marsh MD) History of tonsillectomy (08/09/19) Visit Care Team Role Provider Type Jose Bolanos DO Attending Provider Physician Family Provider Primary Care Provider Referring Provider Specialty: Family Practice Address: [address] [place] [address], [facility] Email: Physical Therapy Initial Evaluation PT-OP-A Visit Information Start: 01/13/22 12:39 Freq: Status: Active Protocol: Document 01/13/22 11:15 DCW (Rec: 01/13/22 12:40 DCW [id number]) Out-Patient Physical Therapy Visit Information Visit Information Visit Type Initial Evaluation Visit Start Time 12:00 Visit Stop Time 12:40 Total Visit Minutes 40 Visit Number 1 Number of ALL SOURCE INTELLIGENCE TECHNICIAN Visits 0 Evaluation Information Evaluation Date 01/13/22 PT-OP-B Current Condition Start: 01/13/22 12:39 Freq: Status: Active Protocol: Document 01/13/22 11:15 DCW (Rec: 01/13/22 17:01 DCW [id number]) Current Condition History of Current Condition Onset Date Long-standing history Current Complaints Peripheral neuropathy History of Current Condition Pt is a 71 year old female presenting with complaints of bilateral LE neuropathy. Pt notes she was told it is secondary to her rheumatoid arthritis. Notes numbness and pain in feet, as well as occasional shooting electrical pain. Does not believe numbness has been affecting her balance. Prior Treatments and Tests Prior history of PT for patellar tracking issues Treatment Goals Patient/Caregiver Goals Find a way to blunt the pain. PT-OP-C Subjective Start: 01/13/22 12:39 Freq: Status: Active Protocol: Document 01/13/22 11:15 DCW (Rec: 01/13/22 17:01 DCW [id number]) OP-PT Subjective Patient Comments Patient Comments I might be a little wobbly with this, but I'm not really sure. I haven't had [place]. OP-PT Pain Assessment Pain Assessment Grid Paper Pain Assessment Grid Completed Yes Location Bilateral Foot Intensity 6 Scale Used Numeric (0 - 10) Description Burning,Shooting PT-OP-D Balance Start: 01/13/22 12:39 Freq: Status: Active Protocol: Document 01/13/22 11:15 DCW (Rec: 01/13/22 17:01 DCW [id number]) OP-PT Balance Assessment Sitting Balance Static Sitting Balance Ability Normal Dynamic Sitting Balance Ability Normal Standing Balance Static Standing Balance Ability Normal Dynamic Standing Balance Ability Normal Balance Tests mCTSIB mCTSIB Position 1 30+ mCTSIB Position 2 30+ mCTSIB Position 3 30+ mCTSIB Position 4 30+ Single Limb Standing Single Limb- Right 30+ Single Limb- Left 30+ Tandem Tandem Standing 30+ bilaterally [place] Fall Scale Copyright Permission PT-OP-F Manual Assessment Start: 01/13/22 12:39 Freq: Status: Active Protocol: Document 01/13/22 11:15 DCW (Rec: 01/13/22 17:01 DCW [id number]) Manual Assessments Joint Mobility Assessment Joint Mobility Assessment Ankle joint mobility WNL PT-OP-H Neuro Start: 01/13/22 12:39 Freq: Status: Active Protocol: Document 01/13/22 11:15 DCW (Rec: 01/13/22 12:42 DCW [id number]) Sensation Evaluation Gross Sensation Gross Sensation Left LE Impaired,Right LE Impaired Sensation Description Numbness,Tingling,[place],Coldness Location Details Right Foot Light Touch Impaired Sharp/Dull Impaired Deep Pressure Impaired Hot/Cold Impaired Protective Sensation Intact/Normal Proprioception (Position) Intact/Normal Kinesthesia (Movement) Intact/Normal Left Foot Light Touch Impaired Sharp/Dull Impaired Deep Pressure Impaired Hot/Cold Impaired Protective Sensation Intact/Normal Proprioception (Position) Intact/Normal Kinesthesia (Movement) Intact/Normal PT-OP-K Range of Motion Start: 01/13/22 17:01 Freq: Status: Active Protocol: Document 01/13/22 11:15 DCW (Rec: 01/13/22 17:05 DCW [id number]) Ankle and Foot Goniometric Range of Motion Ankle and Foot Right Active Testing Position Sitting Dorsiflexion with Knee Flexed 10 Plantarflexion 50 Inversion 32 Eversion 12 Left Active Testing Position Sitting Dorsiflexion with Knee Flexed 7 Plantarflexion 50 Inversion 35 Eversion 10 PT-OP-M Strength Start: 01/13/22 12:39 Freq: Status: Active Protocol: Document 01/13/22 11:15 DCW (Rec: 01/13/22 17:05 DCW [id number]) Ankle/Foot Strength Ankle and Foot Manual Muscle Testing Bilateral Dorsiflexion (L4) 5 Normal Plantarflexion (S1) 5 Normal Inversion 5 Normal Eversion (S1) 5 Normal PT-OP-T Assessment and Plan Start: 01/13/22 12:39 Freq: Status: Active Protocol: Document 01/13/22 11:15 DCW (Rec: 01/13/22 17:15 DCW [id number]) Physical Therapy Assessment Evaluation Complexity Number of Personal Factors/Comorbidities 1-2 Number of Body Systems Impaired 1-2 Clinical Presentation at Evaluation Stable Impairments Impairments Sensation Assessment Summary Assessment Pt presents with signs and symptoms consistent with referring diagnosis of peripheral neuropathy. Pt shows decreased temperature sensation, impaired light touch sensation, and impaired sharp/dull differential. Pt does exhibit 10 g protective sensation bilaterally, as well as proprioception and kinesthesia. Pt shows great ankle strength, ankle ROM is WNL, and pt displays no concerning deficits with balance, despite decreased sensation. Unfortunately, there is minimal succcess with Physical Therapy addressing neuropathy which is strictly affecting sensory input. Pt would be unlikely to benefit from any skilled intervention at this time. If pt's symptoms progress, and lead to weakness, deconditioning, imbalance, or stiffness, she would be much more likely to find benefit with PT. Patient verbalized understanding of this, and was invited to return to PT if she begins to exhibit any of these symptoms. Pt will be discharged from physical therapy at this time. Physical Therapy Plan Frequency and Duration Frequency of Treatment 1x/Week Duration of Treatment 1 day Plan of Care Start Date 01/13/22 Plan of Care End Date 01/14/22 Next Visit Focus/Plan Next Note Type Discharge Summary Next Visit Plan No indication for further Physical Therapy
--- NOTE | 2022-01-13 17:15 | PT.OPPOC ---
Physical, Occupational & Speech Therapy At [facility] Current Diagnoses Polyneuropathy, unspecified (01/13/22) Visit Care Team Role Provider Type Jose Bolanos DO Attending Provider Physician Family Provider Primary Care Provider Referring Provider Specialty: Family Practice Address: [address] [place] [address], [id number] Email: Plan Of Care PT-OP-T Assessment and Plan Start: 01/13/22 12:39 Freq: Status: Active Protocol: Document 01/13/22 11:15 DCW (Rec: 01/13/22 17:15 DCW [id number]) Physical Therapy Assessment Evaluation Complexity Number of Personal Factors/Comorbidities 1-2 Number of Body Systems Impaired 1-2 Clinical Presentation at Evaluation Stable Impairments Impairments Sensation Assessment Summary Assessment Pt presents with signs and symptoms consistent with referring diagnosis of peripheral neuropathy. Pt shows decreased temperature sensation, impaired light touch sensation, and impaired sharp/dull differential. Pt does exhibit 10 g protective sensation bilaterally, as well as proprioception and kinesthesia. Pt shows great ankle strength, ankle ROM is WNL, and pt displays no concerning deficits with balance, despite decreased sensation. Unfortunately, there is minimal succcess with Physical Therapy addressing neuropathy which is strictly affecting sensory input. Pt would be unlikely to benefit from any skilled intervention at this time. If pt's symptoms progress, and lead to weakness, deconditioning, imbalance, or stiffness, she would be much more likely to find benefit with PT. Patient verbalized understanding of this, and was invited to return to PT if she begins to exhibit any of these symptoms. Pt will be discharged from physical therapy at this time. Physical Therapy Plan Frequency and Duration Frequency of Treatment 1x/Week Duration of Treatment 1 day Plan of Care Start Date 01/13/22 Plan of Care End Date 01/14/22 Next Visit Focus/Plan Next Note Type Discharge Summary Next Visit Plan No indication for further Physical Therapy Plan of Care Dates Plan of Care Start Date 01/13/22 Plan of Care End Date 01/14/22 Electronically Signed by: Luis Singh, PT 01/13/22 0143 If you are in agreement with this Plan of Care, please return a signed and dated copy. I have reviewed this Plan of Care and certify that the skilled therapy services above are required to meet the patient?s needs. Physician Signature Date Printed Name and Credentials Clinical Instructor Signature Printed Name and Credentials
== END 2022-01-14 08:41 ==
LOC: PHYS 10:42
PROVIDERS: Family Provider Family Medicine; PCP Family Medicine; Referring Provider Family Medicine; Visit Provider Family Medicine
DX: G62.9 Polyneuropathy, unspecified (principal)
CPT/HCPCS: 97161

== ENCOUNTER → 2022-05-22 09:55 | Outpatient (CLI) | payer MEDICARE, OTHER, SELFPAY ==
--- NOTE | 2022-05-22 | DI.MG.S_ITS ---
BILATERAL DIGITAL SCREENING MAMMOGRAM 3D/2D WITH CAD: 05/22/2022 CLINICAL: Routine screening. Family history of breast cancer. Comparison is made to exams dated: 05/21/2021 mammogram, 05/16/2020 mammogram, 05/15/2019 mammogram, and 02/07/2015 mammogram - [facility]. There are scattered areas of fibroglandular density in both breasts (category b / 25%-50% glandular tissue). Current study was also evaluated with a Computer Aided Detection (CAD) system. There are benign calcifications in both breasts. No significant masses, calcifications, or other findings are seen in either breast. There has been no significant interval change. IMPRESSION: BENIGN There is no mammographic evidence of malignancy. A 1 year screening mammogram is recommended. Based on the Tyrer Cuzick model (a risk assessment model) the patient's lifetime risk is 3.5% and her 10 year risk is 2.2%. According to the ACR, ACS, and NCCN guidelines, an annual breast MRI exam along with mammogram is recommended if the patient's lifetime risk is 20% or greater. This exam was interpreted at Station ID: [id number]. NOTE: For mammograms, a report in lay terms will be sent to the patient. Approximately 15% of breast malignancies will not be visualized mammographically. In the management of a palpable breast mass, a negative mammogram must not discourage biopsy of a clinically suspicious lesion. Electronically Signed By: Genaro frost/chely:05/24/2022 07:16:22 letter sent: Normal Exam ACR BI-RADS Category 2: Benign Finding(s) 3342F
== END ==
PROVIDERS: Family Provider Family Medicine; PCP Family Medicine; Referring Provider Family Medicine; Visit Provider Family Medicine
DX: Z12.31 Encounter for screening mammogram for malignant neoplasm of breast (principal); Z80.3 Family history of malignant neoplasm of breast
CPT/HCPCS: 77063; 77067

== ENCOUNTER → 2022-09-01 19:38 | Outpatient (CLI) | payer MEDICARE, OTHER, SELFPAY ==
--- NOTE | 2022-09-01 19:40 | DI.MRI.S_ITS ---
PROCEDURE: MR ANKLE LT WO CON INDICATIONS: PAIN IN LEFT ANKLE TECHNIQUE: Noncontrast sagittal T1 spin echo and T2 fast spin echo with fat saturation, axial proton density fast spin echo and T2 fast spin echo with fat saturation, coronal T1 spin echo and T2 fast spin echo with fat saturation through the ankle/hindfoot. COMPARISON: None. FINDINGS: Image quality: Excellent. Bones and joints: Mild midfoot and hindfoot joint osteoarthritic changes are seen with joint space narrowing and subchondral sclerosis. No bone marrow contusions or fractures. No hindfoot coalitions. No osteochondral injuries of the talar dome. small amount of tibiotalar joint effusion is seen, no gross loose bodies. Medial structures: The posterior tibialis, flexor digitorum longus, and flexor hallucis longus tendons are intact. The posterior tibial neurovascular bundle appears normal within the tarsal tunnel, without extrinsic mass effect. The deltoid ligament and spring ligament are mildly thickened. Lateral structures: The anterior talofibular is mildly thickened with intrasubstance T2 hyperintense signal. The calcaneofibular, and posterior talofibular ligaments appear intact. More superiorly, the anterior and posterior tibiofibular ligaments appear intact, as is the intermalleolar ligament. The tibiofibular syndesmosis is normal in width at 2 mm or less. The peroneus longus and brevis tendons demonstrate normal location and morphology. Adjacent bony peroneal tubercle and retrotrochlear prominence are normal in size. The sinus tarsi demonstrates normal fatty signal, without edema, fibrosis, or cyst formation. Visualized sinus tarsi components (cervical ligament, interosseous talocalcaneal ligament, roots of the inferior extensor retinaculum) appear normal. The calcaneonavicular and calcaneocuboid components of the bifurcate ligament appear intact. The dorsal calcaneocuboid ligament appears intact. Anterior structures: The tibialis anterior, extensor hallucis longus, and extensor digitorum longus tendons appear intact. The dorsal talonavicular ligament appears intact. Posterior and plantar structures: Very mild thickening of distal Achilles tendon at its posterior calcaneal insertion is seen suggestive of very low-grade tendinosis. Medial and lateral bands of the plantar fascia are mildly thickened. Small plantar calcaneal enthesophyte is also seen. No abductor digiti quinti muscle atrophy to suggest Ovalle neuropathy. IMPRESSION: 1. Mild midfoot and hindfoot joint osteoarthritis. No fracture or dislocation. No osteochondral injuries of talar dome. Small joint effusion, no gross loose bodies. 2. Very mild distal Achilles tendinosis at its posterior calcaneal insertion. No Achilles tendon rupture. 3. Mildly thickened plantar fascia at its calcaneal insertion with small plantar calcaneal enthesophyte concerning for low-grade plantar fasciitis. 4. Extensor, flexor, and peroneus tendons are intact. 5. Low-grade medial ankle ligament sprain. Low-grade sprain/intrasubstance partial-thickness tear involving anterior talofibular ligament. Dictated by: Tapan Morfin M.D. on 09/02/2022 at 9:12 Approved by: Tapan Morfin M.D. on 09/02/2022 at 9:18
== END ==
PROVIDERS: Family Provider Family Medicine; PCP Family Medicine; Referring Provider Podiatrist; Visit Provider Podiatrist
DX: S93.492A Sprain of other ligament of left ankle, initial encounter (principal); M19.072 Primary osteoarthritis, left ankle and foot; M25.572 Pain in left ankle and joints of left foot
CPT/HCPCS: 73721

== ENCOUNTER → 2022-12-17 07:41 | Outpatient (CLI) | payer MEDICARE, OTHER, SELFPAY ==
[2022-12-17 08:59] LABS: Add Manual Diff / Slide Review NO; Basophils Absolute Auto 100 /uL (0-100); Basophils Percent Auto 1.3 % (0-2); Eosinophils Absolute Auto 200 /uL (0-450); Eosinophils Percent Auto 5.4 % (2-4); Hemoglobin 15.7 g/dL (12.0-16.0); Lymphocytes Absolute Auto 1900 /uL (1100-4500); Lymphocytes Percent Auto 46.7 % (25-40); Mean Corpuscular HGB Conc 34.9 % (30-36); Mean Corpuscular Volume 88.7 fL (80-100); Monocytes Absolute Auto 300 /uL (0-900); Monocytes Percent Auto 6.5 % (3-14); Neutrophils Absolute Auto 1600 /uL (1500-7000); Neutrophils Percent Auto 40.1 % (50-75); Platelet Count 168 X10^3/uL (150-400); Red Blood Cell Count 5.07 X10^6/uL (4.0-5.2); Red Cell Distribution Width 13.2 % (11.6-14.8); White Blood Cell Count 4.1 X10^3/uL (4.5-11.0)
[2022-12-17 10:06] LABS: Alanine Aminotransferase 32 IU/L (<35); Albumin 4.2 g/dL (3.5-5.0); Albumin Globulin Ratio 1.5 (1.0-2.8); Alkaline Phosphatase 124 U/L (38-126); Aspartate Aminotransferase 34 IU/L (14-36); BUN Creatinine Ratio 30.9 (6-22); Bilirubin Total 1.3 mg/dL (0.2-1.3); Blood Urea Nitrogen 21 mg/dL (7-17); Calcium 9.1 mg/dL (8.4-10.2); Carbon Dioxide 30 mmol/L (22-32); Chloride 102 mmol/L (98-107); Cholesterol 190 mg/dL (140-199); Estimated Glomerular Filt Rate > 60 mL/min (>60); Globulin 2.8 g/dL (1.7-4.1); Glucose 86 mg/dL (80-110); HDL Cholesterol 69 mg/dL (40-60); HEMOLYSIS < 15 (0-50); LDL Cholesterol Calculated 103 mg/dL (<100); Potassium 4.2 mmol/L (3.4-5.1); Sodium 138 mmol/L (137-145); Triglycerides 89 mg/dL (35-150)
[2022-12-17 10:18] LABS: Vitamin D 25 Hydroxy (D3) 38.1 ng/mL (30.0-100.0)
== END ==
PROVIDERS: Family Provider Family Medicine; PCP Family Medicine; Referring Provider Family Medicine; Visit Provider Family Medicine
DX: E78.5 Hyperlipidemia, unspecified (principal); E80.4 Gilbert syndrome
CPT/HCPCS: 36415; 80053; 80061; 82306; 85025

== ENCOUNTER → 2023-01-05 13:32 | Outpatient (CLI) | payer MEDICARE, OTHER, SELFPAY ==
--- NOTE | 2023-01-05 | DI.CT.S_ITS ---
PROCEDURE: CT SINUS SCREEN WO CON INDICATIONS: Chronic pansinusitis TECHNIQUE: Noncontrast 3.0 mm axial images acquired from the frontal sinuses to the mid-sella, with coronal and sagittal reformats. For radiation dose reduction, the following was used: automated exposure control, adjustment of mA and/or kV according to patient size. COMPARISON: None. FINDINGS: Image quality: Excellent. Maxillary Sinuses: No bony remodeling or destruction. Naig-ve-sppdcrit mucosal thickening can be seen within the inferior maxillary sinuses. Ethmoid Air Cells: No bony remodeling or destruction. Sinuses are clear. Sphenoid Sinuses: No bony remodeling or destruction. Sinuses are clear. Frontal Sinuses: No bony remodeling or destruction. Sinuses are clear. Ostiomeatal Complexes: The ostiomeatal complexes are patent, yet they are constitutionally narrowed, with bilateral Shakila cells. Miscellaneous: Visualized intra-orbital contents are normal. No carla bullosa or paradoxical turbinate curvature. There is minimal rightward nasal septal deviation. IMPRESSION: Focal maxillary sinus disease, which is improved compared to 2016. The ostiomeatal complexes are patent, yet they are constitutionally narrowed, with bilateral Shakila cells. Dictated by: Ed New M.D. on 01/05/2023 at 14:34 Approved by: Ed New M.D. on 01/05/2023 at 14:35
== END ==
PROVIDERS: Family Provider Family Medicine; PCP Family Medicine; Referring Provider Otolaryngology; Visit Provider Otolaryngology
DX: R51.9 Headache, unspecified (principal); J32.4 Chronic pansinusitis
CPT/HCPCS: 70486

== ENCOUNTER → 2023-01-12 11:40 | Outpatient (CLI) | payer MEDICARE, OTHER, SELFPAY ==
--- NOTE | 2023-01-12 12:05 | DI.DEXA.S_ITS ---
Bone Density Report Name: KAREN BAUTISTA Age: 72 Sex: Female Ethnicity: White Date of : 1950 Indication: postmenopausal; screening for osteoporosis; Referring Provider: JERRY GUERRERO Study: Bone densitometry was performed. Exam Date: January 12, 2023 Accession number: [id number] Bone Density: Region BMD T-score Z-score Classification AP Spine(L1-L4) 1.087 0.4 2.6 Normal Femoral Neck (Left) 0.787 -0.6 1.3 Normal Total Hip (Left) 0.966 0.2 1.8 Normal Femoral Neck (Right) 0.852 0.0 1.9 Normal Total Hip (Right) 0.976 0.3 1.9 Normal Total Hip Mean 0.971 0.3 1.9 Normal World Health Organization criteria for BMD impression classify patients as: Normal (T-score at or above -1.0), Osteopenia (T-score between -1.0 and -2.5), or Osteoporosis (T-score at or below -2.5). 10-year Fracture Risk: FRAX not reported because: All T-scores for Spine Total, Hip Total, Femoral Neck at or above -1.0 Previous Exams: -- Region Exam Age BMD T-score BMD Change BMD Change Date g/cm2 vs Baseline vs Previous -- AP Spine (L1-L4) 01/12/2023 72 1.087 0.4 0.058 (5.6%)# 0.058 (5.6%)# 03/16/2019 68 1.029 -0.2 Total Hip(Left) 01/12/2023 72 0.966 0.2 0.013 (1.3%)# 0.013 (1.3%)# 03/16/2019 68 0.954 0.1 Total Hip(Right) 01/12/2023 72 0.976 0.3 -0.014 (-1.4%)# -0.014 (-1.4%)# 03/16/2019 68 0.990 0.4 -- *Denotes significance at 95% confidence level, LSC for AP Spine = 0.022 g/cm2, LSC for Total Hip = 0.027 g/cm2 # Denotes dissimilar scan types or analysis methods Impression: The patient has normal bone mass. No significant bone loss was observed. Discussion: BONE DENSITY IS ABOVE THE MINIMUM DESIRABLE LEVEL AT ALL SKELETAL SITES TESTED. This patient?s bone mineral density is above the minimum desirable level (T-score -1.0 or better) at all sites measured. The patient should follow a healthful lifestyle (good nutrition with adequate calcium and vitamin D, and appropriate weight-bearing exercise). Follow-Up: Consider repeating this study in 5 years or sooner if there is some new clinical indication. Reported by: JAMES RENTERIA MD on 01/12/2023 12:12:00 PM.
== END ==
PROVIDERS: Family Provider Family Medicine; PCP Family Medicine; Referring Provider Family Medicine; Visit Provider Family Medicine
DX: Z13.820 Encounter for screening for osteoporosis (principal); Z78.0 Asymptomatic menopausal state; M06.9 Rheumatoid arthritis, unspecified; K63.9 Disease of intestine, unspecified
CPT/HCPCS: 77080

== ENCOUNTER 2023-02-19 12:53 | Emergency (ER) | payer MEDICARE, OTHER, SELFPAY ==
[2023-02-19 12:59] VITALS: BP 152/74; PULSE 74; RESP 16; TEMP 37.1; O2SAT 99
--- NOTE | 2023-02-19 12:59 | ED.GENADULT ---
HPI - General Adult General Chief complaint: Recheck/Abnormal Lab/Rx Stated complaint: surgery site bandage wet Time Seen by Provider: 02/19/23 12:59 History of Present Illness HPI narrative: 72-year-old female nonsmoker with noncontributory chronic medical history presents for questions about wound care for a recent surgery on her hand. She had a trigger finger surgery and accidentally got the bandage wet. She has no pain, redness or drainage. She denies any numbness, tingling or weakness and is otherwise well and free of complaint. She is just hoping for someone to lay eyes on the bandage and possibly change it Related Data Home Medications Medication Instructions Recorded Confirmed epinephrine 0.3 mg/0.3 mL 3 ml IM PRN PRN Allergic Reaction 03/26/19 12/31/22 injection, auto-injector multivitamin 1 tab PO DAILY 05/10/19 12/31/22 omega 0-mrb-rxu-fish oil 1,000 mg 2 cap PO DAILY 05/10/19 12/31/22 (120 mg-180 mg) capsule (Fish Oil) polyethylene glycol 3350 17 17 gram PO DAILY 03/07/20 12/31/22 gram/dose oral powder (Miralax) hydroxychloroquine 200 mg tablet 200 mg PO ONCE 11/16/21 12/31/22 albuterol sulfate 90 mcg/actuation inhalation Asthma 12/31/22 12/31/22 breath activated powder inhaler ivermectin 1 % topical cream applic topical Rosacea 12/31/22 12/31/22 loratadine 10 mg tablet 10 mg PO DAILY 12/31/22 12/31/22 Previous Rx's Medication Instructions Recorded Spacer for inhaler #1 ea 02/02/19 zolpidem 6.25 mg tablet,extended 6.25 mg PO BEDTIME PRN insomnia 03/25/20 release,multiphase #30 tabs conjugated estrogens 0.625 mg/gram 0.625 mg vaginal 2XW vaginal 07/06/22 vaginal cream atrophy #30 grams famotidine 20 mg tablet 20 mg PO DAILY #90 tabs 11/01/22 zolpidem 6.25 mg tablet,extended 6.25 mg PO BEDTIME PRN sleep #20 11/01/22 release,multiphase (Ambien CR) tabs diclofenac sodium 1 % topical gel See Rx Instructions .Route 12/31/22 .COMPLEX #900 grams Allergies Allergy/AdvReac Type Severity Reaction Status Date / Time hydrocodone [HYDROCODONE] Allergy Intermediate ITCHY, Verified 12/31/22 09:51 NAUSEA, SOB sodium lauryl sulfate Allergy Unknown Rash Verified 12/31/22 09:51 Proton Pump Inhibitors AdvReac Severe Diarrhea - Verified 12/31/22 09:51 [PROTON PUMP INHIBITORS] severe cetirizine [CETIRIZINE] AdvReac Intermediate insomnia, Verified 12/31/22 09:51 nightmares fexofenadine [From DILAN] AdvReac Intermediate UNABLE TO Verified 12/31/22 09:51 SLEEP ENOUGH TO DISRUPT LIFE fluorouracil [From Efudex] AdvReac Intermediate depression Verified 12/31/22 09:51 and brain fogginess hyoscyamine AdvReac Intermediate Insomnia Verified 12/31/22 09:51 Latex, Natural Rubber AdvReac Intermediate Skin Verified 12/31/22 09:51 redness magnesium citrate AdvReac Intermediate Nausea, Verified 12/31/22 09:51 stomach pain montelukast [MONTELUKAST] AdvReac Intermediate Anxiety Verified 12/31/22 09:51 palpitations rabeprazole [From ACIPHEX] AdvReac Mild Headaches Verified 12/31/22 09:51 Dry throat Review of Systems Review of Systems Narrative: GENERAL: Denies chills, fatigue, malaise, fever, sweats. HEENT: Denies sinus pain, ear pain, sore throat, difficulty swallowing, dizziness. RESPIRATORY: Denies dyspnea, cough, wheezing, hemoptysis, sputum. CARDIOVASCULAR: Denies chest pain, palpitations, orthopnea, edema, GASTROINTESTINAL: Denies nausea, vomiting, abdominal pain, diarrhea, constipation, melena. : Denies dysuria, frequency, incontinence, hematuria, urinary retention. MUSCULOSKELETAL: See HPI SKIN: See HPI NEUROLOGIC: Denies weakness, headache, numbness, change in speech, confusion, seizures, incoordination. PSYCHIATRIC: No concerning psychosocial issues. 12 point review of systems is negative except for those stated above Patient History Medical History Abnormal MRI, lumbar spine Actinic keratosis Allergic rhinitis Asthma Bilateral hand pain Bilateral knee pain Cervical somatic dysfunction Chronic pain of left ankle Colon polyps (04/2014) Constipation due to slow transit Diaphoresis Disseminated superficial actinic porokeratosis (DSAP) (~08/2017) Eczema Finger pain, right Gastric polyps (04/2014) Gastroparesis GERD (gastroesophageal reflux disease) Hair loss History of Lyme disease Left-sided low back pain without sciatica Mild hyperlipidemia Multinodular goiter (~1999) Numbness of toes Paresthesia of both feet Pelvic somatic dysfunction Rapid time-zone change Rheumatoid arthritis Rheumatoid arthritis Right hip pain Sacral region somatic dysfunction Segmental and somatic dysfunction of rib cage Sleep apnea Somatic dysfunction of abdominal region Somatic dysfunction of lower extremity Somatic dysfunction of right lower extremity Sore of lower lip Stiff neck Stress incontinence in female SVT (supraventricular tachycardia) (02/2016) Thoracic region somatic dysfunction Thyroid nodule Upper extremity somatic dysfunction Vitamin D deficiency Surgical History History of tonsillectomy (08/09/19) Family History Father Heart disease Mother Dementia Social History marital status: details: to Mert, lives in [place] number of children: 0 household members: spouse lives independently: Yes caregiver/support person: No housing: house pets and animals: Yes (dog, Nery) education level: college 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 Extraoccular muscles are intact bilaterally. There is no subconjunctival hemorrhage or exudate. CHEST: Lungs are clear to auscultation bilaterally and free of wheezes, rales, or rhonchi. Heart rate is regular rhythm, there are no murmurs, clicks, rubs, or gallops. There is no chest wall tenderness. ABD: Abdomen is soft and nontender. There is no guarding or rebound. Bowel sounds are normal in all 4 quadrants. There is no mass or organomegaly. EXT: Surgical site without drainage, is clean, dry and intact without evidence of dehiscence, surrounding erythema, bandage is slightly moist Mesha's swabbed out by nursing SKIN: Warm, pink, and dry. No erythema or rash Initial Vital Signs Initial Vital Signs: Vital Signs Temperature 98.8 F 02/19/23 12:59 Pulse Rate 74 02/19/23 12:59 Respiratory Rate 16 02/19/23 12:59 Blood Pressure 152/74 H 02/19/23 12:59 Pulse Oximetry 99 02/19/23 12:59 Oxygen Delivery Method Room Air 02/19/23 12:59 Course Vital Signs Vital signs: Vital Signs - 8 hr 02/19/23 12:59 Temperature 98.8 F Pulse Rate 74 Respiratory Rate 16 Pulse Oximetry 99 Oxygen Delivery Method Room Air Discharge Plan Departure Patient Disposition: Home Clinical Impression: Feared complaint without diagnosis, Encounter for wound re-check Instructions: How to Care for a Surgical Wound Activity Restrictions/Additional Instructions: *You have been diagnosed with [reassuring wound check] *What to do: *Please continue to take your regular medications as directed. *Please follow up with your primary care provider in 2-3 days, call for an appointment. Let them know you were seen in the Emergency Department and that we ask that you be seen in follow up. We will electronically transmit a record of today's note if your PCP is in our system *Return to Emergency Department if you should have any new, worsening or concerning symptoms, such as [fever greater than 101 F, shaking chills, worsening pain, persistent vomiting or other bothersome symptoms] Prescriptions: No Action (DME) Spacer for inhaler Qty: 1 0RF Dose Instruction: As directed Rx Instructions: Use as directed with inhaler conjugated estrogens 0.625 mg/gram cream 0.625 mg vaginal 2XW Qty: 30 3RF multivitamin tablet 1 tab PO DAILY omega 3-sve-tfq-fish oil [Fish Oil] 1,000 mg (120 mg-180 mg) capsule 2 cap PO DAILY zolpidem 6.25 mg tablet,ext release multiphase 6.25 mg PO BEDTIME PRN (Reason: insomnia) Qty: 30 3RF hydroxychloroquine 200 mg tablet 200 mg PO ONCE zolpidem [Ambien CR] 6.25 mg tablet,ext release multiphase 6.25 mg PO BEDTIME PRN (Reason: sleep) Qty: 20 0RF famotidine 20 mg tablet 20 mg PO DAILY Qty: 90 3RF ivermectin 1 % cream topical albuterol sulfate 90 mcg/actuation aerosol powdr breath activated inhalation Patient Comments: As needed loratadine 10 mg tablet 10 mg PO DAILY diclofenac sodium 1 % gel See Rx Instructions .ROUTE .COMPLEX Qty: 900 3RF Dose Instruction: APPLY 2 GRAMS TOPICALLY FOUR TIMES A DAY. APPLY TO SINGLE WRIST OR HAND. FOR HAND INCLUDES PALM/FINGERS/BACK OF HAND Rx Instructions: APPLY 2 GRAMS TOPICALLY FOUR TIMES A DAY. APPLY TO SINGLE WRIST OR HAND. FOR HAND INCLUDES PALM/FINGERS/BACK OF HAND epinephrine [EpiPen 2-Niles] 0.3 mg/0.3 mL auto-injector 3 ml IM PRN PRN (Reason: Allergic Reaction) polyethylene glycol 3350 [Miralax] 17 gram/dose powder 17 gram PO DAILY Referrals: Leoncio Bolanos DO [Primary Care Provider] - Stand Alone Forms: Patient Portal/API
== END 2023-02-19 13:11 | disposition home or self-care (01) ==
LOC: ED 13:08
PROVIDERS: Emergency Provider Emergency Medicine; Family Provider Family Medicine; PCP Family Medicine
DX: Z98.890 Other specified postprocedural states (principal)
CPT/HCPCS: 99281

== ENCOUNTER 2023-04-28 21:33 | Emergency (ER) | payer MEDICARE, OTHER, SELFPAY ==
[2023-04-28 21:49] VITALS: BP 155/70; PULSE 114; RESP 20; TEMP 38; O2SAT 98; BMI 21.1
--- NOTE | 2023-04-28 22:00 | DI.RAD.S_ITS ---
PROCEDURE: XR CHEST 1V INDICATIONS: suspected sepsis TECHNIQUE: One view of the chest was acquired. COMPARISON: , , CHEST 2 VIEW, 10/19/2017, 2:16. FINDINGS: Surgical changes and devices: None. Lungs and pleura: Lungs are clear. No pleural effusions or pneumothorax. Mediastinum: Mediastinal contours appear normal. Heart size is normal. Bones and chest wall: No suspicious bony lesions. Overlying soft tissues appear unremarkable. IMPRESSION: 1. No acute cardiopulmonary disease. Dictated by: Nolberto Rodriguez M.D. on 04/28/2023 at 23:49 Approved by: Nolberto Rodriguez M.D. on 04/28/2023 at 23:50
[2023-04-28 22:16] VITALS: PULSE 106; RESP 21; O2SAT 96
[2023-04-28 22:18] VITALS: BP 160/70; PULSE 105; RESP 30; O2SAT 96
[2023-04-28 22:30] VITALS: BP 143/63; PULSE 100; O2SAT 96
[2023-04-28] MEDS: ONDANSETRON 4 MG/2 ML INJ IV (22:39)
[2023-04-28] MEDS: SODIUM CHLORIDE 0.9% 1,000 ML 1000 ML IV (22:39)
[2023-04-28 22:44] LABS: INR 1.2 (0.9-1.3); Prothrombin Time 13.9 SECONDS (10.1-12.7)
[2023-04-28 22:47] LABS: PTT Partial Thromboplastin Tim 29 SECONDS (26-36)
[2023-04-28 22:52] LABS: Lactate (Lactic Acid) 1.3 mmol/L (0.7-2.1)
[2023-04-28 22:57] LABS: Add Manual Diff / Slide Review NO; Basophils Absolute Auto 0 /uL (0-100); Basophils Percent Auto 0.1 % (0-2); Eosinophils Absolute Auto 0 /uL (0-450); Hematocrit 35.4 % (36-46); Hemoglobin 12.5 g/dL (12.0-16.0); Lymphocytes Absolute Auto 500 /uL (1100-4500); Lymphocytes Percent Auto 5.4 % (25-40); Mean Corpuscular HGB Conc 35.4 % (30-36); Mean Corpuscular Hemoglobin 30.8 PG (26-34); Mean Corpuscular Volume 86.9 fL (80-100); Monocytes Absolute Auto 500 /uL (0-900); Monocytes Percent Auto 4.7 % (3-14); Neutrophils Absolute Auto 8700 /uL (1500-7000); Neutrophils Percent Auto 89.8 % (50-75); Platelet Count 236 X10^3/uL (150-400); Red Blood Cell Count 4.07 X10^6/uL (4.0-5.2); Red Cell Distribution Width 13.7 % (11.6-14.8); White Blood Cell Count 9.7 X10^3/uL (4.5-11.0)
[2023-04-28 23:00] VITALS: BP 147/65; PULSE 101; RESP 30; O2SAT 96
[2023-04-28 23:04] LABS: Alanine Aminotransferase 36 IU/L (<35); Albumin 3.8 g/dL (3.5-5.0); Albumin Globulin Ratio 1.2 (1.0-2.8); Alkaline Phosphatase 109 U/L (38-126); Aspartate Aminotransferase 38 IU/L (14-36); Blood Urea Nitrogen 17 mg/dL (7-17); Calcium 8.8 mg/dL (8.4-10.2); Carbon Dioxide 26 mmol/L (22-32); Chloride 101 mmol/L (98-107); Estimated Glomerular Filt Rate > 60 mL/min (>60); Globulin 3.2 g/dL (1.7-4.1); Glucose 138 mg/dL (80-110); HEMOLYSIS < 15 (0-50); Lipase 41 U/L (23-300); Potassium 3.9 mmol/L (3.4-5.1); Sodium 134 mmol/L (137-145)
[2023-04-28 23:21] LABS: Procalcitonin 0.23 ng/mL (<0.5)
[2023-04-28 23:30] VITALS: BP 142/63; PULSE 93; RESP 18; O2SAT 97
[2023-04-29] VITALS (9 sets, daily range): BP systolic 121–147; BP diastolic 58–67; PULSE 91–105; RESP 13–23; TEMP 36.9–38.5; O2SAT 95–98
--- NOTE | 2023-04-29 00:40 | ED_ITS ---
HPI - Nausea/Vomiting/Diarrhea General Chief complaint: Nausea/Vomiting/Diarrhea Stated complaint: fever, vomiting and diarrhea s/p surgery Time Seen by Provider: 04/28/23 22:54 Source: patient Mode of arrival: Ambulatory History of Present Illness HPI Narrative: Patient is a 72-year-old female presenting today with sudden onset nausea vo miting and diarrhea. She reports that she had right total hip arthroplasty last week at [facility]. She is not having any hip pain. No chest pain or shortness of breath. No significant abdominal pain. She is not dizzy or lightheaded. No significant painful or frequent urination. She spiked a fever this afternoon she is been very nauseous. Incision site is not red or erythematous. She is able to ambulate and bear weight. She reports that it was an outpatient procedure she did not see the night in the hospital. Related Data Home Medications Medication Instructions Recorded Confirmed epinephrine 0.3 mg/0.3 mL 3 ml IM PRN PRN Allergic Reaction 03/26/19 12/31/22 injection, auto-injector multivitamin 1 tab PO DAILY 05/10/19 12/31/22 omega 7-ywa-vts-fish oil 1,000 mg 2 cap PO DAILY 05/10/19 12/31/22 (120 mg-180 mg) capsule (Fish Oil) polyethylene glycol 3350 17 17 gram PO DAILY 03/07/20 12/31/22 gram/dose oral powder (Miralax) hydroxychloroquine 200 mg tablet 200 mg PO ONCE 11/16/21 12/31/22 albuterol sulfate 90 mcg/actuation inhalation Asthma 12/31/22 12/31/22 breath activated powder inhaler ivermectin 1 % topical cream applic topical Rosacea 12/31/22 12/31/22 loratadine 10 mg tablet 10 mg PO DAILY 12/31/22 12/31/22 Previous Rx's Medication Instructions Recorded Spacer for inhaler #1 ea 02/02/19 zolpidem 6.25 mg tablet,extended 6.25 mg PO BEDTIME PRN insomnia 03/25/20 release,multiphase #30 tabs conjugated estrogens 0.625 mg/gram 0.625 mg vaginal 2XW vaginal 07/06/22 vaginal cream atrophy #30 grams famotidine 20 mg tablet 20 mg PO DAILY #90 tabs 11/01/22 diclofenac sodium 1 % topical gel See Rx Instructions .Route 12/31/22 .COMPLEX #900 grams zolpidem 6.25 mg tablet,extended 6.25 mg PO BEDTIME PRN sleep #20 02/25/23 release,multiphase (Ambien CR) tabs acyclovir 5 % topical cream 1 applic topical 5XD 4 days #5 04/05/23 grams ondansetron 4 mg disintegrating 4 mg PO Q8H PRN nausea and 04/29/23 tablet vomiting #10 tabs Allergies Allergy/AdvReac Type Severity Reaction Status Date / Time hydrocodone [HYDROCODONE] Allergy Intermediate ITCHY, Verified 12/31/22 09:51 NAUSEA, SOB sodium lauryl sulfate Allergy Unknown Rash Verified 12/31/22 09:51 Proton Pump Inhibitors AdvReac Severe Diarrhea - Verified 12/31/22 09:51 [PROTON PUMP INHIBITORS] severe cetirizine [CETIRIZINE] AdvReac Intermediate insomnia, Verified 12/31/22 09:51 nightmares fexofenadine [From DILAN] AdvReac Intermediate UNABLE TO Verified 12/31/22 09:51 SLEEP ENOUGH TO DISRUPT LIFE fluorouracil [From Efudex] AdvReac Intermediate depression Verified 12/31/22 09:51 and brain fogginess hyoscyamine AdvReac Intermediate Insomnia Verified 12/31/22 09:51 Latex, Natural Rubber AdvReac Intermediate Skin Verified 12/31/22 09:51 redness magnesium citrate AdvReac Intermediate Nausea, Verified 12/31/22 09:51 stomach pain montelukast [MONTELUKAST] AdvReac Intermediate Anxiety Verified 12/31/22 09:51 palpitations rabeprazole [From ACIPHEX] AdvReac Mild Headaches Verified 12/31/22 09:51 Dry throat Review of Systems Review of Systems ROS Unobtainable: All systems reviewed & are unremarkable except as noted in HPI and below Patient History Medical History Abnormal MRI, lumbar spine Actinic keratosis Allergic rhinitis Asthma Bilateral hand pain Bilateral knee pain Cervical somatic dysfunction Chronic pain of left ankle Colon polyps (04/2014) Constipation due to slow transit Diaphoresis Disseminated superficial actinic porokeratosis (DSAP) (~08/2017) Eczema Finger pain, right Gastric polyps (04/2014) Gastroparesis GERD (gastroesophageal reflux disease) Hair loss History of Lyme disease Left-sided low back pain without sciatica Mild hyperlipidemia Multinodular goiter (~2000) Numbness of toes Paresthesia of both feet Pelvic somatic dysfunction Rapid time-zone change Rheumatoid arthritis Rheumatoid arthritis Right hip pain Sacral region somatic dysfunction Segmental and somatic dysfunction of rib cage Sleep apnea Somatic dysfunction of abdominal region Somatic dysfunction of lower extremity Somatic dysfunction of right lower extremity Sore of lower lip Stiff neck Stress incontinence in female SVT (supraventricular tachycardia) (02/2016) Thoracic region somatic dysfunction Thyroid nodule Upper extremity somatic dysfunction Vitamin D deficiency Surgical History History of tonsillectomy (08/09/19) Family History Father Heart disease Mother Dementia Social History marital status: details: to Mert, lives in [place] number of children: 0 household members: spouse lives independently: Yes caregiver/support person: No housing: house pets and animals: Yes (dog, Nery) education level: college 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, 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 Smoking Status: Never smoker Tobacco: How many years used: 1 second hand exposure: Yes alcohol intake: never substance use type: does not use Smoking Status: Never smoker alcohol intake frequency: holidays/special occasions only Substance Use Type: does not use Exam Initial Vital Signs Initial Vital Signs: Vital Signs Temperature 100.4 F H 04/28/23 21:49 Pulse Rate 114 H 04/28/23 21:49 Respiratory Rate 20 04/28/23 21:49 Blood Pressure 155/70 H 04/28/23 21:49 Pulse Oximetry 98 04/28/23 21:49 Oxygen Delivery Method Room Air 04/28/23 21:49 GENERAL: Alert pleasant 72-year-old female and in no acute distress. HEENT: Head atraumatic,EOMI, pupils reactive, face symmetric, dry mucous membranes CARDIOVASCULAR: Regular rate and rhythm without murmurs, rubs or gallops. RESPIRATORY: Breath sounds equal bilaterally, no wheezes rales or rhonchi. ABDOMEN: Soft, nontender. Normoactive bowel sounds all 4 quadrants. No guarding or rebound. No distention EXTREMITIES: Normal range of motion, no clubbing or edema. Neurovascularly intact NEUROLOGICAL: Alert and oriented x4.Normal gait and speech. SKIN: Warm, dry, no laceration, no petechiae, no rashes or lesions. Course Orders Ordered: ED Orders 04/28/23 22:00 XR chest 1V Stat EKG-12 Lead Stat RT Consult Eval and Treat NOW 04/28/23 22:32 Complete Blood Count AUTO DIFF Stat Comprehensive Metabolic Panel Stat Lactate (Lactic Acid) Stat Lipase Stat PTT Partial Thromboplastin Stef Stat Procalcitonin Stat Prothrombin Time INR Stat 04/28/23 23:09 Blood Culture Stat 04/29/23 00:38 Covid-19 + FLU A/B + RSV - PCR Stat Discontinued Medications Acetaminophen (Acetaminophen 325 Mg Tablet) 975 mg PO NOW ONE Stop: 04/29/23 00:59 Last Admin: 04/29/23 01:01 Dose: 975 mg Documented By: TARA Sodium Chloride (Normal Saline 0.9%) 1,000 mls @ 1,000 mls/hr IV BOLUS ONE Stop: 04/28/23 22:58 Last Infusion: 04/29/23 00:15 Dose: 0 mls/hr Documented By: Admin: 04/28/23 22:39 Dose: 1,000 mls/hr Documented By: JACQUELINE Sodium Chloride (Normal Saline 0.9%) 1,000 mls @ 1,000 mls/hr IV BOLUS ONE Stop: 04/29/23 02:23 Last Infusion: 04/29/23 02:30 Dose: 1,000 mls/hr Documented By: Admin: 04/29/23 01:32 Dose: 1,000 mls/hr Documented By: VIDHI Ketorolac Tromethamine (Ketorolac 30 Mg/Ml Vial) 15 mg IV NOW ONE Stop: 04/29/23 00:55 Last Admin: 04/29/23 01:02 Dose: 15 mg Documented By: TARA Ondansetron HCl (Ondansetron 4 Mg/2 Ml Inj) 4 mg IV NOW PRN PRN Reason: Nausea And Vomiting Last Admin: 04/28/23 22:39 Dose: 4 mg Documented By: JACQUELINE Ondansetron HCl (Ondansetron 4 Mg Odt) 4 mg SL NOW PRN PRN Reason: Nausea And Vomiting Ondansetron HCl (Ondansetron 4 Mg Odt Prepack) 1 bottle MISC SEEINSTR ONE Stop: 04/29/23 02:14 Last Admin: 04/29/23 02:19 Dose: 1 bottle Documented By: AP Vital Signs Vital signs: Vital Signs - 8 hr 04/28/23 21:49 04/28/23 22:16 04/28/23 22:18 Temperature 100.4 F H Pulse Rate 114 H 106 H Respiratory Rate 20 21 Blood Pressure 155/70 H 160/70 H Pulse Oximetry 98 96 Oxygen Delivery Method Room Air 04/28/23 22:18 04/28/23 22:30 04/28/23 22:30 Temperature Pulse Rate 105 H 100 H Respiratory Rate 30 H Blood Pressure 143/63 H Pulse Oximetry 96 96 Oxygen Delivery Method 04/28/23 23:00 04/28/23 23:00 04/28/23 23:30 Temperature Pulse Rate 101 H Respiratory Rate 30 H Blood Pressure 147/65 H 142/63 H Pulse Oximetry 96 Oxygen Delivery Method 04/28/23 23:30 04/29/23 00:00 04/29/23 00:00 Temperature Pulse Rate 93 H 98 H Respiratory Rate 18 22 Blood Pressure 146/67 H Pulse Oximetry 97 95 Oxygen Delivery Method 04/29/23 00:27 04/29/23 00:27 04/29/23 00:30 Temperature Pulse Rate 105 H Respiratory Rate 22 Blood Pressure 147/65 H 144/63 H Pulse Oximetry 97 Oxygen Delivery Method 04/29/23 00:30 04/29/23 00:54 04/29/23 01:01 Temperature 101.3 F H 101.3 F H Pulse Rate 97 H Respiratory Rate 13 Blood Pressure Pulse Oximetry 98 Oxygen Delivery Method 04/29/23 01:02 04/29/23 01:00 04/29/23 01:00 Temperature 101.3 F H Pulse Rate 97 H Respiratory Rate 23 Blood Pressure 137/61 Pulse Oximetry 97 Oxygen Delivery Method 04/29/23 01:30 04/29/23 01:30 04/29/23 02:14 Temperature 98.5 F Pulse Rate 91 H Respiratory Rate 22 Blood Pressure 121/58 L Pulse Oximetry 95 Oxygen Delivery Method MDM - Nausea/Vomiting/Diarrhea Lab Data 04/28/23 22:32 04/28/23 22:32 Labs: Lab Results 04/28/23 04/28/2304/28/23 Range/Units 22:32 22:32 22:32 WBC 9.7 (4.5-11.0) X10^3/uL RBC 4.07 (4.0-5.2) X10^6/uL Hgb 12.5 (12.0-16.0) g/dL Hct 35.4 L (36-46) % MCV 86.9 (80-100) fL MCH 30.8 (26-34) PG MCHC 35.4 (30-36) % RDW 13.7 (11.6-14.8) % Plt Count 236 (150-400) X10^3/uL Neut % (Auto) 89.8 H (50-75) % Lymph % (Auto) 5.4 L (25-40) % Fleming % (Auto) 4.7 (3-14) % Eos % (Auto) 0.0 L (2-4) % Baso % (Auto) 0.1 (0-2) % Neut # (Auto) 8700 H (4179-4012) /uL Lymph # (Auto) 500 L (1974-0856) /uL Fleming # (Auto) 500 (0-900) /uL Eos # (Auto) 0 (0-450) /uL Baso # (Auto) 0 (0-100) /uL PT 13.9 H (10.1-12.7) SECONDS INR 1.2 (0.9-1.3) APTT 29 (26-36) SECONDS Sodium 134 L (137-145) mmol/L Potassium 3.9 (3.4-5.1) mmol/L Chloride 101 (98-107) mmol/L Carbon Dioxide 26 (22-32) mmol/L BUN 17 (7-17) mg/dL Creatinine 0.63 (0.52-1.04) mg/dL Estimated GFR > 60 (>60) mL/min BUN/Creatinine Ratio 27.0 H (6-22) Glucose 138 H (80-110) mg/dL Lactate (0.7-2.1) mmol/L Calcium 8.8 (8.4-10.2) mg/dL Total Bilirubin 1.0 (0.2-1.3) mg/dL AST 38 H (14-36) IU/L ALT 36 H (<35) IU/L Alkaline Phosphatase 109 (38-126) U/L Total Protein 7.0 (6.3-8.2) g/dL Albumin 3.8 (3.5-5.0) g/dL Globulin 3.2 (1.7-4.1) g/dL Albumin/Globulin Ratio 1.2 (1.0-2.8) Lipase 41 (23-300) U/L Procalcitonin 0.23 (<0.5) ng/mL SARS-CoV-2 (PCR) (Negative) Influenza A (RT-PCR) (NEGATIVE) Influenza B (RT-PCR) (NEGATIVE) RSV (PCR) (Negative) 04/28/23 04/28/23 Range/Units 22:32 23:07 WBC (4.5-11.0) X10^3/uL RBC (4.0-5.2) X10^6/uL Hgb (12.0-16.0) g/dL Hct (36-46) % MCV (80-100) fL MCH (26-34) PG MCHC (30-36) % RDW (11.6-14.8) % Plt Count (150-400) X10^3/uL Neut % (Auto) (50-75) % Lymph % (Auto) (25-40) % Fleming % (Auto) (3-14) % Eos % (Auto) (2-4) % Baso % (Auto) (0-2) % Neut # (Auto) (2881-3235) /uL Lymph # (Auto) (7770-3760) /uL Fleming # (Auto) (0-900) /uL Eos # (Auto) (0-450) /uL Baso # (Auto) (0-100) /uL PT (10.1-12.7) SECONDS INR (0.9-1.3) APTT (26-36) SECONDS Sodium (137-145) mmol/L Potassium (3.4-5.1) mmol/L Chloride (98-107) mmol/L Carbon Dioxide (22-32) mmol/L BUN (7-17) mg/dL Creatinine (0.52-1.04) mg/dL Estimated GFR (>60) mL/min BUN/Creatinine Ratio (6-22) Glucose (80-110) mg/dL Lactate 1.3 (0.7-2.1) mmol/L Calcium (8.4-10.2) mg/dL Total Bilirubin (0.2-1.3) mg/dL AST (14-36) IU/L ALT (<35) IU/L Alkaline Phosphatase (38-126) U/L Total Protein (6.3-8.2) g/dL Albumin (3.5-5.0) g/dL Globulin (1.7-4.1) g/dL Albumin/Globulin Ratio (1.0-2.8) Lipase (23-300) U/L Procalcitonin (<0.5) ng/mL SARS-CoV-2 (PCR) Negative (Negative) Influenza A (RT-PCR) Flu a negative (NEGATIVE) Influenza B (RT-PCR) Flu b negative (NEGATIVE) RSV (PCR) Negative (Negative) Urine Dip Bedside Urine Glucose Negative Bedside Urine Bilirubin - Negative Bedside Urine Ketone - Negative Urine Specific [place] 1.005 Bedside Urine Occult Blood - Negative Bedside Urine pH 7.5 Bedside Urine Protein - Negative Bedside Urine Urobilinogen - Negative Bedside Urine Nitrite - Negative Bedside Urine Leukocytes - Negative Esterase Imaging Data Chest x-ray: Radiologist's Impression: PROCEDURE:? XR CHEST 1V ? INDICATIONS:? suspected sepsis ? TECHNIQUE:? One view of the chest was acquired.? ? COMPARISON:? [facility], , CHEST 2 VIEW, 10/19/2017, 2:16. ? FINDINGS:? ? Surgical changes and devices:? None.? ? Lungs and pleura:? Lungs are clear.? No pleural effusions or pneumothorax.? ? Mediastinum:? Mediastinal contours appear normal.? Heart size is normal.? ? Bones and chest wall:? No suspicious bony lesions.? Overlying soft tissues appear unremarkable.? ? IMPRESSION:? ? 1.? No acute cardiopulmonary disease. ? ? ? Dictated by: Nolberto Rodriguez M.D. on 04/28/2023 at 23:49 ? ? ECG Data Interpretation: Normal sinus rhythm 109 MN interval 120 QRS [address] changes Q-waves noted in leads only similar to previous EKG in 2016 MDM Narrative Medical decision making narrative: Patient 72-year-old female who presents today with nausea vomiting diarrhea. She is febrile and mildly tachycardic. She does meet SIRS criteria. Sepsis orders have been placed. Fortunately blood work does not show any leukocytosis and organ damage or elevated lactate to suggest severe sepsis or septic shock. She received 2 L of IV fluids anti nausea medication Tylenol and Toradol. She is able to tolerate fluids. Abdomen is soft and nontender. There is absolutely no evidence of joint infection she is able to bear weight no suspicion for septic joint. Symptoms are most consistent with a viral gastroenteritis. She did not have any diarrhea while in the ED. at this time no need for any further workup. She overall appears well. Education on oral rehydration technique. Discharge Plan Departure Patient Disposition: Home Clinical Impression: Gastroenteritis Instructions: DI for Viral Gastroenteritis -- Adult Activity Restrictions/Additional Instructions: 1) You have been diagnosed with gastroenteritis 2) What to do: Drink frequent but small amounts of fluids. I recommend Gatorade or a Gatorade-like product, as it has small amounts of sugar and salts that improve fluid retention. 3) Take medications as directed Zofran 4 mg every 8 hours if needed for nausea or vomiting 4) Follow up with your primary care provider in 2-3 days [and follow up with ortho, urology etc] 5) Return to ER if you should have any new or worsening symptoms such as, unable to hold down fluids despite use of anti-nausea medications and the small volume oral rehydration strategy. Prescriptions: New ondansetron 4 mg tablet,disintegrating 4 mg PO Q8H PRN (Reason: nausea and vomiting) Qty: 10 0RF No Action (DME) Spacer for inhaler Qty: 1 0RF Dose Instruction: As directed Rx Instructions: Use as directed with inhaler conjugated estrogens 0.625 mg/gram cream 0.625 mg vaginal 2XW Qty: 30 3RF zolpidem [Ambien CR] 6.25 mg tablet,ext release multiphase 6.25 mg PO BEDTIME PRN (Reason: sleep) Qty: 20 0RF acyclovir 5 % cream 1 applic topical 5XD 4 Days Qty: 5 3RF multivitamin tablet 1 tab PO DAILY omega 1-ezm-aei-fish oil [Fish Oil] 1,000 mg (120 mg-180 mg) capsule 2 cap PO DAILY zolpidem 6.25 mg tablet,ext release multiphase 6.25 mg PO BEDTIME PRN (Reason: insomnia) Qty: 30 3RF hydroxychloroquine 200 mg tablet 200 mg PO ONCE famotidine 20 mg tablet 20 mg PO DAILY Qty: 90 3RF ivermectin 1 % cream topical albuterol sulfate 90 mcg/actuation aerosol powdr breath activated inhalation Patient Comments: As needed loratadine 10 mg tablet 10 mg PO DAILY diclofenac sodium 1 % gel See Rx Instructions .ROUTE .COMPLEX Qty: 900 3RF Dose Instruction: APPLY 2 GRAMS TOPICALLY FOUR TIMES A DAY. APPLY TO SINGLE WRIST OR HAND. FOR HAND INCLUDES PALM/FINGERS/BACK OF HAND Rx Instructions: APPLY 2 GRAMS TOPICALLY FOUR TIMES A DAY. APPLY TO SINGLE WRIST OR HAND. FOR HAND INCLUDES PALM/FINGERS/BACK OF HAND epinephrine [EpiPen 2-Niles] 0.3 mg/0.3 mL auto-injector 3 ml IM PRN PRN (Reason: Allergic Reaction) polyethylene glycol 3350 [Miralax] 17 gram/dose powder 17 gram PO DAILY Referrals: Leoncio Bolanos DO [Primary Care Provider] - Stand Alone Forms: Patient Portal/API
[2023-04-29] MEDS: ACETAMINOPHEN 325 MG TABLET 975 MG PO (01:01)
[2023-04-29] MEDS: KETOROLAC 30 MG/ML VIAL 15 MG IV (01:02)
[2023-04-29 01:21] LABS: Influenza A - CEPHEID Flu A NEGATIVE (NEGATIVE); Influenza B - CEPHEID Flu B NEGATIVE (NEGATIVE); Respiratory Syncytial Virus Negative (Negative)
[2023-04-29 01:29] LABS: COVID-19 CEPHEID 4-PLEX PCR Negative (Negative)
[2023-04-29] MEDS: SODIUM CHLORIDE 0.9% 1,000 ML 1000 ML IV (01:32)
[2023-04-29] MEDS: ONDANSETRON 4 MG ODT PREPACK 1 BOTTLE MISC (02:19)
== END 2023-04-29 02:29 | disposition home or self-care (01) ==
PROVIDERS: Emergency Provider Emergency Medicine; Family Provider Family Medicine; PCP Family Medicine
DX: K52.9 Noninfective gastroenteritis and colitis, unspecified (principal); R00.0 Tachycardia, unspecified; Z20.822 Contact with and (suspected) exposure to COVID-19
CPT/HCPCS: 0241U; 36415; 71045; 80053; 81003; 83605; 83690; 84145; 85025; 85610; 85730; 87040; 93005; 96361; 96374; 96375; 99284; J1885; J2405

== ENCOUNTER → 2023-05-25 14:23 | Outpatient (CLI) | payer MEDICARE, OTHER, SELFPAY ==
--- NOTE | 2023-05-25 | DI.MG.S_ITS ---
BILATERAL DIGITAL SCREENING MAMMOGRAM 3D/2D WITH CAD: 05/25/2023 CLINICAL: Routine screening. Family history of breast cancer. Comparison is made to exams dated: 05/22/2022 mammogram, 05/21/2021 mammogram, and 05/16/2020 mammogram - [facility]. There are scattered areas of fibroglandular density in both breasts (category b / 25%-50% glandular tissue). Current study was also evaluated with a Computer Aided Detection (CAD) system. There is a new oval focal asymmetry in the left breast at 4 o'clock middle depth. No other significant masses, calcifications, or other findings are seen in either breast. IMPRESSION: INCOMPLETE: NEEDS ADDITIONAL IMAGING EVALUATION The new oval focal asymmetry in the left breast resembles a cyst and is indeterminate. Additional views with possible ultrasound are recommended. Based on the Tyrer Cuzick model (a risk assessment model) the patient's lifetime risk is 3.3% and her 10 year risk is 2.2%. According to the ACR, ACS, and NCCN guidelines, an annual breast MRI exam along with mammogram is recommended if the patient's lifetime risk is 20% or greater. This exam was interpreted at Station ID: [id number]. NOTE: For mammograms, a report in lay terms will be sent to the patient. Approximately 15% of breast malignancies will not be visualized mammographically. In the management of a palpable breast mass, a negative mammogram must not discourage biopsy of a clinically suspicious lesion. Electronically Signed By: Unruly Frederick M.D. [facility]/:05/25/2023 17:26:55 letter sent: Additional Imaging Needed ACR BI-RADS Category 0: Incomplete 3340F
== END ==
PROVIDERS: Family Provider Family Medicine; PCP Family Medicine; Referring Provider Family Medicine; Visit Provider Family Medicine
DX: Z12.31 Encounter for screening mammogram for malignant neoplasm of breast (principal); Z80.3 Family history of malignant neoplasm of breast
CPT/HCPCS: 77063; 77067

== ENCOUNTER → 2023-06-07 09:25 | Outpatient (CLI) | payer MEDICARE, OTHER, SELFPAY ==
--- NOTE | 2023-06-07 | DI.MG.S_ITS ---
UNILATERAL LEFT DIGITAL DIAGNOSTIC MAMMOGRAM 3D/2D WITH ADDITIONAL VIEWS: 06/07/2023 CLINICAL: Additional evaluation requested from prior study. Comparison is made to exams dated: 05/25/2023 mammogram, 05/22/2022 mammogram, and 05/21/2021 mammogram - [facility]. There are scattered areas of fibroglandular density in the left breast (category b / 25%-50% glandular tissue). There is a new 7 mm oval focal asymmetry in the left breast at 4 o'clock middle depth. This is seen in additional views. No other significant masses or calcifications are seen in the breast. IMPRESSION: INCOMPLETE: NEEDS ADDITIONAL IMAGING EVALUATION The new 7 mm oval focal asymmetry in the left breast resembles a cyst but remains indeterminate. An ultrasound is recommended. This was performed immediately following this exam. Based on the Tyrer Cuzick model (a risk assessment model) the patient's lifetime risk is 3.3% and her 10 year risk is 2.2%. According to the ACR, ACS, and NCCN guidelines, an annual breast MRI exam along with mammogram is recommended if the patient's lifetime risk is 20% or greater. This exam was interpreted at Station ID: [id number]. NOTE: For mammograms, a report in lay terms will be sent to the patient. Approximately 15% of breast malignancies will not be visualized mammographically. In the management of a palpable breast mass, a negative mammogram must not discourage biopsy of a clinically suspicious lesion. Electronically Signed By: Gissell jiménez/:06/07/2023 10:05:33 ACR BI-RADS Category 0: Incomplete 3340F
--- NOTE | 2023-06-07 09:26 | DI.US.S_ITS ---
LIMITED ULTRASOUND OF LEFT BREAST: 06/07/2023 CLINICAL: Patient returns today to evaluate a focal asymmetry in the left breast. Comparison is made to exams dated: 06/07/2023 mammogram, 05/25/2023 mammogram, 05/22/2022 mammogram, and 05/21/2021 mammogram - [facility]. Color flow ultrasound of the left breast 4-5 o'clock region was performed. Dunaway scale images of the real-time examination were reviewed. There is a 0.6 cm x 0.4 cm x 0.3 cm oval complicated cyst with a septated internal wall in the left breast at 4 o'clock middle depth 6 cm from the nipple. This oval complicated cyst is hypoechoic with posterior acoustic enhancement. This correlates with mammography findings. Color flow imaging demonstrates that there is no vascularity present. IMPRESSION: PROBABLY BENIGN The 0.6 cm x 0.4 cm x 0.3 cm oval complicated cyst in the left breast has a differential diagnosis of apocrine metaplasia or a complicated cyst and is probably benign. A follow-up ultrasound in 6 months is recommended to demonstrate stability. Findings and recommendations were conveyed to the patient at time of exam. This exam was interpreted at Station ID: [id number]. Electronically Signed By: Gissell jiménez/:06/07/2023 10:45:01 Entry: - 06/08/2023 14:59:47 letter sent: Followup Recommended Ultrasound BI-RADS: 3 Probably benign
== END ==
PROVIDERS: Family Provider Family Medicine; PCP Family Medicine; Referring Provider Family Medicine; Visit Provider Family Medicine
DX: R92.8 Other abnormal and inconclusive findings on diagnostic imaging of breast (principal); N60.02 Solitary cyst of left breast
CPT/HCPCS: 76642; 77065; G0279

== ENCOUNTER → 2023-12-08 16:34 | Outpatient (CLI) | payer MEDICARE, OTHER, SELFPAY ==
--- NOTE | 2023-12-08 16:36 | DI.MRI.S_ITS ---
PROCEDURE: MR SHOULDER LT WO CON INDICATIONS: acute shoulder pain TECHNIQUE: Noncontrast oblique coronal T2 fast spin echo with fat saturation, oblique sagittal T1 spin echo and T2 fast spin echo with fat saturation, axial T1 spin echo and T2 fast spin echo with fat saturation through the shoulder. COMPARISON: None. FINDINGS: Image quality: Excellent. Rotator cuff: Low-grade articular and bursal surface partial thickness tear involving distal supraspinatus at its insertion on the humeral head is seen extending to musculotendinous junction. Distal infraspinatus and subscapularis tendinosis is seen. No full-thickness rotator cuff tendon rupture. Sagittal images demonstrate no significant rotator cuff muscle atrophy. Bones and bursae: No bone marrow contusions or fractures. Moderate acromioclavicular joint osteoarthritic changes are seen with joint space narrowing and prominent downward osteophyte formation depressing the musculotendinous junction of supraspinatus. Small amount of joint effusion and subacromial subdeltoid bursal fluid is seen, no gross loose bodies. Capsule and soft tissues: There is subtle fraying of superior anterior labrum with T2 hyperintense signal at 12 to 1 o'clock position suggestive of subtle superior anterior labral tear. The long head of the biceps tendon appears attenuated at the level of greater tuberosity. The rotator interval appears normal, without fibrosis. The coracohumeral ligament is normal in thickness. IMPRESSION: 1. Low-grade articular and bursal surface partial thickness tear involving distal supraspinatus extending to musculotendinous junction. Distal infraspinatus and subscapularis tendinosis. No full-thickness rotator cuff tendon rupture. No significant rotator cuff muscle atrophy. 2. Moderate acromioclavicular joint osteoarthritis. No fracture or dislocation. Small joint effusion and subacromial subdeltoid bursal fluid, no gross loose bodies. 3. Suggestion of subtle superior anterior labral tear at 12 to 1 o'clock position. 4. Low to moderate grade partial-thickness tear involving proximal long head of biceps tendon at the level of humeral head. Dictated by: Tapan Morfin M.D. on 12/08/2023 at 17:32 Approved by: Tapan Morfin M.D. on 12/08/2023 at 17:40
== END ==
PROVIDERS: Family Provider Family Medicine; PCP Family Medicine; Referring Provider Family Medicine; Visit Provider Family Medicine
DX: M75.112 Incomplete rotator cuff tear or rupture of left shoulder, not specified as traumatic (principal); M19.012 Primary osteoarthritis, left shoulder; S46.112A Strain of muscle, fascia and tendon of long head of biceps, left arm, initial encounter; M25.512 Pain in left shoulder; M25.612 Stiffness of left shoulder, not elsewhere classified; M25.412 Effusion, left shoulder
CPT/HCPCS: 73221

== ENCOUNTER → 2023-12-15 10:14 | Outpatient (CLI) | payer MEDICARE, OTHER, SELFPAY ==
--- NOTE | 2023-12-15 10:19 | DI.US.S_ITS ---
LIMITED ULTRASOUND OF LEFT BREAST: 12/15/2023 CLINICAL: 6 month follow up left breast. Comparison is made to exams dated: 06/07/2023 ultrasound, 06/07/2023 mammogram, 05/25/2023 mammogram, 05/22/2022 mammogram, 05/21/2021 mammogram, and 05/16/2020 mammogram - [facility]. Color flow and real-time ultrasound of the left breast 4 o'clock region were performed. Dunaway scale images of the real-time examination were reviewed. There is a possible stable 0.4 cm x 0.3 cm x 0.3 cm oval complicated cyst in the left breast at 4 o'clock middle depth 6 cm from the nipple. This correlates with mammography findings. IMPRESSION: PROBABLY BENIGN The stable 0.4 cm x 0.3 cm x 0.3 cm oval complicated cyst in the left breast has a differential diagnosis of apocrine metaplasia or a complicated cyst and is probably benign. US followup in 6months recommended. This exam was interpreted at Station ID: [id number]. Electronically Signed By: Tom Adams M.D. lc/:12/15/2023 10:59:41 letter sent: Followup Recommended Ultrasound BI-RADS: 3 Probably benign
== END ==
LOC: US 10:19
PROVIDERS: Family Provider Family Medicine; PCP Family Medicine; Referring Provider Family Medicine; Visit Provider Family Medicine
DX: R92.8 Other abnormal and inconclusive findings on diagnostic imaging of breast (principal); N60.02 Solitary cyst of left breast
CPT/HCPCS: 76642

== ENCOUNTER 2024-03-19 16:40 | Emergency (ER) | payer MEDICARE, OTHER, SELFPAY ==
[2024-03-19 16:43] VITALS: BP 128/91; PULSE 116; RESP 18; TEMP 38.1; O2SAT 98; BMI 21.9
--- NOTE | 2024-03-19 16:50 | DI.RAD.S_ITS ---
PROCEDURE: XR CHEST 1V INDICATIONS: cough, sob TECHNIQUE: One view of the chest was acquired. COMPARISON: [facility], CR, XR CHEST 1V, 04/28/2023, 21:57. FINDINGS: Surgical changes and devices: None. Lungs and pleura: Lungs are clear. No pleural effusions or pneumothorax. Mediastinum: Mediastinal contours appear normal. Heart size is normal. Bones and chest wall: No suspicious bony lesions. Overlying soft tissues appear unremarkable. IMPRESSION: No acute pulmonary process. Dictated by: Jodie Kelely M.D. on 03/19/2024 at 17:37 Approved by: Jodie Kelley M.D. on 03/19/2024 at 17:38
--- NOTE | 2024-03-19 17:17 | EKG_ITS ---
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
[2024-03-19 17:19] VITALS: TEMP 38.1
[2024-03-19] MEDS: ACETAMINOPHEN 325 MG TABLET 975 MG PO (17:19)
[2024-03-19 17:35] LABS: Influenza A - CEPHEID Flu A NEGATIVE (NEGATIVE); Influenza B - CEPHEID Flu B NEGATIVE (NEGATIVE); Respiratory Syncytial Virus Negative (Negative)
[2024-03-19] MEDS: ALBUTEROL 2.5 MG/3 ML NEB (ADULT) INH (17:36)
[2024-03-19 18:18] LABS: COVID-19 CEPHEID 4-PLEX PCR POSITIVE (Negative)
[2024-03-19 18:26] VITALS: TEMP 37.1
[2024-03-19] MEDS: predniSONE 20 MG TABLET 60 MG PO (18:46)
--- NOTE | 2024-03-19 18:48 | ED_ITS ---
HPI - URI/Sore Throat <Magui Rashid PA-C - Last Filed: 03/19/24 19:01> General Chief Complaint: Upper Respiratory Symptoms Stated Complaint: ASTHMA ATTACK Time Seen by Provider: 03/19/24 17:10 Source: patient Mode of arrival: Ambulatory History of Present Illness HPI Narrative: 73-year-old female with past medical history asthma presents to the ED with wheezing and shortness of breath for 2 days. Patient denies fever, chills, rhinorrhea, chest pain, nausea, vomiting, diarrhea. Patient states that she has not been sick recently. Patient has been using her albuterol inhaler today with minimal relief. Patient is also out of her nebulizer solution which she prefers to use as opposed to the inhaler. Related Data Home Medications Medication Instructions Recorded Confirmed epinephrine 0.3 mg/0.3 mL 3 ml IM PRN PRN Allergic Reaction 03/26/19 12/06/23 injection, auto-injector multivitamin 1 tab PO DAILY 05/10/19 12/06/23 omega 2-lnc-ufi-fish oil 1,000 mg 2 cap PO DAILY 05/10/19 12/06/23 (120 mg-180 mg) capsule (Fish Oil) polyethylene glycol 3350 17 17 gram PO DAILY 03/07/20 12/06/23 gram/dose oral powder (Miralax) hydroxychloroquine 200 mg tablet 200 mg PO ONCE 11/16/21 12/06/23 ivermectin 1 % topical cream applic topical Rosacea 12/31/22 12/06/23 loratadine 10 mg tablet 10 mg PO DAILY 12/31/22 12/06/23 Previous Rx's Medication Instructions Recorded Spacer for inhaler #1 ea 02/02/19 diclofenac sodium 1 % topical gel See Rx Instructions .Route 12/31/22 .COMPLEX #900 grams acyclovir 5 % topical cream 1 applic topical 5XD 4 days #5 04/05/23 grams ondansetron 4 mg disintegrating 4 mg PO Q8H PRN nausea and 04/29/23 tablet vomiting #10 tabs conjugated estrogens 0.625 mg/gram 1,000 mg vaginal 2XW #30 grams 07/11/23 vaginal cream (Premarin) albuterol sulfate 90 mcg/actuation 2 inh inhalation QID PRN Asthma #1 08/11/23 breath activated powder inhaler ea famotidine 20 mg tablet 20 mg PO DAILY #90 tabs 09/30/23 zolpidem 6.25 mg tablet,extended 6.25 mg PO BEDTIME PRN sleep #20 03/06/24 release,multiphase (Ambien CR) tabs albuterol sulfate 2.5 mg/0.5 mL 2.5 mg (0.5 mL) inhalation Q6H PRN 03/19/24 solution for nebulization shortness of breath or wheezing #30 ea albuterol sulfate 90 mcg/actuation 2 puff inhalation Q6H PRN 03/19/24 aerosol inhaler shortness of breath or wheezing #6.7 grams prednisone 20 mg tablet 60 mg (3 x 20 mg) PO DAILY 5 days 03/19/24 #15 tabs Allergies Allergy/AdvReac Type Severity Reaction Status Date / Time hydrocodone [HYDROCODONE] Allergy Intermediate ITCHY, Verified 03/19/24 16:49 NAUSEA, SOB sodium lauryl sulfate Allergy Unknown Rash Verified 03/19/24 16:49 Proton Pump Inhibitors AdvReac Severe Diarrhea - Verified 03/19/24 16:49 [PROTON PUMP INHIBITORS] severe cetirizine [CETIRIZINE] AdvReac Intermediate insomnia, Verified 03/19/24 16:49 nightmares fexofenadine [From DILAN] AdvReac Intermediate UNABLE TO Verified 03/19/24 16:49 SLEEP ENOUGH TO DISRUPT LIFE fluorouracil [From Efudex] AdvReac Intermediate depression Verified 03/19/24 16:49 and brain fogginess hyoscyamine AdvReac Intermediate Insomnia Verified 03/19/24 16:49 Latex, Natural Rubber AdvReac Intermediate Skin Verified 03/19/24 16:49 redness magnesium citrate AdvReac Intermediate Nausea, Verified 03/19/24 16:49 stomach pain montelukast [MONTELUKAST] AdvReac Intermediate Anxiety Verified 03/19/24 16:49 palpitations rabeprazole [From ACIPHEX] AdvReac Mild Headaches Verified 03/19/24 16:49 Dry throat Review of Systems <Magui Rashid PA-C - Last Filed: 03/19/24 19:01> Constitutional Constitutional: Denies chills, Denies fatigue, Denies fever(s), Denies frequent falls, Denies lethargy and Denies weakness Eyes Eyes: Denies change in vision, Denies eye discharge, Denies irritation and Denies loss of vision ENT Ears, Nose, Mouth, and Throat: Denies change in voice, Denies dizziness, Denies neck pain, Denies sore throat and Denies throat swelling Cardiovascular Cardiovascular: Denies chest pain, Denies irregular heart rhythm, Denies lightheadedness, Denies palpitations, Reports dyspnea, Denies dyspnea on exertion and Denies orthopnea Respiratory Respiratory: Reports cough, Reports dyspnea, Denies dyspnea on exertion and Reports wheezing Gastrointestinal Gastrointestinal: Denies abdominal pain, Denies change in bowel habits, Denies diarrhea, Denies nausea and Denies vomiting Musculoskeletal Musculoskeletal: Denies neck pain and Denies numbness Integumentary/Breasts Skin/Breast: Denies pruritus, Denies erythema, Denies rash and Denies wounds Neurologic Neurologic: Denies behavioral changes, Denies confusion, Denies dizziness, Denies frequent falls, Denies loss of vision, Denies numbness and Denies weakness Psychiatric Psychiatric: Denies anxiety, Denies behavioral changes, Denies confusion, Denies depression, Denies homicidal ideation and Denies suicidal ideation Endocrine Endocrine: Denies fatigue, Denies flushing and Denies palpitations Hematologic/Lymphatic Hematologic/Lymphatic: Denies easy bruising Allergic/Immunologic Allergic/Immunologic: Denies urticaria, Denies throat swelling and Reports wheezing Patient History <Magui Rashid PA-C - Last Filed: 03/19/24 19:01> Medical History (Updated 03/19/24 @ 18:40 by Magui Rashid PA-C) Impaired range of motion of left shoulder Acute pain of left shoulder Rapid time-zone change Mild hyperlipidemia Diaphoresis Hair loss Numbness of toes Sore of lower lip Finger pain, right Chronic pain of left ankle Left-sided low back pain without sciatica Somatic dysfunction of lower extremity Bilateral knee pain Stress incontinence in female Constipation due to slow transit Rheumatoid arthritis Rheumatoid arthritis Upper extremity somatic dysfunction Bilateral hand pain Somatic dysfunction of right lower extremity Somatic dysfunction of abdominal region Sacral region somatic dysfunction Pelvic somatic dysfunction Segmental and somatic dysfunction of rib cage Thoracic region somatic dysfunction Cervical somatic dysfunction Stiff neck Vitamin D deficiency Thyroid nodule Right hip pain Paresthesia of both feet History of Lyme disease Abnormal MRI, lumbar spine Colon polyps (04/2014) Multinodular goiter (~2000) Gastroparesis Gastric polyps (04/2014) Disseminated superficial actinic porokeratosis (DSAP) (~08/2017) Allergic rhinitis SVT (supraventricular tachycardia) (02/2016) Sleep apnea Actinic keratosis Eczema GERD (gastroesophageal reflux disease) Asthma Surgical History History of tonsillectomy (08/09/19) Family History Father Heart disease Mother Dementia Social History marital status: details: to Mert, lives in [place] number of children: 0 household members: spouse lives independently: Yes caregiver/support person: No housing: house pets and animals: Yes (dog, Nery) education level: college 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, 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 Smoking Status: Never smoker Tobacco: How many years used: 1 second hand exposure: Yes alcohol intake: never substance use type: does not use Smoking Status: Never smoker alcohol intake frequency: holidays/special occasions only Substance Use Type: does not use Exam <Magui Rashid PA-C - Last Filed: 03/19/24 19:01> Narrative Exam Narrative: Const General:?cooperative, healthy appearing and comfortable [facility] Head:?normal to inspection Ears:?hearing grossly normal bilaterally Nose:?external nose normal Face and sinus:?normal facial exam and sinuses nontender Mouth:?oral mucosae normal Throat:?posterior oropharynx normal Eyes General:?appearance normal, both eyes and all related structures Neck Neck:?normal visual inspection and no lymphadenopathy noted Resp Effort & Inspection:?normal respiratory effort Auscultation:?clear to auscultation bilaterally Cardio Rate:?regular rate Rhythm:?regular rhythm Neuro General:?patient alert, patient awake and patient oriented x3 Initial Vital Signs Initial Vital Signs: Vital Signs Temperature 100.5 F H 03/19/24 16:43 Pulse Rate 116 H 03/19/24 16:43 Respiratory Rate 18 03/19/24 16:43 Blood Pressure 128/91 H 03/19/24 16:43 Pulse Oximetry 98 03/19/24 16:43 Oxygen Delivery Method Room Air 03/19/24 16:43 <Lyssa Lino MD - Last Filed: 03/20/24 01:08> Initial Vital Signs Initial Vital Signs: Vital Signs Temperature 100.5 F H 03/19/24 16:43 Pulse Rate 116 H 03/19/24 16:43 Respiratory Rate 18 03/19/24 16:43 Blood Pressure 128/91 H 03/19/24 16:43 Pulse Oximetry 98 03/19/24 16:43 Oxygen Delivery Method Room Air 03/19/24 16:43 Course <Magui Rashid PA-C - Last Filed: 03/19/24 19:01> Orders Ordered: ED Orders 03/19/24 16:50 XR chest 1V Stat 03/19/24 16:53 Covid-19 + FLU A/B + RSV - PCR Stat 03/19/24 17:08 RT Consult Eval and Treat NOW 03/19/24 17:17 EKG-12 Lead Stat 03/19/24 18:57 CBC Auto Diff [Complete Blood Count AUTO DIFF] Stat CMP [Comprehensive Metabolic Panel] Stat Discontinued Medications Acetaminophen (Acetaminophen 325 Mg Tablet) 975 mg PO NOW ONE Stop: 03/19/24 17:12 Last Admin: 03/19/24 17:19 Dose: 975 mg Documented By: RB Albuterol (Albuterol 2.5 Mg/3 Ml Neb (Adult)) 2.5 mg INH NOW ONE Stop: 03/19/24 17:22 Last Admin: 03/19/24 17:36 Dose: 2.5 mg Documented By: SANG Prednisone (Prednisone 20 Mg Tablet) 60 mg PO NOW ONE Stop: 03/19/24 18:41 Last Admin: 03/19/24 18:46 Dose: 60 mg Documented By: RB Vital Signs Vital signs: Vital Signs - 8 hr 03/19/24 17:19 03/19/24 18:26 03/19/24 19:00 Temperature 100.5 F H 98.8 F 98.8 F Pulse Rate 89 Respiratory Rate 18 Blood Pressure 126/76 Pulse Oximetry 96 Oxygen Delivery Method Room Air <Lyssa Lino MD - Last Filed: 03/20/24 01:08> Orders Ordered: ED Orders 03/19/24 16:50 XR chest 1V Stat 03/19/24 16:53 Covid-19 + FLU A/B + RSV - PCR Stat 03/19/24 17:08 RT Consult Eval and Treat NOW 03/19/24 17:17 EKG-12 Lead Stat 03/19/24 18:57 CBC Auto Diff [Complete Blood Count AUTO DIFF] Stat CMP [Comprehensive Metabolic Panel] Stat Discontinued Medications Acetaminophen (Acetaminophen 325 Mg Tablet) 975 mg PO NOW ONE Stop: 03/19/24 17:12 Last Admin: 03/19/24 17:19 Dose: 975 mg Documented By: JESSE Albuterol (Albuterol 2.5 Mg/3 Ml Neb (Adult)) 2.5 mg INH NOW ONE Stop: 03/19/24 17:22 Last Admin: 03/19/24 17:36 Dose: 2.5 mg Documented By: SANG Prednisone (Prednisone 20 Mg Tablet) 60 mg PO NOW ONE Stop: 03/19/24 18:41 Last Admin: 03/19/24 18:46 Dose: 60 mg Documented By: RB Vital Signs Vital signs: Vital Signs - 8 hr 03/19/24 17:19 03/19/24 18:26 03/19/24 19:00 Temperature 100.5 F H 98.8 F 98.8 F Pulse Rate 89 Respiratory Rate 18 Blood Pressure 126/76 Pulse Oximetry 96 Oxygen Delivery Method Room Air MDM - URI/Sore Throat <Magui Rashid PA-C - Last Filed: 03/19/24 19:01> Lab Data 03/19/24 18:57 03/19/24 18:57 Labs: Lab Results 03/19/24 03/19/24 Range/Units 16:53 18:57 WBC 6.0 (4.5-11.0) X10^3/uL RBC 4.90 (4.0-5.2) X10^6/uL Hgb 15.0 (12.0-16.0) g/dL Hct 43.6 (36-46) % MCV 89.0 (80-100) fL MCH 30.7 (26-34) PG MCHC 34.4 (30-36) % RDW 13.4 (11.6-14.8) % Plt Count 127 L (150-400) X10^3/uL Neut % (Auto) 74.4 (50-75) % Lymph % (Auto) 16.1 L (25-40) % [place] % (Auto) 7.6 (3-14) % Eos % (Auto) 0.3 L (2-4) % Baso % (Auto) 1.6 (0-2) % Neut # (Auto) 4500 (2245-6923) /uL Lymph # (Auto) 1000 L (0017-7073) /uL [place] # (Auto) 500 (0-900) /uL Eos # (Auto) 0 (0-450) /uL Baso # (Auto) 100 (0-100) /uL Sodium 137 (137-145) mmol/L Potassium 3.7 (3.4-5.1) mmol/L Chloride 105 (98-107) mmol/L Carbon Dioxide 27 (22-32) mmol/L BUN 16 (7-17) mg/dL Creatinine 0.64 (0.52-1.04) mg/dL Estimated GFR > 60 (>60) mL/min BUN/Creatinine Ratio 25.0 H (6-22) Glucose 126 H (80-110) mg/dL Calcium 8.6 (8.4-10.2) mg/dL Total Bilirubin 1.1 (0.2-1.3) mg/dL AST 31 (14-36) IU/L ALT 22 (<35) IU/L Alkaline Phosphatase 105 (38-126) U/L Total Protein 7.3 (6.3-8.2) g/dL Albumin 4.4 (3.5-5.0) g/dL Globulin 2.9 (1.7-4.1) g/dL Albumin/Globulin Ratio 1.5 (1.0-2.8) SARS-CoV-2 (PCR) Positive H (Negative) Influenza A (RT-PCR) Flu a negative (NEGATIVE) Influenza B (RT-PCR) Flu b negative (NEGATIVE) RSV (PCR) Negative (Negative) [facility] Narrative Medical decision making narrative: 73-year-old female with past medical history asthma presents to the ED with wheezing and shortness of breath for 2 days. Concern for acute asthma exacerbation versus pneumonia versus URI versus other. EKG NSR with no acute ST_T changes. Patient tested positive for COVID-19. Patient's symptoms improved with a nebulizer treatment in the ED. patient given 1st dose of prednisone. Patient was tachycardic and febrile to 100.5 F and was given Tylenol. Prescribed albuterol inhaler, albuterol solution for the nebulizer, prednisone. Patient expressed interest in Paxlovid. Patient does not take any medications other than Pepcid AC. Will obtain labs to ascertain kidney function prior to prescribing Paxlovid. ED return precautions discussed with patient. Patient verbalized understanding. Currently awaiting labs. Dr. Lyssa Lino to prescribe Paxlovid ([facility] in [place]) as appropriate for kidney function. Pt has been discharged home. Medical records reviewed: Yes <Lyssa Lino MD - Last Filed: 03/20/24 01:08> Lab Data Labs: Lab Results 03/19/24 03/19/24 Range/Units 16:53 18:57 WBC 6.0 (4.5-11.0) X10^3/uL RBC 4.90 (4.0-5.2) X10^6/uL Hgb 15.0 (12.0-16.0) g/dL Hct 43.6 (36-46) % MCV 89.0 (80-100) fL MCH 30.7 (26-34) PG MCHC 34.4 (30-36) % RDW 13.4 (11.6-14.8) % Plt Count 127 L (150-400) X10^3/uL Neut % (Auto) 74.4 (50-75) % Lymph % (Auto) 16.1 L (25-40) % [place] % (Auto) 7.6 (3-14) % Eos % (Auto) 0.3 L (2-4) % Baso % (Auto) 1.6 (0-2) % Neut # (Auto) 4500 (2142-1445) /uL Lymph # (Auto) 1000 L (0085-0970) /uL [place] # (Auto) 500 (0-900) /uL Eos # (Auto) 0 (0-450) /uL Baso # (Auto) 100 (0-100) /uL Sodium 137 (137-145) mmol/L Potassium 3.7 (3.4-5.1) mmol/L Chloride 105 (98-107) mmol/L Carbon Dioxide 27 (22-32) mmol/L BUN 16 (7-17) mg/dL Creatinine 0.64 (0.52-1.04) mg/dL Estimated GFR > 60 (>60) mL/min BUN/Creatinine Ratio 25.0 H (6-22) Glucose 126 H (80-110) mg/dL Calcium 8.6 (8.4-10.2) mg/dL Total Bilirubin 1.1 (0.2-1.3) mg/dL AST 31 (14-36) IU/L ALT 22 (<35) IU/L Alkaline Phosphatase 105 (38-126) U/L Total Protein 7.3 (6.3-8.2) g/dL Albumin 4.4 (3.5-5.0) g/dL Globulin 2.9 (1.7-4.1) g/dL Albumin/Globulin Ratio 1.5 (1.0-2.8) SARS-CoV-2 (PCR) Positive H (Negative) Influenza A (RT-PCR) Flu a negative (NEGATIVE) Influenza B (RT-PCR) Flu b negative (NEGATIVE) RSV (PCR) Negative (Negative) Discharge Plan Departure Patient Disposition: Home Clinical Impression: COVID-19 Asthma exacerbation Qualifiers: Asthma severity: mild Asthma persistence: unspecified Qualified Code(s): J 45.901 - Unspecified asthma with (acute) exacerbation Instructions: DI for Asthma -- Adult, COVID-19 Activity Restrictions/Additional Instructions: You were evaluated in the ED today for wheezing and trouble breathing. You tested positive COVID-19, which is likely responsible for the wheezing. Your x- ray was normal. Your symptoms improved with a breathing treatment. You were also given a dose of prednisone in the ED. you have been prescribed prednisone and albuterol for use at home. You have been prescribed both an albuterol nebulizer solution as well as an inhaler. Please use the inhaler with a spacer for best results. Please follow-up with your PCP as soon as possible. Return to the ED if you have worsening symptoms, chest pain, trouble breathing. Prescriptions: New albuterol sulfate 2.5 mg/0.5 mL solution for nebulization 2.5 mg inhalation Q6H PRN (Reason: shortness of breath or wheezing) Qty: 30 2RF albuterol sulfate 90 mcg/actuation HFA aerosol inhaler 2 puff inhalation Q6H PRN (Reason: shortness of breath or wheezing) Qty: 6.7 2RF prednisone 20 mg tablet 60 mg PO DAILY 5 Days Qty: 15 0RF No Action (DME) Spacer for inhaler Qty: 1 0RF Dose Instruction: As directed Rx Instructions: Use as directed with inhaler acyclovir 5 % cream 1 applic topical 5XD 4 Days Qty: 5 3RF Premarin 0.625 mg/gram cream 1,000 mg vaginal 2XW Qty: 30 3RF albuterol sulfate 90 mcg/actuation aerosol powdr breath activated 2 inh inhalation QID PRN (Reason: Asthma) Qty: 1 3RF famotidine 20 mg tablet 20 mg PO DAILY Qty: 90 1RF zolpidem [Ambien CR] 6.25 mg tablet,ext release multiphase 6.25 mg PO BEDTIME PRN (Reason: sleep) Qty: 20 0RF multivitamin tablet 1 tab PO DAILY omega 5-oal-avy-fish oil [Fish Oil] 1,000 mg (120 mg-180 mg) capsule 2 cap PO DAILY hydroxychloroquine 200 mg tablet 200 mg PO ONCE ivermectin 1 % cream topical loratadine 10 mg tablet 10 mg PO DAILY diclofenac sodium 1 % gel See Rx Instructions .ROUTE .COMPLEX Qty: 900 3RF Dose Instruction: APPLY 2 GRAMS TOPICALLY FOUR TIMES A DAY. APPLY TO SINGLE WRIST OR HAND. FOR HAND INCLUDES PALM/FINGERS/BACK OF HAND Rx Instructions: APPLY 2 GRAMS TOPICALLY FOUR TIMES A DAY. APPLY TO SINGLE WRIST OR HAND. FOR HAND INCLUDES PALM/FINGERS/BACK OF HAND epinephrine [EpiPen 2-[place]iles] 0.3 mg/0.3 mL auto-injector 3 ml IM PRN PRN (Reason: Allergic Reaction) polyethylene glycol 3350 [Miralax] 17 gram/dose powder 17 gram PO DAILY ondansetron 4 mg tablet,disintegrating 4 mg PO Q8H PRN (Reason: nausea and vomiting) Qty: 10 0RF Referrals: Leoncio Bolanos DO [Primary Care Provider] - Stand Alone Forms: Patient Portal/API ED Sign-out <Lyssa Lino MD - Last Filed: 03/20/24 01:08> Cosign ED Attending Cosignature Attestation: Laboratory work reviewed, normal kidney function. Prescription for Paxlovid sent to patient's pharmacy per request. I did not personally evaluate this patient, she was discharged prior to receiving sign-out.
[2024-03-19 19:00] VITALS: BP 126/76; PULSE 89; RESP 18; TEMP 37.1; O2SAT 96
[2024-03-19 19:14] LABS: Add Manual Diff / Slide Review NO; Basophils Absolute Auto 100 /uL (0-100); Basophils Percent Auto 1.6 % (0-2); Eosinophils Absolute Auto 0 /uL (0-450); Eosinophils Percent Auto 0.3 % (2-4); Hematocrit 43.6 % (36-46); Lymphocytes Absolute Auto 1000 /uL (1100-4500); Lymphocytes Percent Auto 16.1 % (25-40); Mean Corpuscular HGB Conc 34.4 % (30-36); Mean Corpuscular Hemoglobin 30.7 PG (26-34); Monocytes Absolute Auto 500 /uL (0-900); Monocytes Percent Auto 7.6 % (3-14); Neutrophils Absolute Auto 4500 /uL (1500-7000); Neutrophils Percent Auto 74.4 % (50-75); Platelet Count 127 X10^3/uL (150-400); Red Cell Distribution Width 13.4 % (11.6-14.8)
[2024-03-19 19:32] LABS: Alanine Aminotransferase 22 IU/L (<35); Albumin 4.4 g/dL (3.5-5.0); Albumin Globulin Ratio 1.5 (1.0-2.8); Alkaline Phosphatase 105 U/L (38-126); Aspartate Aminotransferase 31 IU/L (14-36); Bilirubin Total 1.1 mg/dL (0.2-1.3); Blood Urea Nitrogen 16 mg/dL (7-17); Calcium 8.6 mg/dL (8.4-10.2); Carbon Dioxide 27 mmol/L (22-32); Chloride 105 mmol/L (98-107); Estimated Glomerular Filt Rate > 60 mL/min (>60); Globulin 2.9 g/dL (1.7-4.1); Glucose 126 mg/dL (80-110); HEMOLYSIS 18 (0-50); Potassium 3.7 mmol/L (3.4-5.1); Sodium 137 mmol/L (137-145); Total Protein 7.3 g/dL (6.3-8.2)
--- NOTE | 2024-03-19 20:19 | PC.NURSE ---
Per provider called Rx in for Paxlovid. Called pt to advise. Pt states is on his way to pickle cutter all her medications.
== END 2024-03-19 19:00 | disposition home or self-care (01) ==
PROVIDERS: Emergency Medicine; Emergency Provider Student in an Organized Health Care Education/Training Program; Family Provider Family Medicine; PCP Family Medicine
DX: U07.1 COVID-19 (principal); J45.901 Unspecified asthma with (acute) exacerbation
CPT/HCPCS: 0241U; 36415; 71045; 80053; 85025; 93005; 99284; J7613

== ENCOUNTER → 2024-04-13 07:33 | Outpatient (CLI) | payer MEDICARE, OTHER, SELFPAY ==
[2024-04-13 08:56] LABS: Add Manual Diff / Slide Review NO; Basophils Absolute Auto 0 /uL (0-100); Basophils Percent Auto 0.8 % (0-2); Eosinophils Absolute Auto 200 /uL (0-450); Eosinophils Percent Auto 4.5 % (2-4); Hematocrit 44.3 % (36-46); Hemoglobin 15.4 g/dL (12.0-16.0); Lymphocytes Absolute Auto 2000 /uL (1100-4500); Mean Corpuscular HGB Conc 34.7 % (30-36); Mean Corpuscular Hemoglobin 30.8 PG (26-34); Mean Corpuscular Volume 88.6 fL (80-100); Monocytes Absolute Auto 300 /uL (0-900); Monocytes Percent Auto 7.1 % (3-14); Neutrophils Absolute Auto 1800 /uL (1500-7000); Neutrophils Percent Auto 40.6 % (50-75); Platelet Count 166 X10^3/uL (150-400); Red Cell Distribution Width 13.4 % (11.6-14.8); White Blood Cell Count 4.3 X10^3/uL (4.5-11.0)
[2024-04-13 09:17] LABS: Alanine Aminotransferase 28 IU/L (<35); Albumin 4.3 g/dL (3.5-5.0); Albumin Globulin Ratio 1.9 (1.0-2.8); Alkaline Phosphatase 110 U/L (38-126); Aspartate Aminotransferase 30 IU/L (14-36); BUN Creatinine Ratio 27.4 (6-22); Bilirubin Total 1.2 mg/dL (0.2-1.3); Blood Urea Nitrogen 20 mg/dL (7-17); Calcium 8.9 mg/dL (8.4-10.2); Carbon Dioxide 26 mmol/L (22-32); Chloride 105 mmol/L (98-107); Cholesterol 217 mg/dL (140-199); Estimated Glomerular Filt Rate > 60 mL/min (>60); Globulin 2.3 g/dL (1.7-4.1); Glucose 89 mg/dL (80-110); HDL Cholesterol 61 mg/dL (40-60); HEMOLYSIS < 15 (0-50); LDL Cholesterol Calculated 119 mg/dL (<100); Potassium 3.9 mmol/L (3.4-5.1); Sodium 138 mmol/L (137-145); Total Protein 6.6 g/dL (6.3-8.2); Triglycerides 184 mg/dL (35-150)
[2024-04-13 09:32] LABS: Vitamin D 25 Hydroxy (D3) 39.4 ng/mL (30.0-100.0)
[2024-04-13 10:07] LABS: Vitamin B12 921 pg/mL (239-931)
== END ==
PROVIDERS: Family Provider Family Medicine; PCP Family Medicine; Referring Provider Family Medicine; Visit Provider Family Medicine
DX: E78.5 Hyperlipidemia, unspecified (principal); E55.9 Vitamin D deficiency, unspecified; E80.4 Gilbert syndrome; R20.2 Paresthesia of skin
CPT/HCPCS: 36415; 80053; 80061; 82306; 82607; 85025

== ENCOUNTER → 2024-06-08 09:16 | Outpatient (CLI) | payer MEDICARE, OTHER, SELFPAY ==
--- NOTE | 2024-06-08 09:17 | DI.US.S_ITS ---
LIMITED ULTRASOUND OF LEFT BREAST AND AXILLA: 06/08/2024 CLINICAL: Patient returns for a 6 month follow up of the left breast. Comparison is made to exams dated: 06/08/2024 mammogram, 12/15/2023 ultrasound, 06/07/2023 ultrasound, 06/07/2023 mammogram, 05/25/2023 mammogram, and 05/22/2022 mammogram - [facility]. Color flow and real-time ultrasound of the left breast 3-4 o'clock, and axilla regions were performed. Dunaway scale images of the real-time examination were reviewed. There is a benign 0.4 cm simple cyst in the left breast at 4 o'clock, 6 cm from the nipple. This correlates with mammography findings. There also is a benign 0.6 cm simple cyst in the left breast at 3 o'clock, 7 cm from the nipple. This correlates with mammography findings. IMPRESSION: BENIGN Left breast simple cysts at 3 and 4 o'clock positions are benign. No mammographic or sonographic evidence of malignancy. A 1 year screening mammogram is recommended. Findings and recommendations were conveyed to the patient during today's evaluation. Electronically Signed By: Josefa Ruiz M.D., Ph.D. eb/:06/08/2024 13:11:52 letter sent: Normal Exam ACR BI-RADS Category 2: Benign 3342F
--- NOTE | 2024-06-08 09:17 | DI.MG.S_ITS ---
BILATERAL DIGITAL DIAGNOSTIC MAMMOGRAM 3D/2D: 06/08/2024 CLINICAL: Patient returns for a 6 month follow up of the left breast, due for bilateral exam. Comparison is made to exams dated: 05/25/2023 mammogram, 05/22/2022 mammogram, and 05/21/2021 mammogram - [facility]. There are scattered areas of fibroglandular density (category b / 25%-50% glandular tissue). There is a 5 mm oval mass in the left breast at 4 o'clock middle depth, slightly decreased in size since 06/07/2023. There is a round circumscribed mass at 3 o'clock middle depth measuring 6 mm. No other significant masses, calcifications, or other findings are seen in either breast. IMPRESSION: INCOMPLETE: NEED ADDITIONAL IMAGING EVALUATION Left breast 5 mm oval mass at 4 o'clock middle depth and 6 mm round mass at 3 o'clock middle depth. An ultrasound is recommended for further evaluation and is scheduled to immediately follow this examination. Based on the Tyrer Cuzick model (a risk assessment model) the patient's lifetime risk is 3.1% and her 10 year risk is 2.3%. According to the ACR, ACS, and NCCN guidelines, an annual breast MRI exam along with mammogram is recommended if the patient's lifetime risk is 20% or greater. This exam was interpreted at Station ID: [id number]. NOTE: For mammograms, a report in lay terms will be sent to the patient. Approximately 15% of breast malignancies will not be visualized mammographically. In the management of a palpable breast mass, a negative mammogram must not discourage biopsy of a clinically suspicious lesion. Electronically Signed By: Josefa Ruiz M.D., Ph.D. eb/:06/08/2024 12:58:22 ACR BI-RADS Category 0: Incomplete: Need Additional Imaging Evaluation 3340F
== END ==
LOC: MAMMO 09:17
PROVIDERS: Family Provider Family Medicine; PCP Family Medicine; Referring Provider Family Medicine; Visit Provider Family Medicine
DX: R92.8 Other abnormal and inconclusive findings on diagnostic imaging of breast (principal); N60.02 Solitary cyst of left breast
CPT/HCPCS: 76642; 77066; G0279

== ENCOUNTER 2024-07-15 18:56 | Emergency (ER) | payer MEDICARE, OTHER, SELFPAY ==
[2024-07-15 19:05] VITALS: BP 142/78; PULSE 66; RESP 22; O2SAT 99
[2024-07-15 19:06] VITALS: BP 177/77; PULSE 86; RESP 17; TEMP 36.6; O2SAT 99
--- NOTE | 2024-07-15 19:07 | ED.EXTPRO ---
HPI - Extremity Problem General Chief complaint: Extremity Problem,Nontraumatic Stated complaint: gout attack in right big toe Time Seen by Provider: 07/15/24 19:04 Source: patient Mode of arrival: Ambulatory Limitations: no limitations History of Present Illness HPI Narrative: Patient is a 73-year-old female here for evaluation of what she states is a gout attack to her right great toe. States she has had a history of gout in the past. She states that her current symptoms started approximately 1 hour ago. She states it feels just like her prior history of gout. No trauma. She was sitting at the time of the onset. She states this is just like her prior episodes of gout started which was a very sudden onset. She has taken medications in the past but does not know what they are. Is not on medications on a regular basis. No other symptoms. Related Data Home Medications Medication Instructions Recorded Confirmed epinephrine 0.3 mg/0.3 mL 3 ml IM PRN PRN Allergic Reaction 03/26/19 04/17/24 injection, auto-injector multivitamin 1 tab PO DAILY 05/10/19 04/17/24 omega 1-edl-wjl-fish oil 1,000 mg 2 cap PO DAILY 05/10/19 04/17/24 (120 mg-180 mg) capsule (Fish Oil) polyethylene glycol 3350 17 17 gram PO DAILY 03/07/20 04/17/24 gram/dose oral powder (Miralax) ivermectin 1 % topical cream applic topical Rosacea 12/31/22 04/17/24 loratadine 10 mg tablet 10 mg PO DAILY 12/31/22 04/17/24 Previous Rx's Medication Instructions Recorded Spacer for inhaler #1 ea 02/02/19 conjugated estrogens 0.625 mg/gram 1,000 mg vaginal 2XW #30 grams 07/11/23 vaginal cream (Premarin) zolpidem 6.25 mg tablet,extended 6.25 mg PO BEDTIME PRN sleep #20 03/06/24 release,multiphase (Ambien CR) tabs albuterol sulfate 2.5 mg/0.5 mL 2.5 mg (0.5 mL) inhalation Q6H PRN 03/19/24 solution for nebulization shortness of breath or wheezing #30 ea albuterol sulfate 90 mcg/actuation 2 puff inhalation Q6H PRN 03/19/24 aerosol inhaler shortness of breath or wheezing #6.7 grams famotidine 20 mg tablet 20 mg PO DAILY #90 tabs 03/21/24 diclofenac sodium 1 % topical gel See Rx Instructions .Route 04/17/24 .COMPLEX #900 grams acyclovir 5 % topical cream 1 applic topical 5XD 4 days #5 04/26/24 grams colchicine 0.6 mg capsule See Rx Instructions .Route 07/15/24 .COMPLEX #7 caps Allergies Allergy/AdvReac Type Severity Reaction Status Date / Time hydrocodone [HYDROCODONE] Allergy Intermediate ITCHY, Verified 04/17/24 15:23 NAUSEA, SOB sodium lauryl sulfate Allergy Unknown Rash Verified 04/17/24 15:23 Proton Pump Inhibitors AdvReac Severe Diarrhea - Verified 04/17/24 15:23 [PROTON PUMP INHIBITORS] severe cetirizine [CETIRIZINE] AdvReac Intermediate insomnia, Verified 04/17/24 15:23 nightmares fexofenadine [From DILAN] AdvReac Intermediate UNABLE TO Verified 04/17/24 15:23 SLEEP ENOUGH TO DISRUPT LIFE fluorouracil [From Efudex] AdvReac Intermediate depression Verified 04/17/24 15:23 and brain fogginess hyoscyamine AdvReac Intermediate Insomnia Verified 04/17/24 15:23 Latex, Natural Rubber AdvReac Intermediate Skin Verified 04/17/24 15:23 redness magnesium citrate AdvReac Intermediate Nausea, Verified 04/17/24 15:23 stomach pain montelukast [MONTELUKAST] AdvReac Intermediate Anxiety Verified 04/17/24 15:23 palpitations rabeprazole [From ACIPHEX] AdvReac Mild Headaches Verified 04/17/24 15:23 Dry throat Review of Systems Musculoskeletal Musculoskeletal: Reports system reviewed and no additional complaints, except as documented Integumentary/Breasts Skin/Breast: Reports system reviewed and no additional complaints, except as documented Neurologic Neurologic: Reports system reviewed and no additional complaints, except as documented Patient History Medical History Impaired range of motion of left shoulder Rapid time-zone change Mild hyperlipidemia Diaphoresis Hair loss Numbness of toes Sore of lower lip Finger pain, right Chronic pain of left ankle Left-sided low back pain without sciatica Somatic dysfunction of lower extremity Bilateral knee pain Stress incontinence in female Constipation due to slow transit Rheumatoid arthritis Rheumatoid arthritis Upper extremity somatic dysfunction Bilateral hand pain Somatic dysfunction of right lower extremity Somatic dysfunction of abdominal region Sacral region somatic dysfunction Pelvic somatic dysfunction Segmental and somatic dysfunction of rib cage Thoracic region somatic dysfunction Cervical somatic dysfunction Stiff neck Vitamin D deficiency Thyroid nodule Right hip pain Paresthesia of both feet History of Lyme disease Abnormal MRI, lumbar spine Colon polyps (04/2014) Multinodular goiter (~2000) Gastroparesis Gastric polyps (04/2014) Disseminated superficial actinic porokeratosis (DSAP) (~08/2017) Allergic rhinitis SVT (supraventricular tachycardia) (02/2016) Sleep apnea Actinic keratosis Eczema GERD (gastroesophageal reflux disease) Asthma Surgical History History of tonsillectomy (08/09/19) Family History Father Heart disease Mother Dementia Social History marital status: details: to Mert, lives in [place] number of children: 0 household members: spouse lives independently: Yes caregiver/support person: No housing: house pets and animals: Yes (dog, Nery) education level: college 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, 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 Smoking Status: Never smoker Tobacco: How many years used: 1 second hand exposure: Yes alcohol intake: never substance use type: does not use Smoking Status: Never smoker alcohol intake frequency: holidays/special occasions only Substance Use Type: does not use Exam Initial Vital Signs Initial Vital Signs: Vital Signs Pulse Rate 66 07/15/24 19:05 Respiratory Rate 22 07/15/24 19:05 Blood Pressure 142/78 H 07/15/24 19:05 Pulse Oximetry 99 07/15/24 19:05 Oxygen Delivery Method Room Air 07/15/24 19:05 Cardio Pulses: dorsalis pedis present on the right Skin Other: No redness of the great toe Neuro Sensory Exam: no sensory deficits noted Extrem Other: Swelling without redness to the base of the right great toe. It was tender to the touch. Course Orders Ordered: Discontinued Medications Colchicine (Colchicine 0.6 Mg Tablet) 1.2 mg PO NOW ONE Stop: 07/15/24 19:10 Last Admin: 07/15/24 19:17 Dose: 1.2 mg Documented By: Vital Signs Vital signs: Vital Signs - 8 hr 07/15/24 19:05 07/15/24 19:06 07/15/24 19:40 Temperature 97.8 F 98.2 F Pulse Rate 66 86 65 Respiratory Rate 22 17 16 Blood Pressure 142/78 H 177/77 H 151/67 H Pulse Oximetry 99 99 98 Oxygen Delivery Method Room Air Room Air Room Air MDM - Extremity (Nontraumatic) Medical Records Attestation: I reviewed the patient's medical records. MDM Narrative Medical decision making narrative: Patient has a history of gout. States this feels just like her prior history of gout. There was swelling to the right great toe without redness. Low suspicion for septic joint/infection/cellulitis. Review of the medical record shows that she has been on prednisone in the past however will try colchicine today. First dose given here in the ER and a prescription was sent to the pharmacy of her choice. She was given return precautions and follow-up instructions. She expressed understanding and agreement. Discharge Plan Departure Patient Disposition: Home Clinical Impression: Gout Instructions: Gout (Alternative Therapy), Gout Activity Restrictions/Additional Instructions: A prescription for colchicine was sent to [facility] per your recommendation. If you are still having symptoms in the morning they recommend taking 1 more tablet of this medication. You can take up to 3 tablets a day as needed. You can continue with anti-inflammatories. Return to the emergency department for new symptoms. Prescriptions: New colchicine 0.6 mg capsule See Rx Instructions .ROUTE .COMPLEX Qty: 7 0RF Rx Instructions: 2T PO at first sign of flare followed by 1T PO after 1 hour. Max is 1.8 mg/day No Action (DME) Spacer for inhaler Qty: 1 0RF Dose Instruction: As directed Rx Instructions: Use as directed with inhaler Premarin 0.625 mg/gram cream 1,000 mg vaginal 2XW Qty: 30 3RF zolpidem [Ambien CR] 6.25 mg tablet,ext release multiphase 6.25 mg PO BEDTIME PRN (Reason: sleep) Qty: 20 0RF famotidine 20 mg tablet 20 mg PO DAILY Qty: 90 1RF acyclovir 5 % cream 1 applic topical 5XD 4 Days Qty: 5 3RF multivitamin tablet 1 tab PO DAILY omega 5-kyj-oui-fish oil [Fish Oil] 1,000 mg (120 mg-180 mg) capsule 2 cap PO DAILY diclofenac sodium 1 % gel See Rx Instructions .ROUTE .COMPLEX Qty: 900 3RF Dose Instruction: APPLY 2 GRAMS TOPICALLY FOUR TIMES A DAY. APPLY TO SINGLE WRIST OR HAND. FOR HAND INCLUDES PALM/FINGERS/BACK OF HAND Rx Instructions: APPLY 2 GRAMS TOPICALLY FOUR TIMES A DAY. APPLY TO SINGLE WRIST OR HAND. FOR HAND INCLUDES PALM/FINGERS/BACK OF HAND ivermectin 1 % cream topical loratadine 10 mg tablet 10 mg PO DAILY epinephrine [EpiPen 2-Niles] 0.3 mg/0.3 mL auto-injector 3 ml IM PRN PRN (Reason: Allergic Reaction) polyethylene glycol 3350 [Miralax] 17 gram/dose powder 17 gram PO DAILY albuterol sulfate 2.5 mg/0.5 mL solution for nebulization 2.5 mg inhalation Q6H PRN (Reason: shortness of breath or wheezing) Qty: 30 2RF albuterol sulfate 90 mcg/actuation HFA aerosol inhaler 2 puff inhalation Q6H PRN (Reason: shortness of breath or wheezing) Qty: 6.7 2RF Referrals: Leoncio Bolanos DO [Primary Care Provider] - Stand Alone Forms: Patient Portal/API
[2024-07-15] MEDS: COLCHICINE 0.6 MG TABLET 1.2 MG PO (19:17)
[2024-07-15 19:40] VITALS: BP 151/67; PULSE 65; RESP 16; TEMP 36.8; O2SAT 98
== END 2024-07-15 19:41 | disposition home or self-care (01) ==
PROVIDERS: Emergency Provider Emergency Medicine; Family Provider Family Medicine; PCP Family Medicine
DX: M10.9 Gout, unspecified (principal)
CPT/HCPCS: 99283

== ENCOUNTER → 2024-12-12 09:33 | Outpatient (CLI) | payer MEDICARE, OTHER, SELFPAY ==
--- NOTE | 2024-12-12 09:35 | DI.RAD.S_ITS ---
PROCEDURE: FL BARIUM SWALLOW INDICATIONS: goiter COMPARISON: None. FINDINGS AND IMPRESSION: On lateral pharynx images, no maida aspiration is identified. On upright images, there is no obstructing stenosis or mass identified in the esophagus. No gastroesophageal reflux or significant hiatal hernia is seen. There is a small degree of residual in the esophagus. In recombinant position on motility evaluation, there is marked esophageal dysmotility with poor progression of the primary wave and tertiary contractions resulting in intra esophageal reflux. Approved by: Tom Adams M.D. on 12/12/2024 at 10:34
== END ==
PROVIDERS: Family Provider Family Medicine; PCP Family Medicine; Referring Provider Student in an Organized Health Care Education/Training Program; Visit Provider Student in an Organized Health Care Education/Training Program
DX: E04.9 Nontoxic goiter, unspecified (principal)
CPT/HCPCS: 74220

== ENCOUNTER → 2025-04-13 07:57 | Outpatient (CLI) | payer MEDICARE, OTHER, SELFPAY ==
[2025-04-13 09:56] LABS: Alanine Aminotransferase 26 IU/L (<35); Albumin 4.6 g/dL (3.5-5.0); Albumin Globulin Ratio 1.8 (1.0-2.8); Alkaline Phosphatase 116 U/L (38-126); Blood Urea Nitrogen 21 mg/dL (7-17); Calcium 9.2 mg/dL (8.4-10.2); Carbon Dioxide 29 mmol/L (22-32); Chloride 102 mmol/L (98-107); Cholesterol 197 mg/dL (140-199); Estimated Glomerular Filt Rate > 60 mL/min (>60); Globulin 2.5 g/dL (1.7-4.1); Glucose 92 mg/dL (70-99); HDL Cholesterol 54 mg/dL (40-60); HEMOLYSIS 15 (0-50); Potassium 4.3 mmol/L (3.4-5.1); Sodium 139 mmol/L (137-145); Total Protein 7.1 g/dL (6.3-8.2); Triglycerides 171 mg/dL (35-150)
[2025-04-13 11:13] LABS: Hematocrit 46.8 % (36-46); Hemoglobin 16.4 g/dL (12.0-16.0); Mean Corpuscular HGB Conc 35.0 % (30-36); Mean Corpuscular Hemoglobin 31.3 PG (26-34); Mean Corpuscular Volume 89.4 fL (80-100); Platelet Count 172 X10^3/uL (150-400)
[2025-04-13 11:18] LABS: Add Manual Diff / Slide Review YES
[2025-04-13 13:38] LABS: Basophils Percent Manual 1.0 % (0-1); Eosinophils Percent Manual 7.0 % (2-4); Lymphocytes Percent Manual 38.0 % (25-45); Monocytes Percent Manual 5.0 % (2-11); Neutrophils Absolute Manual 2793 /uL (3000-5900); RBC Morphology Normal Morphology; Segmented Neutrophils Percent 49.0 % (38-70); Total Cells Counted 100
== END ==
PROVIDERS: Family Provider Family Medicine; PCP Family Medicine; Referring Provider Family Medicine; Visit Provider Family Medicine
DX: E78.5 Hyperlipidemia, unspecified (principal); E80.4 Gilbert syndrome
CPT/HCPCS: 36415; 80053; 80061; 85007; 85025

== ENCOUNTER → 2025-06-14 11:08 | Outpatient (CLI) | payer MEDICARE, OTHER, SELFPAY ==
--- NOTE | 2025-06-14 11:10 | DI.MG.S_ITS ---
MM screening mammo BI: 06/14/2025. BI-RADS: 2 CLINICAL: 74-year old female for bilateral screening mammogram. Tyrer-Cuzick lifetime risk of 6.6%. No personal or first-degree family history of breast cancer. Current reported family history of breast cancer: paternal grandmother. PRIOR EXAMS 06/08/2024, 12/15/2023, 06/07/2023, 05/25/2023, MAMMOGRAPHY TECHNIQUE: 2D and 3D (tomosynthesis) digital mammographic views obtained, with additional images as needed for full coverage. Current study was also evaluated with a Computer Aided Detection (CAD) system. DENSITY C. The breasts are heterogeneously dense, which may obscure small masses. MAMMOGRAPHY FINDINGS Bilateral: Benign-appearing calcifications noted. There are no suspicious masses, calcifications, or other findings in the breast. IMPRESSION: * No evidence of malignancy with benign findings. RECOMMENDATIONS Bilateral * Annual screening mammography. OVERALL ASSESSMENT CATEGORY BI-RADS-2: Benign. The [employer] recommends annual screening mammography beginning at age 40 for women with average risk of breast cancer. ELECTRONICALLY SIGNED: Mague vAendaño M.D. on 06/14/2025 at 09:30:38 PM PT Interpreting Station ID: [id number]
== END ==
PROVIDERS: PCP Family Medicine; Referring Provider Family Medicine; Visit Provider Family Medicine
DX: Z12.31 Encounter for screening mammogram for malignant neoplasm of breast (principal); Z80.3 Family history of malignant neoplasm of breast; R92.333 Mammographic heterogeneous density, bilateral breasts
CPT/HCPCS: 77063; 77067

== ENCOUNTER → 2025-07-10 13:58 | Outpatient (CLI) | payer MEDICARE, OTHER, SELFPAY | PROVIDERS: PCP Family Medicine; Visit Provider Obstetrics & Gynecology | DX: N39.46 Mixed incontinence (principal) | CPT/HCPCS: 87086 ==

== ENCOUNTER → 2025-08-28 11:39 | Outpatient (CLI) | payer MEDICARE, OTHER, SELFPAY ==
[2025-08-28 14:25] LABS: Appearance Urine UA CLEAR; Bilirubin Urine UA NEGATIVE (NEGATIVE); Color Urine UA YELLOW; Glucose Urine UA NEGATIVE (Negative); Ketones Urine UA NEGATIVE (NEGATIVE); Leukocyte Esterase Urine UA NEGATIVE (NEGATIVE); Nitrite Urine UA NEGATIVE (Negative); Occult Blood Urine UA NEGATIVE (Negative); Protein Urine UA NEGATIVE (Negative); Specific Gravity Urine UA <=1.005 (1.000-1.035); Urobilinogen Urine UA 0.2 E.U./dL (0.2); pH Urine UA 6.5 (4.5-8.0)
[2025-08-28 14:33] LABS: Culture Indicated Urine Cult Not Indicated
== END ==
PROVIDERS: PCP Family Medicine; Visit Provider Obstetrics & Gynecology Gynecology
DX: N32.81 Overactive bladder (principal); N81.4 Uterovaginal prolapse, unspecified; N81.6 Rectocele; N81.11 Cystocele, midline
CPT/HCPCS: 81001